=== PATIENT | female | born 1955 | race Caucasian/White ===

== ENCOUNTER 2020-12-26 12:55 | Outpatient (REF) | payer MEDICARE, SELFPAY ==
--- NOTE | ~2020-12-26 | XR_ITS ---
EXAMINATION: XR CERVICAL SPINE CLINICAL INFORMATION: Neck pain. COMPARISON: None. TECHNIQUE: 6 views of the cervical spine, inclusive of flexion and extension views, were obtained. FINDINGS: There is normal cervical lordosis. The vertebral heights and alignment is normal. Loss of C6-C7 disc height is seen. The rest of the disc heights are normal. There is mild ventral spondylosis C4-C5 and C5-C6 disc levels. The neural foramina are widely patent on oblique views. The craniovertebral junction and the C1/C2 alignment is normal. There is head tilt to the right, likely secondary to spasm. The prevertebral soft tissues are normal. XR/XR cervical spine min 6V IMPRESSION: Mild degenerative disc changes C5 C6-C7 disc levels without visible acute fracture dislocation. There is mild spondylosis as described above.
== END 2020-12-26 12:56 | disposition home or self-care (01) ==
LOC: HO.XRAY 12:55
PROVIDERS: PCP Internal Medicine; Visit Provider Physical Medicine & Rehabilitation
DX: M54.2 Cervicalgia (principal)
CPT/HCPCS: 72052

== ENCOUNTER 2020-12-28 12:21 | Outpatient (REF) | payer MEDICARE, SELFPAY ==
--- NOTE | ~2020-12-28 | XR_ITS ---
EXAMINATION: XR BILATERAL KNEE AP STANDING XR LEFT KNEE LATERAL VIEW CLINICAL INFORMATION: Pain right knee. Pain in left knee. COMPARISON: None TECHNIQUE: AP bilateral knee 1 view.] Left knee lateral one view. FINDINGS: AP BILATERAL KNEE: There is a total left knee prosthesis in satisfactory alignment. There is moderate loss of medial and ryfo-[id number] loss of lateral compartment right knee joint with periarticular spurring. No bony erosive changes or loose body seen. LATERAL VIEW LEFT KNEE: Reveals minimal suprapatellar joint effusion. The patellar distal femoral prosthesis is in satisfactory alignment. No evidence of loosening. The soft tissues are normal. XR/XR knee LT 2V IMPRESSION: 1. Degenerative changes medial and lateral compartment right knee with mild hallux valgus deformity. 2. There is a total left knee prosthesis with prosthetic components in satisfactory alignment. There is mild suprapatellar joint effusion.
--- NOTE | ~2020-12-28 | XR_ITS ---
EXAMINATION: XR BILATERAL KNEE AP STANDING XR LEFT KNEE LATERAL VIEW CLINICAL INFORMATION: Pain right knee. Pain in left knee. COMPARISON: None TECHNIQUE: AP bilateral knee 1 view.] Left knee lateral one view. FINDINGS: AP BILATERAL KNEE: There is a total left knee prosthesis in satisfactory alignment. There is moderate loss of medial and otgj-[id number]-kdskhqtn loss of lateral compartment right knee joint with periarticular spurring. No bony erosive changes or loose body seen. LATERAL VIEW LEFT KNEE: Reveals minimal suprapatellar joint effusion. The patellar distal femoral prosthesis is in satisfactory alignment. No evidence of loosening. The soft tissues are normal. XR/XR knee standing BI IMPRESSION: 1. Degenerative changes medial and lateral compartment right knee with mild hallux valgus deformity. 2. There is a total left knee prosthesis with prosthetic components in satisfactory alignment. There is mild suprapatellar joint effusion.
== END 2020-12-28 12:22 | disposition home or self-care (01) ==
LOC: HO.HOSX 12:21
PROVIDERS: PCP Internal Medicine; Visit Provider Orthopaedic Surgery
DX: T84.84XA Pain due to internal orthopedic prosthetic devices, implants and grafts, initial encounter (principal); M25.561 Pain in right knee; Z96.652 Presence of left artificial knee joint
CPT/HCPCS: 73560; 73565; 99212

== ENCOUNTER → 2021-01-05 11:42 | Outpatient (BNVA) | payer MEDICARE, SELFPAY | PROVIDERS: PCP Internal Medicine; Visit Provider Physician Assistant | DX: D12.6 Benign neoplasm of colon, unspecified (principal); K59.09 Other constipation | CPT/HCPCS: 99212 ==

== ENCOUNTER 2021-02-02 14:00 | Outpatient (RCR) | payer MEDICARE, SELFPAY | END 2021-02-28 09:41 | disposition other institution (70) | LOC: HO.PT 14:00 | PROVIDERS: PCP Physical Medicine & Rehabilitation; Visit Provider Physical Medicine & Rehabilitation | DX: M54.2 Cervicalgia (principal); M40.209 Unspecified kyphosis, site unspecified | CPT/HCPCS: 97110; 97112; 97140; 97161 ==

== ENCOUNTER 2021-02-17 07:26 | Day surgery (SDC) | payer MEDICARE, SELFPAY ==
--- NOTE | 2021-02-16 12:05 | HO.ANESPROP2 ---
Documented by User: Belkis Zurita 02/16/21 12:06 HPI - Anesthesia Eval Consult details Narrative: 65yo F for Colonoscopy PMFSH Active Problems Active Problems: All Active Problems (Updated 01/06/21 @ 06:43 by Phuong Bravo PA-C) Chronic constipation (Acute) Colon adenomas (Acute) History of total left knee replacement (TKR) (Acute) Past Medical History Medical History Chronic constipation Colon adenomas Family History Family History Sister Cancer Surgical History Surgical History H/O colonoscopy H/O knee surgery Social History Social History Household Members: None Alcohol intake: current Alcohol intake frequency: does not drink Smoking Status: Never smoker Use of substances other than those prescribed or required for medical reasons: No Advance Directives: No Advance Directives Information Provided: Yes Meds Allergies Allergy/AdvReac Type Severity Reaction Status Date / Time No Known Allergies Allergy Verified 01/05/21 12:03 Home Medications Medication Instructions Recorded Confirmed Last Taken Type acetaminophen 650 mg/20.3 mL oral 650 mg PO Q6H PRN 12/28/20 01/05/21 Unknown History suspension cholecalciferol (vitamin D3) 25 25 mcg PO DAILY 12/28/20 01/05/21 Unknown History mcg (1,000 unit) capsule hydrochlorothiazide 25 mg tablet 25 mg PO DAILY 12/28/20 01/05/21 Unknown History tizanidine 2 mg capsule 2 mg PO BEDTIME 12/28/20 01/05/21 Unknown History topiramate 25 mg sprinkle capsule 25 mg PO DAILY 12/28/20 01/05/21 Unknown History Exam Exam Date and Time: February 16, 2021 1205 Assessment and Plan Assessment Anesthesia Assessment: Chart Reviewed Documented by User: Jo Love 02/17/21 08:03 [facility] Past Medical History Medical History Chronic constipation Colon adenomas Family History Family History Sister Cancer Surgical History Surgical History H/O colonoscopy H/O knee surgery Social History Social History Household Members: None Alcohol intake: current Alcohol intake frequency: does not drink Smoking Status: Never smoker Use of substances other than those prescribed or required for medical reasons: No Advance Directives: No Advance Directives Information Provided: Yes Meds Allergies Allergy/AdvReac Type Severity Reaction Status Date / Time No Known Allergies Allergy Verified 01/05/21 12:03 Home Medications Medication Instructions Recorded Confirmed Last Taken Type acetaminophen 650 mg/20.3 mL oral 650 mg PO Q6H PRN 12/28/20 01/05/21 Unknown History suspension cholecalciferol (vitamin D3) 25 25 mcg PO DAILY 12/28/20 01/05/21 Unknown History mcg (1,000 unit) capsule hydrochlorothiazide 25 mg tablet 25 mg PO DAILY 12/28/20 01/05/21 Unknown History tizanidine 2 mg capsule 2 mg PO BEDTIME 12/28/20 01/05/21 Unknown History topiramate 25 mg sprinkle capsule 25 mg PO DAILY 12/28/20 01/05/21 Unknown History Exam Airway Mallampati Class: II TM Dist: >3cm Neck ROM: Full Denture: Upper Loose/Missing/Broken Teeth: Yes, Upper and Lower Heart: RRR Lungs: CTA Assessment and Plan Assessment Anesthesia Assessment: Anesthesia Plan Discussed and Chart Reviewed Final Anesthetic Review NPO: Yes ASA Class: II Final Preanesthetic Review: Meds/Allgs Chart Reviewed, Consent Obtained/Reviewed and Anes Risks/Benef Reviewed Patient Risk: Low Procedure Risk: Low Anesthetic Plan Anesthetic Plan: MAC: Disposition: Standard PACU
[2021-02-17 07:59] VITALS: BMI 37.8
[2021-02-17 08:19] VITALS: BP 124/71; PULSE 63; RESP 16; TEMP 36.1; O2SAT 95
[2021-02-17] MEDS: Lactated Ringers 1,000 ML 100 ML IVCONT (08:19)
--- NOTE | 2021-02-17 08:32 | W.PM.OPN ---
Operative Note Operative Note Date of Service: 02/20/21 Narrative: Pre-op diagnosis: Colon cancer screening, chronic constipation Post-op diagnosis: other (Colon polyps, diverticulosis) Procedure: COLONOSCOPY TILL CECUM WITH BIOPSIES Consent: Indications for the procedure and potential complications of bleeding, perforation, reaction to medications and missed diagnosis were discussed with the patient with the help of a medicare insurance specialist and informed consent was obtained. Instrument: Olympus PCF H 190 L variable stiffness pediatric colonoscope Monitoring: Vital signs and clinical assessment, intermittent blood pressure monitoring, continuous EKG monitoring, Pulse oximetry and Carbon Dioxide monitoring were done throughout the procedure. Colon withdrawl time was 14 minutes. Procedure: The patient was placed in the left lateral decubitis position and pre-procedure medications were administered. After a digital rectal examination of the ano-rectum, the video colonoscope was inserted into the rectum and advanced through the colon to the cecum. The colonoscope was slowly withdrawn in a retrograde panoramic fashion and the colon mucosa was carefully examined including a retroflexed view of the rectum. Findings and interventions are described below. Procedure Difficulty: Without difficulty Findings: Terminal Ileum: Not evaluated Cecum: Two 3-5 mm diminutive appearing polyps removed with the cold biopsy. Ascending Colon: Polypectomy site visualized in the proximal ascending colon and no recurrent polyp was seen - random biopsies were obtained Transverse Colon: Normal Descending Colon: Moderate diverticulosis Sigmoid Colon: Two 4-5 mm diminutive appearing polyps removed with the cold biopsy. Severe diverticulosis with luminal narrowing Rectum: Normal Ano-rectum: Normal Colon preparation: Excellent Impression and Post Procedure Diagnosis: Colonoscopy Findings: Four diminutive polyps removed No recurrent polyp noted at polypectomy site in the ascending colon - biopsies were obtained Moderate to severe diverticulosis seen in the left colon Plan: Await pathology results Patient has an appointment on 03/01/21 in the GI Clinic with KADEN Ortega. Repeat Colonoscopy interval based on path results - in 3-5 years if polyps are adenomatous and due to a history of adenomatous colon polyps. Above findings were reviewed with the patient and colon polyps and diverticulosis handouts were given in the discharge area Surgeon: Dilip Rivera MD Anesthesia: MAC (Angelika Clemens CRNA) [facility] Nurse Practitioner: Bismark Naqvi Estimated blood loss (mL): 0 Pathology: other (A- CECAL POLYPS B- ASCENDING COLON POLYPECTOMY SITE C- SIGMOID POLYPS) Condition: stable Disposition: PACU
--- NOTE | 2021-02-17 08:32 | MHC.SHP ---
Pre-Procedural Eval Section A The patient is an INPATIENT: No The History & Physical has been completed within 30 days and I have reviewed it.: No Section B Chief Complaint: Colon Cancer Details of Present Illness: A 65-year-old female personal history of colon polyps follows up to day for polyp surveillance colonoscopy consult. She has chronic constipation, that she states has been ongoing pretty much lifelong, actually is not a change for her. She has not followed a bowel regimen. She has no other associated symptoms. She has no abdominal pain rectal bleeding fever or chills. She has very good appetite. She had colonoscopy colon2018/ -revealing adenomas-repeat 1-[address] Rivera Relevant Family History (Specify if Yes): Yes Relevant Social History: None Present Medications: see Short Stay Collaborative assessment Medical History: Significant History (Hx of colon polyps, chronic constipation) History of Previous Operations: Relevant previous surgery/procedure and date(s) (H/O colonoscopy H/O knee surgery) Allergies: Allergies Allergy/AdvReac Type Severity Reaction Status Date / Time No Known Allergies Allergy Verified 01/05/21 12:03 Review of Systems Sugical H&P ROS: Negative: Constitution, Cardiovascular and Respiratory and Yes, Specify: Gastrointestinal (Constipation) Exam Surgical H&P Exam: Normal: Heart, Normal: Lungs, Normal: Extremities and Normal: Abdomen Plan Diagnosis/Plan: Unchanged I have reviewed the history and physical and performed a pertinent physical examination on my patient. No changes have occurred unless specified.
[2021-02-17 09:19] VITALS: BP 112/69; PULSE 60; RESP 16; TEMP 36.4; O2SAT 99
[2021-02-17 09:34] VITALS: BP 115/70; PULSE 60; RESP 18; O2SAT 97
== END 2021-02-17 10:04 | disposition home or self-care (01) ==
PROVIDERS: PCP Internal Medicine; Visit Provider Internal Medicine Gastroenterology
PROC: 0DJD8ZZ Inspection of Lower Intestinal Tract, Via Natural or Artificial Opening Endoscopic (ICD-10-PCS; CPT 45378; principal; 2021-02-17 08:30)
DX: Z12.11 Encounter for screening for malignant neoplasm of colon (principal); Z86.010 Personal history of colon polyps; D12.0 Benign neoplasm of cecum; K63.5 Polyp of colon; K57.30 Diverticulosis of large intestine without perforation or abscess without bleeding; K59.09 Other constipation; Z79.899 Other long term (current) drug therapy
CPT/HCPCS: 45380; 88305

== ENCOUNTER → 2021-03-01 10:34 | Outpatient (BNVA) | payer MEDICARE, SELFPAY | PROVIDERS: PCP Internal Medicine; Visit Provider Physician Assistant | DX: Z13.89 Encounter for screening for other disorder (principal) | CPT/HCPCS: Q3014 ==

== ENCOUNTER 2021-03-02 13:26 | Outpatient (REF) | payer MEDICARE, SELFPAY ==
[2021-03-02 14:26] LABS: COVID-19 Test Negative (Negative); IDNOW Serial# 55D5AD1C
== END 2021-03-02 13:27 | disposition home or self-care (01) ==
LOC: HO.LAB 13:26
PROVIDERS: Visit Provider Internal Medicine
DX: Z20.822 Contact with and (suspected) exposure to COVID-19 (principal)
CPT/HCPCS: 36415; 87635; C9803

== ENCOUNTER 2021-08-11 13:22 | Outpatient (REF) | payer MEDICARE, SELFPAY ==
--- NOTE | ~2021-08-11 | MM_ITS ---
EXAMINATION: MM SCREENING DIGITAL BREAST TOMOSYNTHESIS, BILATERAL CLINICAL INFORMATION: Screening. Asymptomatic. The lifetime risk of breast cancer based on the Tyrer-Cuzick Model is 3%. COMPARISON: Mammography: 08/12/2020, 08/07/2019, 08/05/2018 TECHNIQUE: Digital breast tomosynthesis is performed in both the craniocaudal and mediolateral oblique views along with computer-aided detection (CAD). Synthesized 2D images are generated from the tomosynthesis. Additional right MLO view is provided. FINDINGS: There are scattered areas of fibroglandular density (ACR BI-RADS breast composition Category b). There are no significant masses, abnormal calcifications, or other abnormalities. There are scattered bilateral benign ductal secretory and some round calcifications again seen predominantly upper outer quadrants. The axilla and skin contours are unremarkable. MM/MM tomosynthesis screening BI IMPRESSION: No mammographic evidence of malignancy. ASSESSMENT: BI-RADS 2: Benign RECOMMENDATION: Routine annual mammography screening. This patient's information was entered into a reminder system with a target due date for their next mammogram.
== END 2021-08-11 13:23 | disposition home or self-care (01) ==
LOC: HO.MAMMO 13:22
PROVIDERS: Visit Provider Internal Medicine
DX: Z12.31 Encounter for screening mammogram for malignant neoplasm of breast (principal)
CPT/HCPCS: 77063; 77067

== ENCOUNTER → 2021-09-29 10:19 | Outpatient (BNVA) | payer MEDICARE, SELFPAY | PROVIDERS: PCP Internal Medicine; Visit Provider Orthopaedic Surgery | DX: M17.11 Unilateral primary osteoarthritis, right knee (principal) | CPT/HCPCS: 99212 ==

== ENCOUNTER → 2021-11-15 14:43 | Outpatient (BNVA) | payer MEDICARE, SELFPAY | PROVIDERS: PCP Internal Medicine; Visit Provider Obstetrics & Gynecology | DX: N81.10 Cystocele, unspecified (principal) | CPT/HCPCS: 99202 ==

== ENCOUNTER → 2021-12-19 12:33 | Outpatient (BNVA) | payer MEDICARE, SELFPAY | PROVIDERS: PCP Internal Medicine; Visit Provider Orthopaedic Surgery | DX: Z13.89 Encounter for screening for other disorder (principal) ==

== ENCOUNTER → 2022-01-11 13:46 | Outpatient (BNVA) | payer MEDICARE, SELFPAY | PROVIDERS: Visit Provider Physician Assistant | DX: Z01.818 Encounter for other preprocedural examination (principal); M17.11 Unilateral primary osteoarthritis, right knee; I10 Essential (primary) hypertension; E78.00 Pure hypercholesterolemia, unspecified; Z96.652 Presence of left artificial knee joint; Z90.49 Acquired absence of other specified parts of digestive tract | CPT/HCPCS: 99212 ==

== ENCOUNTER 2022-01-16 13:54 | Inpatient (IN) | payer MEDICARE, SELFPAY ==
[2021-12-19 13:53] LABS: MANUAL DIFF FLAG NO
--- NOTE | 2021-12-19 13:54 | ECG_ITS ---
Test Reason : preop Blood Pressure : / mmHG Vent. Rate : 058 BPM Atrial Rate : 000 BPM P-R Int : 000 ms QRS Dur : 098 ms QT Int : 424 ms P-R-T Axes : 000 -42 023 degrees QTc Int : 416 ms Junctional rhythm Left axis deviation Abnormal ECG When compared with ECG of 20-DEC-2019 15:42, Junctional rhythm has replaced Sinus rhythm Vent. rate has decreased BY 28 BPM Referred By: Chad Davidson Electronically Signed By:
[2021-12-19 14:14] LABS: Basophils Absolute Auto 0.1 X10*3/uL (0.0-0.2); Basophils Percent Auto 0.8 % (0-2); Eosinophils Absolute Auto 0.1 X10*3/uL (0.0-0.4); Eosinophils Percent Auto 1.5 % (0-4); Hematocrit 39.7 % (37.0-47.0); Hemoglobin 12.8 g/dl (12.0-16.0); Imm Gran Abs Auto 0.02 X10*3/uL (0.00-0.03); Imm Gran Pct Auto 0.3 % (0.0-0.4); Lymphocytes Absolute Auto 1.9 X10*3/uL (1.2-4.9); Lymphocytes Percent Auto 25.8 % (20-40); Mean Corpuscular HGB Conc 32.2 g/dl (31.0-35.0); Mean Corpuscular Hemoglobin 29.7 pg (27.0-33.0); Mean Corpuscular Volume 92.1 fL (80.0-98.0); Mean Platelet Volume 8.5 fL (9.4-12.3); Monocytes Absolute Auto 0.6 X10*3/uL (0.1-1.2); Monocytes Percent Auto 8.2 % (2-11); Neutrophils Absolute Auto 4.7 x10*3/uL (2.0-8.3); Neutrophils Percent Auto 63.4 % (45-73); Platelet Count 376 X10*3/uL (160-400); Red Blood Count 4.31 X10*6/uL (4.20-5.50); Red Cell Distribution Width 13.1 % (11.0-16.0); White Blood Count 7.5 X10*3/uL (4.8-10.8)
[2021-12-19 14:40] LABS: Anion Gap 11 (12-20); Blood Urea Nitrogen 16 mg/dL (9-16); Calcium 10.2 mg/dL (8.4-10.2); Carbon Dioxide 33 mmol/L (22-29); Chloride 102 mmol/L (96-108); Estimated Glomerular Filt Rate > 60; Glucose Random 95 mg/dL (60-115); Potassium 4.2 mmol/L (3.3-5.1); Sodium 142 mmol/L (135-145)
[2022-01-05 10:18] VITALS: BP 115/68; PULSE 69; RESP 20; O2SAT 97; BMI 35.1
--- NOTE | 2022-01-05 10:32 | P.CONAN_ITS ---
Documented by User: Belkis Zurita NP 01/15/22 09:22 HPI - Anesthesia Eval Consult details Narrative: 66yo F for Right Knee Replacement Total PCP clearance pending BP check and BMP s/p left TKA 2018 with spinal and block - no issues PMFSH Active Problems Active Problems: All Active Problems (Updated 01/05/22 @ 10:15 by Samantha Denney RN) History of total left knee replacement (TKR) (Acute) Diverticulosis of colon (Acute) Arthritis of right knee (Acute) Female cystocele (Acute) Chronic constipation (Acute) Colon adenomas (Acute) Past Medical History Medical History Chronic constipation Colon adenomas COVID-19 vaccine series completed Elevated cholesterol HTN (hypertension) Hypothyroid Osteoarthritis Family History Family History Sister Cancer Family history of problems with anesthesia: No Surgical History Surgical History H/O colonoscopy History of total left knee replacement Hx laparoscopic cholecystectomy Hx of cataract surgery History of Problems with Anesthesia: No Social History Social History Household Members: None Are you a primary medicare sales executive to a significant other at home: No Do you presently have visiting nurse or other home services: Yes (CLINICAL TRIALS ASSISTANT) Alcohol intake: never Patient Tobacco Use Status: Never used Tobacco Use of substances other than those prescribed or required for medical reasons: No Have you been hit, kicked, punched, or otherwise hurt by someone within the past year? If so, by whom?: No Are you DNR?: No Advance Directives: Yes Advance Directives Information Provided: Yes Advance Directives on File: Yes Advance Directives Date on File: 01/20/18 Recently lost weight without trying: No Eating poorly because of decreased appetite: No Nutrition Risks: No Nutritional Risk Poor oral hygiene: No (upper full denture) Narrative Narrative: No recent illness No CP/SOB with activity, limited to pain Meds Allergies Allergy/AdvReac Type Severity Reaction Status Date / Time No Known Allergies Allergy Verified 01/11/22 13:56 Home Medications Medication Instructions Recorded Confirmed Last Taken Type hydrochlorothiazide 25 mg tablet 25 mg PO DAILY 12/28/20 01/04/22 01/16/22 History cholecalciferol (vitamin D3) 25 25 mcg PO DAILY 01/04/22 01/04/22 Unknown History mcg (1,000 unit) capsule (Vitamin D3) levothyroxine 112 mcg tablet 112 mcg PO DAILY 01/04/22 01/04/22 01/16/22 History (Synthroid) ibuprofen 800 mg tablet 800 mg PO Q8H PRN 01/05/22 01/04/22 Unknown History hydrochlorothiazide 12.5 mg tablet 12.5 mg PO DAILY 01/12/22 01/16/22 01/16/22 History Exam Exam Date and Time: January 05, 2022 103 Height,Weight and Vital Signs: Height 5 ft 2 in Weight 87.09 kg Last Vital Signs Pulse 69 01/05/22 10:18 Resp 20 01/05/22 10:18 BP 115/68 01/05/22 10:18 Pulse Ox 97 01/05/22 10:18 Pertinent Lab Results Pertinent Lab Results: Laboratory Tests 12/19/21 12/19/21 13:51 13:51 WBC 7.5 RBC 4.31 Hgb 12.8 Hct 39.7 MCV 92.1 MCH 29.7 MCHC 32.2 RDW 13.1 Plt Count 376 MPV 8.5 L Immature Gran % (Auto) 0.3 Neut % (Auto) 63.4 Lymph % (Auto) 25.8 [place] % (Auto) 8.2 Eos % (Auto) 1.5 Baso % (Auto) 0.8 Lymph # (Auto) 1.9 [place] # (Auto) 0.6 Eos # (Auto) 0.1 Baso # (Auto) 0.1 Abs Immat Gran (auto) 0.02 Absolute Neuts (auto) 4.7 Absolute Nucleated RBC 0.000 Nucleated RBC % (auto) 0.0 Sodium 142 Potassium 4.2 Chloride 102 Carbon Dioxide 33 H Anion Gap 11 L BUN 16 Creatinine 0.75 Estim Creat Clear Calc TNP Estimated GFR > 60 Random Glucose 95 Calcium 10.2 Narrative Narrative: EKG 12/2021 Sinus bradycardia with sinus arrhythmia Left axis deviation Abnormal ECG When compared with ECG of 19-DEC-2021 13:59, No significant changes seen Airway Mallampati Class: II TM Dist: >3cm Neck ROM: Full Denture: Upper Heart: RRR Lungs: CTAB Assessment and Plan Assessment Anesthesia Assessment: Anesthesia Plan Discussed and PAT Visit Final Anesthetic Review Family History of Problems with Anesthesia: No History of Problems with Anesthesia: No Documented by User: Kevin Bowman MD 01/16/22 14:11 PMFSH Past Medical History Medical History Chronic constipation Colon adenomas COVID-19 vaccine series completed Elevated cholesterol HTN (hypertension) Hypothyroid Osteoarthritis Family History Family History Sister Cancer Surgical History Surgical History H/O colonoscopy History of total left knee replacement Hx laparoscopic cholecystectomy Hx of cataract surgery Social History Social History Household Members: None Are you a primary medicare sales executive to a significant other at home: No Do you presently have visiting nurse or other home services: Yes (CLINICAL TRIALS ASSISTANT) Alcohol intake: never Patient Tobacco Use Status: Never used Tobacco Use of substances other than those prescribed or required for medical reasons: No Have you been hit, kicked, punched, or otherwise hurt by someone within the past year? If so, by whom?: No Are you DNR?: No Advance Directives: Yes Advance Directives Information Provided: Yes Advance Directives on File: Yes Advance Directives Date on File: 01/20/18 Recently lost weight without trying: No Eating poorly because of decreased appetite: No Nutrition Risks: No Nutritional Risk Poor oral hygiene: No (upper full denture) Meds Allergies Allergy/AdvReac Type Severity Reaction Status Date / Time No Known Allergies Allergy Verified 01/11/22 13:56 Home Medications Medication Instructions Recorded Confirmed Last Taken Type hydrochlorothiazide 25 mg tablet 25 mg PO DAILY 12/28/20 01/04/22 01/16/22 History cholecalciferol (vitamin D3) 25 25 mcg PO DAILY 01/04/22 01/04/22 Unknown History mcg (1,000 unit) capsule (Vitamin D3) levothyroxine 112 mcg tablet 112 mcg PO DAILY 01/04/22 01/04/22 01/16/22 History (Synthroid) ibuprofen 800 mg tablet 800 mg PO Q8H PRN 01/05/22 01/04/22 Unknown History hydrochlorothiazide 12.5 mg tablet 12.5 mg PO DAILY 01/12/22 01/16/22 01/16/22 History Assessment and Plan Final Anesthetic Review NPO: Yes ASA Class: III Final Preanesthetic Review: No Changes in Pt Med Stat, Meds/Allgs Chart Reviewed, Consent Obtained/Reviewed and Anes Risks/Benef Reviewed Patient Risk: Intermediate Procedure Risk: Intermediate Anesthetic Plan Anesthetic Plan: MAC:, Spinal and Regional Block Disposition: Standard PACU
[2022-01-05 13:25] LABS: MRSA Nasal PCR POSITIVE (Negative); SA Nasal PCR POSITIVE (Negative)
[2022-01-16] VITALS (14 sets, daily range): BP systolic 102–135; BP diastolic 47–98; PULSE 53–80; RESP 16–18; TEMP 36–37.3; O2SAT 93–100
--- NOTE | ~2022-01-16 | XR_ITS ---
EXAMINATION: XR KNEE, RIGHT CLINICAL INFORMATION: Right knee replacement COMPARISON: Previous x-ray December 2020 TECHNIQUE: 2 views of the right knee. FINDINGS: There is a new 3 component right knee replacement in satisfactory position. No fracture or dislocation is seen. There are postoperative changes to the soft tissues. XR/XR knee RT 2V IMPRESSION: Satisfactory appearance of right knee replacement.
--- NOTE | 2022-01-16 07:49 | MHC.SHP ---
Pre-Procedural Eval Section A Date of Service: 01/16/22 The patient is an INPATIENT: No Changes since office visit: Yes Patient answered all questions; No Cold of Flu in the past 2 weeks, No New Medical Problems and No Changes in Medication The History & Physical has been completed within 30 days and I have reviewed it.: Yes Section B Chief Complaint: Osteoarthritis Right Knee Allergies: Allergies Allergy/AdvReac Type Severity Reaction Status Date / Time No Known Allergies Allergy Verified 01/11/22 13:56 Plan I have reviewed the history and physical and performed a pertinent physical examination on my patient. No changes have occurred unless specified.
[2022-01-16 10:22] LABS: IDNOW Serial# 16C4AD1C
[2022-01-16 10:23] LABS: COVID-19 Test Negative (Negative)
[2022-01-16] MEDS: Lactated Ringers 1,000 ML 100 ML IVCONT (10:40)
[2022-01-16] MEDS: vancomycin HCL 1,500 MG in 0.9 % Sodium Chloride 500 ML 333.33 MG IV ×2 (10:41→21:15)
--- NOTE | 2022-01-16 13:21 | P.BOP_ITS ---
Brief Operative Note Date of Service: 01/16/22 Pre-op diagnosis: Right knee OA Post-op diagnosis: same Procedure: Right TKA Implants: [place] Triathalon posterio stabilized press fit 01/18/10/a Surgeon: Chad Davidson MD Anesthesia: regional and spinal Was an Communication Skills Instructor used for this Procedure?: Yes Communication Skills Instructor: Elida Gomez Estimated blood loss (mL): 150 IV fluids (mL): 1,000 Pathology: other Condition: stable Disposition: PACU
--- NOTE | 2022-01-16 13:24 | W.PM.OPN ---
Operative Note Operative Note Date of Service: 01/16/22 Narrative: Pre-op diagnosis: Right knee OA Post-op diagnosis: same Procedure: Right TKA Implants: [place] Triathalon posterior stabilized press fit 01/18/10PS/29a Surgeon: Chad Davidson MD Anesthesia: regional and spinal Was an Industrial Illuminating Engineer used for this Procedure?: Yes Industrial Illuminating Engineer: Elida Goemz Estimated blood loss (mL): 150 IV fluids (mL): 1,000 Pathology: other Condition: stable Disposition: PACU Procedure in detail: The patient was brought to the operating room and prepped and draped in standard sterile fashion. A time-out was called to identify proper site proper procedure proper surgeon and IV antibiotics were administered. 1 g of IV tranexamic acid was administered. I began by making a midline incision to the retinaculum and performed a medial parapatellar arthrotomy. The patella was translated laterally and the knee was flexed up. The lateral tibial plateua and the MFC were eburnated. I performed a small medial peel and resected the infrapatellar fat pad. [place]'s line was then used to drill my intramedullary femoral guide and my distal femur cut of 10 mm was made in 5 degrees of valgus while protecting the soft tissues. I then measured a # 3 femur and placed my cutting guide and made my anterior posterior and chamfer cuts protecting the soft tissues at all times. I then made my box but removing the PCL. Once I was satisfied with my cuts I turned my attention to the tibia. I removed the meniscus medially and laterally and , using an external cutting guide, in line with the tibial crest and the third ray, I made my distal tibial cut in 0 deg slope of while protecting the PCL the posterior soft tissues at all times. An extension block was used to confirm appropriate amount of bony resection. I then sized a #3 tibia and once I was satisfied that there was complete tibial coverage I placed my trial and with the trial femur in place took the knee through range of motion. I was satisfied with the extension and flexion as well as the stability at 0, 30 and 90 degrees. The knee was well balanced in flexion and extension. I then turned my attention to the patella where I removed 1 cm from the undersurface of the patella and then trialed a 29a patellar button. Again the knee was taken through range of motion I was satisfied with the tracking. I then returned to the femur and drilled my femoral lug holes and prepared the tibia. A femoral bone plug was placed and the knee was irrigated copiously. I then press fit the patella, tibia and femur in standard fashion. I trialed different inserts until I selected a # 10 insert. The final insert was placed and a 3 minutes iodine soak with local TXA was performed. The knee was then closed with a running Quill suture, a 3 0 Vicryl and juliette on the skin. Patient was then placed in sterile dressing and brought to recovery room in stable condition there were no known complications.
[2022-01-16] MEDS: Acetaminophen 325 MG TABLET 650 MG PO (14:32)
[2022-01-16] MEDS: Dextrose 5 % and 0.45 % NaCl 1,000 ML 80 ML IVCONT (15:55)
--- NOTE | 2022-01-16 16:23 | HO.PM.IMCN ---
History of Present Illness Data of Consult Service Date: 01/16/22 Requesting physician: Chad Davidson Primary Care Provider: Ana Cristina Jasso MD HPI 66-year-old woman with a history of hypertension, hypothyroidism admitted by Orthopedic surgery and is status post right total knee arthroplasty. Hemodynamically stable, denies nausea or vomiting. Pain is controlled at this time. Resting in bed. Review of Systems Review of Systems: Denies any recent fever chills or decrease in appetite respiratory denies any shortness of breath coverage production cardiovascular Denies chest pain gastrointestinal denies any dysphagia abdominal pain nausea vomiting or diarrhea genitourinary denies any dysuria frequency or hematuria musculoskeletal denies any joint pain or swelling neuropsych denies any weakness or seizures all other systems reviewed are negative [facility] Medical History Chronic constipation Colon adenomas COVID-19 vaccine series completed Elevated cholesterol HTN (hypertension) Hypothyroid Osteoarthritis Family History Sister Cancer Surgical History H/O colonoscopy History of total left knee replacement Hx laparoscopic cholecystectomy Hx of cataract surgery Social History Household Members: None Are you a primary rn transitional care to a significant other at home: No Do you presently have visiting nurse or other home services: Yes ([employer]) Alcohol intake: never Patient Tobacco Use Status: Never used Tobacco Use of substances other than those prescribed or required for medical reasons: No Have you been hit, kicked, punched, or otherwise hurt by someone within the past year? If so, by whom?: No Are you DNR?: No Advance Directives: Yes Advance Directives Information Provided: Yes Advance Directives on File: Yes Advance Directives Date on File: 01/20/18 Recently lost weight without trying: No Eating poorly because of decreased appetite: No Nutrition Risks: No Nutritional Risk Poor oral hygiene: No (upper full denture) Meds Allergies Allergy/AdvReac Type Severity Reaction Status Date / Time No Known Allergies Allergy Verified 01/11/22 13:56 Active Medications: Current Medications Acetaminophen (Acetaminophen 325 Mg Tablet) 650 mg PO Q6H PRN PRN Reason: Pain, Mild (Pain Scale 1-3) Last Admin: 01/16/22 14:32 Dose: 650 mg Documented by: Celecoxib (Celecoxib 200 Mg Capsule) 200 mg PO BID [facility] Docusate Sodium (Docusate Sodium 100 Mg Capsule) 100 mg PO BID [facility] Hydromorphone HCl (Hydromorphone Hcl 1 Mg/Ml Syringe) 0.25 mg IVPUSH Q4H PRN; Protocol PRN Reason: Pain, Severe (Pain Scale 7-10) Dextrose/Sodium Chloride (D51/2ns) 1,000 mls @ 80 mls/hr IVCONT .[id number] [facility] Last Admin: 01/16/22 15:55 Dose: 80 mls/hr Documented by: Vancomycin HCl 1,500 mg/ (Sodium Chloride) 500 mls @ 333.333 mls/hr IV POSTOP ONE Stop: 01/16/22 17:42 Levothyroxine Sodium (Levothyroxine Sodium 112 Mcg Tablet) 112 mcg PO DAILY@0600 [facility] Ondansetron HCl (Ondansetron Hcl 4 Mg/2 Ml Vial) 4 mg IVPUSH Q8H PRN PRN Reason: Nausea and Vomiting Oxycodone HCl (Oxycodone Hcl Immed Release 5 Mg Tablet) 10 mg PO Q4H PRN PRN Reason: Pain, Moderate (Pain Scale 4-6 Oxycodone HCl (Oxycodone Hcl Er 10 Mg Tab.Er.12h) 10 mg PO BID [facility] Sodium Chloride (0.9 % Sodium Chloride Flush 3 Ml Syringe) 3 ml IVFLUSH QSHIFT [facility] Home Medications Medication Instructions Recorded Confirmed Last Taken Type cholecalciferol (vitamin D3) 25 25 mcg PO DAILY 01/04/22 01/04/22 Unknown History mcg (1,000 unit) capsule (Vitamin D3) levothyroxine 112 mcg tablet 112 mcg PO DAILY 01/04/22 01/04/22 01/16/22 History (Synthroid) ibuprofen 800 mg tablet 800 mg PO Q8H PRN 01/05/22 01/04/22 Unknown History hydrochlorothiazide 12.5 mg tablet 18.75 mg PO DAILY 01/12/22 01/16/22 01/16/22 History Physical Exam Vital Signs and Narrative: Vital Signs: Last Vital Signs Temp 97.2 F 01/16/22 16:00 Pulse 55 01/16/22 16:00 Resp 16 01/16/22 16:00 BP 119/72 01/16/22 16:00 Pulse Ox 98 01/16/22 16:00 BMI result Body Mass Index 35.1 Appearing in no acute distress head is normocephalic atraumatic eyes pupils are PERRLA sclera is anicteric mouth throat mucous membranes are intact and moist neck is supple no lymphadenopathy, no JVD noted lung sounds are clear to auscultation heart regular rate rhythm, clear S1, S2 positive bowel sounds, abdomen is soft, nontender neuro patient is alert x3, no focal deficits Dressing to right knee with surgical dressing, surgical wound not visualized Results Labs CBC and Chem 7: 12/19/21 13:51 12/19/21 13:51 Labs: Laboratory Results - last 24 hr 01/16/22 09:35 COVID-19 (BOUBACAR) Negative COVID-19 Clin Com See Note Imaging Radiologist's Impressions: Impressions Knee X-Ray 01/16/22 14:00 IMPRESSION: Satisfactory appearance of right knee replacement. Assessment and Plan (1) H/O: HTN (hypertension): Status: Acute Plan 66-year-old woman admitted by Orthopedic surgery and status post right total knee arthroplasty Right total knee arthroplasty Management as per surgical team Pain management Hypertension. Stable blood pressure Continue hydrochlorothiazide Hypothyroidism Continue levothyroxine DVT prophylaxis as per surgical team Attending Dr. Simon Full code
[2022-01-16] MEDS: oxyCODONE HCl Immed Release 5 MG TABLET 10 MG PO (18:51)
[2022-01-16] MEDS: HYDROmorphone HCl 1 MG/ML SYRINGE 0.25 MG IVPUSH (19:08)
[2022-01-16] MEDS: Celecoxib 200 MG CAPSULE PO (21:15)
[2022-01-16] MEDS: Docusate Sodium 100 MG CAPSULE PO (21:15)
[2022-01-16] MEDS: oxyCODONE HCl ER 10 MG TAB.ER.12H PO (21:15)
[2022-01-17 04:00] VITALS: BP 101/61; PULSE 66; RESP 18; TEMP 36.1; O2SAT 94
[2022-01-17] MEDS: Levothyroxine Sodium 112 MCG TABLET PO (06:13)
[2022-01-17] MEDS: Dextrose 5 % and 0.45 % NaCl 1,000 ML 80 ML IVCONT ×2 (06:13→20:25)
[2022-01-17 06:18] LABS: MANUAL DIFF FLAG NO
[2022-01-17 06:22] LABS: Basophils Percent Auto 0.1 % (0-2); Hematocrit 36.4 % (37.0-47.0); Hemoglobin 12.3 g/dl (12.0-16.0); Imm Gran Abs Auto 0.08 X10*3/uL (0.00-0.03); Imm Gran Pct Auto 0.6 % (0.0-0.4); Lymphocytes Percent Auto 6.8 % (20-40); Mean Corpuscular HGB Conc 33.8 g/dl (31.0-35.0); Mean Corpuscular Hemoglobin 30.6 pg (27.0-33.0); Mean Corpuscular Volume 90.5 fL (80.0-98.0); Mean Platelet Volume 8.5 fL (9.4-12.3); Monocytes Absolute Auto 1.1 X10*3/uL (0.1-1.2); Monocytes Percent Auto 7.6 % (2-11); Neutrophils Absolute Auto 11.9 x10*3/uL (2.0-8.3); Neutrophils Percent Auto 84.9 % (45-73); Platelet Count 308 X10*3/uL (160-400); Red Blood Count 4.02 X10*6/uL (4.20-5.50); Red Cell Distribution Width 12.9 % (11.0-16.0); White Blood Count 14.1 X10*3/uL (4.8-10.8)
[2022-01-17 06:37] LABS: Anion Gap 11 (12-20); Blood Urea Nitrogen 14 mg/dL (9-16); Calcium 8.9 mg/dL (8.4-10.2); Carbon Dioxide 28 mmol/L (22-29); Chloride 104 mmol/L (96-108); Creatinine Clr Calc Pharmacy 90.4; Estimated Glomerular Filt Rate > 60; Glucose Fasting 127 mg/dL (60-99); Potassium 3.8 mmol/L (3.3-5.1); Sodium 139 mmol/L (135-145)
[2022-01-17 06:58] VITALS: BP 124/73; PULSE 60; RESP 19; TEMP 36.6; O2SAT 92
--- NOTE | 2022-01-17 07:44 | P.PNOP_ITS ---
Subjective Subjective Date of Service: 01/17/22 Interval history: POD1 s/p RTKA. Patient is resting in bed comfortably. No overnight events. Pain is well managed. No additional complaints. Physical Exam Vital Signs: Vital Signs: Last Vital Signs Temp 97.8 F 01/17/22 06:58 Pulse 60 01/17/22 06:58 Resp 19 01/17/22 06:58 BP 124/73 01/17/22 06:58 Pulse Ox 92 01/17/22 06:58 BMI result Body Mass Index 35.1 Const: General: cooperative, healthy appearing and no acute distress Resp: Effort & Inspection: normal respiratory effort and able to speak in complete sentences Cardio: Rate: regular rate Peripheral pulses: Peripheral pulses 2+ throughout GI: Palpation (GI): Soft to palpation Skin: Lesions: no lesions Rashes: no rashes Extrem: Other: Right knee no erythema or drainage. Aquacel is clean, dry, and intact. NVI. Procedures Date of Service Date of Service: 01/17/22 Progress Note: A&P Assessment and plan (1) Status post total right knee replacement: Status: Acute Plan Continue pain mgmnt Begin ASA for dvt ppx begin PT for RTKA Dispo planning-Pending PT eval, pain mgmnt Fall Risk Details Current Medications: Current Medications Acetaminophen (Acetaminophen 325 Mg Tablet) 650 mg PO Q6H PRN PRN Reason: Pain, Mild (Pain Scale 1-3) Last Admin: 01/16/22 14:32 Dose: 650 mg Documented by: Celecoxib (Celecoxib 200 Mg Capsule) 200 mg PO BID [facility] Last Admin: 01/16/22 21:15 Dose: 200 mg Documented by: Docusate Sodium (Docusate Sodium 100 Mg Capsule) 100 mg PO BID [facility] Last Admin: 01/16/22 21:15 Dose: 100 mg Documented by: Hydromorphone HCl (Hydromorphone Hcl 1 Mg/Ml Syringe) 0.25 mg IVPUSH Q4H PRN; Protocol PRN Reason: Pain, Severe (Pain Scale 7-10) Last Admin: 01/16/22 19:08 Dose: 0.25 mg Documented by: Dextrose/Sodium Chloride (D51/2ns) 1,000 mls @ 80 mls/hr IVCONT .[id number] [facility] Last Admin: 01/17/22 06:13 Dose: 80 mls/hr Documented by: Levothyroxine Sodium (Levothyroxine Sodium 112 Mcg Tablet) 112 mcg PO DAILY@0600 [facility] Last Admin: 01/17/22 06:13 Dose: 112 mcg Documented by: Ondansetron HCl (Ondansetron Hcl 4 Mg/2 Ml Vial) 4 mg IVPUSH Q8H PRN PRN Reason: Nausea and Vomiting Oxycodone HCl (Oxycodone Hcl Immed Release 5 Mg Tablet) 10 mg PO Q4H PRN PRN Reason: Pain, Moderate (Pain Scale 4-6 Last Admin: 01/16/22 18:51 Dose: 10 mg Documented by: Oxycodone HCl (Oxycodone Hcl Er 10 Mg Tab.Er.12h) 10 mg PO BID [facility] Last Admin: 01/16/22 21:15 Dose: 10 mg Documented by: Sodium Chloride (0.9 % Sodium Chloride Flush 3 Ml Syringe) 3 ml IVFLUSH QSHIFT [facility] Last Admin: 01/16/22 22:47 Dose: Not Given Documented by: Time Spent With Patient Time: Total time spent is greater than 50% in coordination of care (as documented) at patient's floor/unit and/or counseling patient: Time with patient: less than 15 minutes Quality Stroke Does the patient have a stroke diagnosis?: No VTE Prior VTE?: No VTE Risk Level:: Surgical - very high VTE Device Contraindication: N/A - Device Ordered VTE Drug Contraindication: N/A - Med Ordered
--- NOTE | 2022-01-17 08:18 | HO.POSTANES ---
Post Anesthesia Evaluation Post Anesthesia Evaluation Vital Signs: Vital Signs Temp Pulse Resp BP Pulse Ox 01/17/22 06:58 97.8 F 60 19 124/73 92 01/17/22 04:00 97 F 66 18 101/61 94 01/16/22 23:34 97.2 F 66 18 117/74 94 Anesthesia: Spinal and Nerve Block Mental Status: Awake Pain Control: Satisfactory Nausea/Vomiting: None Hydration: Adequate Anesthesia-Related Issues: No Anes. Related Issues
[2022-01-17] MEDS: oxyCODONE HCl ER 10 MG TAB.ER.12H PO ×2 (08:55→20:25)
[2022-01-17] MEDS: oxyCODONE HCl Immed Release 5 MG TABLET 10 MG PO ×2 (08:55→16:29)
[2022-01-17] MEDS: Docusate Sodium 100 MG CAPSULE PO ×2 (08:55→20:25)
[2022-01-17] MEDS: Celecoxib 200 MG CAPSULE PO ×2 (08:56→20:25)
[2022-01-17] MEDS: 0.9 % Sodium Chloride Flush 3 ML SYRINGE IVFLUSH (08:56)
--- NOTE | 2022-01-17 09:27 | P.PNIM_ITS ---
Subjective Subjective Date of Service: 01/17/22 Review of Systems Follow up consult FABI Doing ok pain with ambulation walking with PT Physical Exam Vital Signs: Vital Signs: Last Vital Signs Temp 97.8 F 01/17/22 06:58 Pulse 60 01/17/22 06:58 Resp 19 01/17/22 06:58 BP 124/73 01/17/22 06:58 Pulse Ox 92 01/17/22 06:58 BMI result Body Mass Index 35.1 Appearing in no acute distress lung sounds are clear to auscultation heart regular rate rhythm, clear S1, S2 positive bowel sounds, abdomen is soft, nontender neuro patient is alert x3, no focal deficits Right knee surgical dressing intact surgical incision not visualized Objective Data Active Medications Acetaminophen (Acetaminophen 325 Mg Tablet) 650 mg PO Q6H PRN PRN Reason: Pain, Mild (Pain Scale 1-3) Last Admin: 01/16/22 14:32 Dose: 650 mg Documented by: TAMRA Aspirin (Aspirin 325 Mg Tablet) 325 mg PO BID [facility] Celecoxib (Celecoxib 200 Mg Capsule) 200 mg PO BID [facility] Last Admin: 01/17/22 08:56 Dose: 200 mg Documented by: MARIA Docusate Sodium (Docusate Sodium 100 Mg Capsule) 100 mg PO BID [facility] Last Admin: 01/17/22 08:55 Dose: 100 mg Documented by: MARIA Hydromorphone HCl (Hydromorphone Hcl 1 Mg/Ml Syringe) 0.25 mg IVPUSH Q4H PRN; Protocol PRN Reason: Pain, Severe (Pain Scale 7-10) Last Admin: 01/16/22 19:08 Dose: 0.25 mg Documented by: ELIOT Dextrose/Sodium Chloride (D51/2ns) 1,000 mls @ 80 mls/hr IVCONT .[id number] [facility] Last Admin: 01/17/22 06:13 Dose: 80 mls/hr Documented by: PABLO Levothyroxine Sodium (Levothyroxine Sodium 112 Mcg Tablet) 112 mcg PO DAILY@0600 [facility] Last Admin: 01/17/22 06:13 Dose: 112 mcg Documented by: PABLO Ondansetron HCl (Ondansetron Hcl 4 Mg/2 Ml Vial) 4 mg IVPUSH Q8H PRN PRN Reason: Nausea and Vomiting Oxycodone HCl (Oxycodone Hcl Immed Release 5 Mg Tablet) 10 mg PO Q4H PRN PRN Reason: Pain, Moderate (Pain Scale 4-6 Last Admin: 01/17/22 08:55 Dose: 10 mg Documented by: MARIA Oxycodone HCl (Oxycodone Hcl Er 10 Mg Tab.Er.12h) 10 mg PO BID [facility] Last Admin: 01/17/22 08:55 Dose: 10 mg Documented by: MARIA Sodium Chloride (0.9 % Sodium Chloride Flush 3 Ml Syringe) 3 ml IVFLUSH QSHIFT [facility] Last Admin: 01/17/22 08:56 Dose: 3 ml Documented by: AMRIA Labs CBC & Chem 7: 01/17/22 06:12 01/17/22 06:12 Labs: Laboratory Results - last 24 hr 01/16/22 01/17/22 01/17/22 09:35 06:12 06:12 MCV 90.5 MCH 30.6 MCHC 33.8 RDW 12.9 Plt Count 308 MPV 8.5 L Immature Gran % (Auto) 0.6 H Neut % (Auto) 84.9 H Lymph % (Auto) 6.8 L Jennings % (Auto) 7.6 Eos % (Auto) 0.0 Baso % (Auto) 0.1 Lymph # (Auto) 1.0 L Jennings # (Auto) 1.1 Eos # (Auto) 0.0 Baso # (Auto) 0.0 Abs Immat Gran (auto) 0.08 H Absolute Neuts (auto) 11.9 H Absolute Nucleated RBC 0.000 Nucleated RBC % (auto) 0.0 Anion Gap 11 L Estim Creat Clear Calc 90.4 Estimated GFR > 60 Fasting Glucose 127 H Calcium 8.9 D COVID-19 (BOUBACAR) Negative COVID-19 Clin Com See Note Assessment and Plan (1) H/O: HTN (hypertension): Status: Acute Plan 66-year-old woman admitted by Orthopedic surgery and status post right total knee arthroplasty Right total knee arthroplasty Management as per surgical team Pain management Hypertension.? Stable blood pressure Continue hydrochlorothiazide Hypothyroidism Continue levothyroxine DVT prophylaxis as per surgical team Attending Dr. Simon Full code Medical consultation completed. Will sign off Quality Stroke Does the patient have a stroke diagnosis?: No VTE Prior VTE?: No VTE Risk Level:: Surgical - very high VTE Device Contraindication: N/A - Device Ordered VTE Drug Contraindication: N/A - Med Ordered
[2022-01-17 11:02] VITALS: BP 112/69; PULSE 66; RESP 19; TEMP 36; O2SAT 94
--- NOTE | 2022-01-17 11:33 | P.CDIC_ITS ---
CDI Concurrent Query Documentation Clarification: PHYSICIAN'S DOCUMENTATION REQUEST Date of Query: 01/17/22 1135 Patient Name: Roseline Nguyen Admit Date: 01/16/22 Dear Doctor, A review of the medical record indicates additional documentation may be needed. Please review below and update the documentation accordingly. Risk Factors/Clinical Indicators/Treatments BMI 35.1 5' 2 If possible, please provide an associated diagnosis related to the abnormal BMI, such as: For a BMI >= 40: * Overweight * Obesity * Due to excess calories * Drug induced * Due to other cause * Severe or Morbid Obesity * With alveolar hypoventilation * Without alveolar hypoventilation Or: * BMI is not significant * Other (please specify) * Unable to determine Use of terms such as suspected, likely, concern for, or probable (associated with a specific diagnosis that is being evaluated, monitored, or treated as if it exists) are acceptable and can be coded in the inpatient setting, when documented at the time of discharge. Thank you, Surekha Mcdaniel [facility], CDIS Extension: [phone] Please use your independent medical judgment in providing your response. THIS QUERY IS PART OF THE PERMANENT MEDICAL RECORD
--- NOTE | 2022-01-17 11:33 | MHC.CDI.CONC ---
CDI Concurrent Query Documentation Clarification: PHYSICIAN'S DOCUMENTATION REQUEST Date of Query: 01/17/22 1139 Patient Name: Roseline Nguyen Admit Date: 01/16/22 Dear Doctor, A review of the medical record indicates additional documentation may be needed. Please review below and update the documentation accordingly. Risk Factors/Clinical Indicators/Treatments BMI 35.1 5' 2 If possible, please provide an associated diagnosis related to the abnormal BMI, such as: For a BMI >= 40: Overweight Obesity Due to excess calories Drug induced Due to other cause Severe or Morbid Obesity With alveolar hypoventilation Without alveolar hypoventilation Or: BMI is not significant Other (please specify) Unable to determine Use of terms such as suspected, likely, concern for, or probable (associated with a specific diagnosis that is being evaluated, monitored, or treated as if it exists) are acceptable and can be coded in the inpatient setting, when documented at the time of discharge. Thank you, Surekha Mcdaniel [facility], CDIS Extension: [phone] Please use your independent medical judgment in providing your response. THIS QUERY IS PART OF THE PERMANENT MEDICAL RECORD
[2022-01-17] MEDS: Aspirin 325 MG TABLET PO ×2 (13:04→20:25)
--- NOTE | 2022-01-17 13:46 | MHC.CM.PN ---
PATIENT LIVES WITH HER HCP,CLYDE BUSBY. SHE HAS A CANE AND WALKER IN THE HOME. SON ASSISTS WITH ADLS PER CONVERSATION WITH [facility] CARE RN, TAURUS ([phone]) HOME P.T. REFERRAL CAN BE REFERRED OUT TO AN AGENCY. CM TO INFORM TAURUS OF WHICH AGENCY ACCEPTED. SON RAMU ([phone]) IS IN ROOM A TIME OF ASSESSMENT. PATIENT AGREES THAT RAMU CAN ANSWER QUESTIONS ALONG WITH PATIENT. PATIENT IS REQUESTING A TOILET RISER. SURGICAL PA MADE AWARE OF NEED FOR RX. PATIENT HAS BEEN COVID-19 VACCINATED WITH PFIZER 2X. SHE IS UNABLE TO RECALL THE DATES BUT DOES SAY SHE PLANS TO GET HER BOOSTER AFTER THIS ADMISSION. PATIENT IS HOPING TO REMAIN HERE AT [facility] UNTIL Saturday01/19/22. SURGICAL PA MADE AWARE. IMM 01/17 IN CHART
[2022-01-17 15:15] VITALS: BP 121/65; PULSE 60; RESP 18; TEMP 36.3; O2SAT 98
--- NOTE | 2022-01-17 15:42 | MHC.CM.PN ---
PATIENT AND SON (IN ROOM) AWARE [facility] BUT THAT [facility] HAS AGREED TO OFFER HOME P.T. OFFER ACCEPTED [facility] MADE AWARE IN ALLSCRIPTS
[2022-01-17 19:13] VITALS: BP 127/55; PULSE 65; RESP 18; TEMP 37.1; O2SAT 100
[2022-01-17 23:57] VITALS: BP 109/71; PULSE 66; RESP 18; TEMP 36.6; O2SAT 96
[2022-01-18 04:00] VITALS: BP 114/56; PULSE 73; RESP 18; TEMP 36.1; O2SAT 96
[2022-01-18] MEDS: Levothyroxine Sodium 112 MCG TABLET PO (05:50)
[2022-01-18 06:29] LABS: MANUAL DIFF FLAG NO
[2022-01-18 06:33] LABS: Basophils Absolute Auto 0.1 X10*3/uL (0.0-0.2); Basophils Percent Auto 0.7 % (0-2); Eosinophils Absolute Auto 0.2 X10*3/uL (0.0-0.4); Eosinophils Percent Auto 1.6 % (0-4); Hematocrit 34.1 % (37.0-47.0); Imm Gran Abs Auto 0.05 X10*3/uL (0.00-0.03); Imm Gran Pct Auto 0.5 % (0.0-0.4); Lymphocytes Absolute Auto 2.4 X10*3/uL (1.2-4.9); Lymphocytes Percent Auto 23.3 % (20-40); Mean Corpuscular HGB Conc 32.3 g/dl (31.0-35.0); Mean Corpuscular Hemoglobin 29.8 pg (27.0-33.0); Mean Corpuscular Volume 92.4 fL (80.0-98.0); Mean Platelet Volume 8.6 fL (9.4-12.3); Monocytes Absolute Auto 1.3 X10*3/uL (0.1-1.2); Monocytes Percent Auto 12.5 % (2-11); Neutrophils Absolute Auto 6.3 x10*3/uL (2.0-8.3); Neutrophils Percent Auto 61.4 % (45-73); Platelet Count 274 X10*3/uL (160-400); Red Blood Count 3.69 X10*6/uL (4.20-5.50); Red Cell Distribution Width 13.4 % (11.0-16.0); White Blood Count 10.2 X10*3/uL (4.8-10.8)
[2022-01-18] MEDS: Acetaminophen 325 MG TABLET 650 MG PO (06:34)
[2022-01-18 06:44] LABS: Anion Gap 11 (12-20); Blood Urea Nitrogen 15 mg/dL (9-16); Calcium 8.5 mg/dL (8.4-10.2); Carbon Dioxide 28 mmol/L (22-29); Chloride 104 mmol/L (96-108); Creatinine Clr Calc Pharmacy 86.2; Estimated Glomerular Filt Rate > 60; Glucose Fasting 110 mg/dL (60-99); Potassium 3.7 mmol/L (3.3-5.1); Sodium 139 mmol/L (135-145)
[2022-01-18 07:55] VITALS: BP 109/57; PULSE 69; RESP 18; TEMP 36.4; O2SAT 95
[2022-01-18] MEDS: oxyCODONE HCl ER 10 MG TAB.ER.12H PO ×2 (08:34→19:16)
[2022-01-18] MEDS: Celecoxib 200 MG CAPSULE PO ×2 (08:34→19:16)
[2022-01-18] MEDS: Aspirin 325 MG TABLET PO ×2 (08:34→19:16)
[2022-01-18] MEDS: Docusate Sodium 100 MG CAPSULE PO ×2 (08:35→19:16)
--- NOTE | 2022-01-18 08:59 | P.PNOP_ITS ---
Subjective Subjective Date of Service: 01/18/22 Interval history: POD2 s/p RTKA. Patient is resting comfortably in bed. Pain is well managed. No overnight events. No additional complaints. Physical Exam Vital Signs: Vital Signs: Last Vital Signs Temp 97.6 F 01/18/22 07:55 Pulse 69 01/18/22 07:55 Resp 18 01/18/22 07:55 BP 109/57 L 01/18/22 07:55 Pulse Ox 95 01/18/22 07:55 BMI result Body Mass Index 35.1 Const: General: cooperative, healthy appearing and no acute distress Resp: Effort & Inspection: normal respiratory effort and able to speak in complete sentences Cardio: Rate: regular rate Peripheral pulses: Peripheral pulses 2+ throughout GI: Palpation (GI): Soft to palpation Skin: Lesions: no lesions Rashes: no rashes Extrem: Other: Right knee incision site is well approximated. Jolynn intact. No erythema or drainage. New Aquacel dressing applied. NVI. Procedures Date of Service Date of Service: 01/18/22 Progress Note: A&P Assessment and plan (1) Status post total right knee replacement: Status: Acute Assessment and Plan: Continue pain mgmnt Conrinue ASA for dvt ppx Continue PT for RTKA Dispo planning-P.T., pain mgmnt, anticipate D/C tomorrow Fall Risk Details Current Medications: Current Medications Acetaminophen (Acetaminophen 325 Mg Tablet) 650 mg PO Q6H PRN PRN Reason: Pain, Mild (Pain Scale 1-3) Last Admin: 01/18/22 06:34 Dose: 650 mg Documented by: Aspirin (Aspirin 325 Mg Tablet) 325 mg PO BID [facility] Last Admin: 01/18/22 08:34 Dose: 325 mg Documented by: Celecoxib (Celecoxib 200 Mg Capsule) 200 mg PO BID [facility] Last Admin: 01/18/22 08:34 Dose: 200 mg Documented by: Docusate Sodium (Docusate Sodium 100 Mg Capsule) 100 mg PO BID [facility] Last Admin: 01/18/22 08:35 Dose: 100 mg Documented by: Hydromorphone HCl (Hydromorphone Hcl 1 Mg/Ml Syringe) 0.25 mg IVPUSH Q4H PRN; Protocol PRN Reason: Pain, Severe (Pain Scale 7-10) Last Admin: 01/16/22 19:08 Dose: 0.25 mg Documented by: Dextrose/Sodium Chloride (D51/2ns) 1,000 mls @ 80 mls/hr IVCONT .[id number] [facility] Last Admin: 01/17/22 20:25 Dose: 80 mls/hr Documented by: Levothyroxine Sodium (Levothyroxine Sodium 112 Mcg Tablet) 112 mcg PO DAILY@0600 [facility] Last Admin: 01/18/22 05:50 Dose: 112 mcg Documented by: Ondansetron HCl (Ondansetron Hcl 4 Mg/2 Ml Vial) 4 mg IVPUSH Q8H PRN PRN Reason: Nausea and Vomiting Oxycodone HCl (Oxycodone Hcl Immed Release 5 Mg Tablet) 10 mg PO Q4H PRN PRN Reason: Pain, Moderate (Pain Scale 4-6 Last Admin: 01/17/22 16:29 Dose: 10 mg Documented by: Oxycodone HCl (Oxycodone Hcl Er 10 Mg Tab.Er.12h) 10 mg PO BID [facility] Last Admin: 01/18/22 08:34 Dose: 10 mg Documented by: Sodium Chloride (0.9 % Sodium Chloride Flush 3 Ml Syringe) 3 ml IVFLUSH QSHIFT [facility] Last Admin: 01/18/22 08:35 Dose: Not Given Documented by: Time Spent With Patient Time: Total time spent is greater than 50% in coordination of care (as documented) at patient's floor/unit and/or counseling patient: Time with patient: less than 15 minutes Quality Stroke Does the patient have a stroke diagnosis?: No VTE Prior VTE?: No VTE Risk Level:: Surgical - very high VTE Device Contraindication: N/A - Device Ordered VTE Drug Contraindication: N/A - Med Ordered
[2022-01-18 11:10] VITALS: BP 109/57; PULSE 69; O2SAT 95
[2022-01-18 11:32] VITALS: BP 106/59; PULSE 71; RESP 18; TEMP 36.4; O2SAT 95
[2022-01-18] MEDS: oxyCODONE HCl Immed Release 5 MG TABLET 10 MG PO ×2 (11:40→17:48)
[2022-01-18 15:28] VITALS: BP 107/64; PULSE 70; RESP 18; TEMP 36.6; O2SAT 99
[2022-01-18] MEDS: 0.9 % Sodium Chloride Flush 3 ML SYRINGE IVFLUSH ×2 (17:48→19:17)
[2022-01-18 19:42] VITALS: BP 136/59; PULSE 84; RESP 18; TEMP 36.5; O2SAT 99
[2022-01-19] VITALS: BP 102/56; PULSE 82; RESP 14; TEMP 36.3; O2SAT 92
[2022-01-19 04:00] VITALS: BP 109/59; PULSE 75; RESP 14; TEMP 36.3; O2SAT 93
[2022-01-19] MEDS: Levothyroxine Sodium 112 MCG TABLET PO (05:20)
[2022-01-19] MEDS: oxyCODONE HCl Immed Release 5 MG TABLET 10 MG PO ×2 (05:24→09:28)
[2022-01-19 05:45] LABS: MANUAL DIFF FLAG NO
[2022-01-19 05:53] LABS: Basophils Absolute Auto 0.1 X10*3/uL (0.0-0.2); Basophils Percent Auto 0.8 % (0-2); Eosinophils Absolute Auto 0.4 X10*3/uL (0.0-0.4); Eosinophils Percent Auto 4.5 % (0-4); Hematocrit 31.2 % (37.0-47.0); Hemoglobin 10.2 g/dl (12.0-16.0); Imm Gran Abs Auto 0.05 X10*3/uL (0.00-0.03); Imm Gran Pct Auto 0.6 % (0.0-0.4); Lymphocytes Absolute Auto 2.3 X10*3/uL (1.2-4.9); Lymphocytes Percent Auto 26.8 % (20-40); Mean Corpuscular HGB Conc 32.7 g/dl (31.0-35.0); Mean Corpuscular Hemoglobin 30.1 pg (27.0-33.0); Mean Platelet Volume 8.7 fL (9.4-12.3); Monocytes Absolute Auto 0.9 X10*3/uL (0.1-1.2); Neutrophils Absolute Auto 4.9 x10*3/uL (2.0-8.3); Neutrophils Percent Auto 57.3 % (45-73); Platelet Count 288 X10*3/uL (160-400); Red Blood Count 3.39 X10*6/uL (4.20-5.50); Red Cell Distribution Width 13.5 % (11.0-16.0); White Blood Count 8.5 X10*3/uL (4.8-10.8)
[2022-01-19 06:56] LABS: Anion Gap 10 (12-20); Blood Urea Nitrogen 19 mg/dL (9-16); Calcium 8.6 mg/dL (8.4-10.2); Carbon Dioxide 32 mmol/L (22-29); Chloride 103 mmol/L (96-108); Creatinine Clr Calc Pharmacy 81.1; Estimated Glomerular Filt Rate > 60; Glucose Fasting 105 mg/dL (60-99); Potassium 3.7 mmol/L (3.3-5.1); Sodium 141 mmol/L (135-145)
[2022-01-19 06:57] VITALS: BP 112/65; PULSE 75; RESP 18; TEMP 36.6; O2SAT 95
--- NOTE | 2022-01-19 08:09 | PM.DS ---
DS: Providers Provider Date of Service: 01/19/22 Date of admission: 01/16/22 13:54 Primary care physician: Ana Cristina Jasso MD Consults: 01/16/22 16:13 Consult to Hospitalist Routine Consulting Provider: Hospitalist Reason For Exam: htn DS: Diagnosis Discharge Diagnosis (1) Status post total right knee replacement: Status: Acute (2) Obesity (BMI 30.0-34.9): Status: Chronic DS: Summary Hospital Course Hospital Course: The patient underwent a successful right total knee rthroplasty, was transferred to PACU and then to the floor to recover. During their stay, their vitals were stable, afebrile at 97.8. Labs were unremarkable, H/H 10.2/31.2. POD 1 she was started on ASA for DVT ppx, they also received PT ervices twice a day. Prior to discharge, their dressing was change, incision clean dry and intact, new Aquacel dressing applied and the plan was to be discharged home with vna Time Spent with Patient Time attestation: Total time spent providing and/or coordinating discharge services: Discharge coordination time: Less than 30 minutes Quality: Stroke Does the patient have a stroke diagnosis?: No Physical Exam Vital Signs: Vital Signs: Last Vital Signs Temp 97.8 F 01/19/22 06:57 Pulse 75 01/19/22 06:57 Resp 18 01/19/22 06:57 BP 112/65 01/19/22 06:57 Pulse Ox 95 01/19/22 06:57 BMI result Body Mass Index 35.1 Const: General: cooperative, healthy appearing and no acute distress Resp: Effort & Inspection: normal respiratory effort and able to speak in complete sentences Cardio: Rate: regular rate Peripheral pulses: Peripheral pulses 2+ throughout GI: Palpation (GI): Soft to palpation Skin: General skin exam: no rashes or lesions noted Extrem: Other: incision clean dry and intact. [place] intact. No erythema or joint effusion. Calf supple nontender. Neurovascularly intact. DS: Data Data Completed and Pending Completed studies during hospitalization [Text1]: Pending at discharge 01/16/22 13:11 Surgical [PTH] Routine Labs on day of discharge: Laboratory Results - last 24 hr 01/19/22 01/19/22 05:10 05:10 WBC 8.5 RBC 3.39 L Hgb 10.2 L Hct 31.2 L MCV 92.0 MCH 30.1 MCHC 32.7 RDW 13.5 Plt Count 288 MPV 8.7 L Immature Gran % (Auto) 0.6 H Neut % (Auto) 57.3 Lymph % (Auto) 26.8 [place] % (Auto) 10.0 Eos % (Auto) 4.5 H Baso % (Auto) 0.8 Lymph # (Auto) 2.3 [place] # (Auto) 0.9 Eos # (Auto) 0.4 Baso # (Auto) 0.1 Abs Immat Gran (auto) 0.05 H Absolute Neuts (auto) 4.9 Absolute Nucleated RBC 0.000 Nucleated RBC % (auto) 0.0 Sodium 141 Potassium 3.7 Chloride 103 Carbon Dioxide 32 H Anion Gap 10 L BUN 19 H Creatinine 0.68 Estim Creat Clear Calc 81.1 Estimated GFR > 60 Fasting Glucose 105 H Calcium 8.6 Discharge Plan Discharge Patient Disposition: Home Health Service Discharge Diagnosis: Status post right TKA Referrals: Ana Cristina Zhang MD [Primary Care Provider] - 1 Week Elida Gomez PA-C [Physician Chair Car Driver] - 1 Week (02/01/2022 at 01:30) Discharge Medications: New acetaminophen 325 mg Tablet 650 mg PO Q6H PRN (Reason: Pain, Mild (Pain Scale 1-3)) 30 Days Qty: 240 0RF celecoxib 200 mg Capsule 200 mg PO BID 30 Days Qty: 60 0RF aspirin 325 mg Tablet 325 mg PO BID 42 Days Qty: 84 0RF docusate sodium 100 mg Capsule 100 mg PO BID 30 Days Qty: 60 0RF oxycodone 5 mg Tablet 10 mg PO Q4H PRN (Reason: Pain, Moderate (Pain Scale 4-6) 7 Days Qty: 42 0RF Continued levothyroxine [Synthroid] 112 mcg Tablet 112 mcg PO DAILY 0RF cholecalciferol (vitamin D3) [Vitamin D3] 25 mcg (1,000 unit) Capsule 25 mcg PO DAILY 0RF hydrochlorothiazide 12.5 mg tablet 18.75 mg PO DAILY 0RF Rx Instructions: 1.5 TABS Discontinued ibuprofen 800 mg tablet 800 mg PO Q8H PRN (Reason: Pain) 0RF Discharge Orders: Discharge Order (Routine); Ordered 01/19/22 Ordered By: Alla K Melinda Diet: advance to usual diet Activity on Discharge: Use cane or walker Stand Alone Forms: Patient Portal Discharge page Care Plan Goals: Restore function to right knee Health Concerns: None Plan of Treatment: Physical Therapy for ROM 0-120, quad strength, gait training. Use walker for ambulation Limit stair climbing, No shower, No tub bath, No driving Continue anticoagulant Keep Aquacel dressing clean, dry and intact. Follow up with orthopedics in 2 weeks Assessment: Stable for discharge
--- NOTE | 2022-01-19 08:11 | P.F2F_ITS ---
Service Date Service Date: 01/19/22 Encounter Date of encounter: 01/19/22 Reasons for Services Signs and symptoms assessed: right knee pain , swelling, diff with ambulation Reason for physical therapy: home safety and mobility, therapeutic exercises, restore joint function, gait/transfer training, ADL training and energy conservation Reason for occupational therapy: home safety and mobility, therapeutic exercises, restore joint function, gait/transfer training, ADL training and energy conservation Overseeing Care: Chad Davidson Homebound: Leaving the home is medically contraindicated at this time without the asist of a device and/or another person due th the listed conditions above and below. Reason homebound: unsteady gait / fall risk, pain with ambulation, poor balance / fall risk and unable to drive Homebound supporting statement: Pt. is considered home bound due to recent surgery. Unable to drive, poor balance, poor gait mechanics. Certification: Based on the above findings, I certify that this patient is confined to the home and needs intermittent senior living care, physical therapy and/or speech therapy, or continues to need occupational therapy. The patient is under my care, and I have initiated the establishment of the plan of care. The patient will be followed by a physician who will periodically review the plan of care.
[2022-01-19] MEDS: oxyCODONE HCl ER 10 MG TAB.ER.12H PO (08:18)
[2022-01-19] MEDS: Aspirin 325 MG TABLET PO (08:18)
[2022-01-19] MEDS: Celecoxib 200 MG CAPSULE PO (08:18)
[2022-01-19] MEDS: 0.9 % Sodium Chloride Flush 3 ML SYRINGE IVFLUSH (08:19)
[2022-01-19] MEDS: Docusate Sodium 100 MG CAPSULE PO (08:19)
--- NOTE | 2022-01-19 09:49 | MHC.CM.PN ---
nurse disease case manager note electronic medical record reviewed along with case disucssed with staff nurse , met with patient and son (whom speaks eng) with [facility] [place] interperter . both aware and accepting of discharge home today discharge plan home today with comfor caregivers vna for home physical therapy pcp ekta masters patient instructed to call for post hospitla follow up orthopedic surhical pa appt per discharge instructions transportation patient wsnts her son to [facility] her home and son is in agreement medicare imm signed 01/17/22
[2022-01-19 10:01] VITALS: BP 112/65; PULSE 75; O2SAT 95
== END 2022-01-19 10:36 | disposition home health service (06) | DRG 470 ==
LOC: HO.SSSA 13:56 → HO.S3 15:40
PROVIDERS: Nurse Practitioner; Physician Assistant; Admitting Provider Orthopaedic Surgery; PCP Internal Medicine; Visit Provider Orthopaedic Surgery
PROC: 0SRC0JA Replacement of Right Knee Joint with Synthetic Substitute, Uncemented, Open Approach (ICD-10-PCS; CPT 27447; principal; 2022-01-16 11:30)
DX: M17.11 Unilateral primary osteoarthritis, right knee (principal); I10 Essential (primary) hypertension; E66.9 Obesity, unspecified; Z68.35 Body mass index [BMI] 35.0-35.9, adult; E03.9 Hypothyroidism, unspecified; Z20.822 Contact with and (suspected) exposure to COVID-19; Z79.890 Hormone replacement therapy; Z79.899 Other long term (current) drug therapy
CPT/HCPCS: 36415; 73560; 80048; 85025; 86850; 86900; 86901; 87635; 87640; 87641; 88305; 88311; 93005; 97110; 97116; 97162; 97530; C1776; J1100; J1170; J2250; J3370

== ENCOUNTER 2022-02-01 12:27 | Outpatient (RCR) | payer OTHER, SELFPAY ==
--- NOTE | 2022-02-01 15:30 | MHC.PT.EP ---
[facility] [place] Office [place] Office [place] Office [address] Diamond Garcia [address] [phone] F: [phone] F: [phone] F: [phone] F: [phone] Physical Therapy Plan of Care Date of Evaluation: Date of Surgery: 01/17/22 Diagnosis: S/P Rt TKA Assessment: 72 YO FEMALE REF TO PT S/P Rt TKR ON 12/27/21- SHE RESIDES W HER SPOUSE IN A MOBILE HOME AND IS CURRENTLY AMB W A W/WALKER- Pt AND HER SPOUSE NOTE SHE HAS BEEN WITHOUT PAIN MEDS x 2 DAYS AND SHE HAS DECR TOLR TO ACTIVITY AND EXER THIS DATE (PAIN MEDS ADDRESSED BY ORTHO). OBJECTIVE FINDINGS: LIMITED AROM Rt KNEE, TIGHT PSOAS JESUSITA AND DECR ANKLE DF JESUSITA; DECR STRENGTH IN PROX / LUMBOPELVIC AND Rt LE, POST-OP PAIN IN RIGHT KNEE ,AND HEALING ANT Rt KNEE INCISION. FUNCTIONALLY, Pt IS AMB W A W/WALKER- SHE HAS COMPENSATORY GAIT, MODIFIED STAIR MGMT, DECR STANDING, SLEEPING, AND DECR KENDRICK TO ADLs REQ Rt KNEE FLEX. Pt IS A VERY GOOD PT CANDIDATE TO GUIDE HER IN HER POST-OP TKR COURSE, ADDRESSING THE ABOVE FINDINGS, PAIN MGMT, AND MAXIMIZING FUNCTIONAL INDEPENDENCE. Frequency and Duration: The patient will be seen 2 x WK x 5 WKS Short Term Goals: Pt DEMON PROPER QUAD SET IN 1 WK Pt'S rT KNEE PAIN DECREASED TO 2-3/10 IN 2 WKS Pt DEMON WFL AROM HIP EXT AND ANKLE DF/PF AND AROM Rt KNEE 0* TO 120* IN 3 WKS Pt DEMO IMPROVED GAIT MECH W LEAST RESTRICTIVE AD ON LEVEL GROUND AND STAIRS IN 2 WKS Pt INDEP W SCAR MOBILITY Rt ANT KNEE, APPROPRIATE, IN 3 WKS Long-Term Goals: Pt INDEP W HEP PROGRESSION AND SELF-SX MGMT STRATEGIES IN 5 WKS Pt RESUME REG ADLs EVIDENT W IMPROVED LEFI SCORE BY 8-10 POINTS (AT EVAL ) IN 5 WKS Pt INCR Rt LE STRENGTH BY 1 GRADE IN 5 WKS Treatment Plan: Modalities to reduce pain, spasms and effusion. Manual therapy to restore motion and function. Therapeutic exercise to improve strength and flexibility. Neuromuscular re-education for posture and balance. Therapeutic activities to return to functional activities of daily living. Electronically signed by: Jennifer Guillen PT Please sign and return to therapist. Thank you for your referral.
--- NOTE | 2022-02-22 08:48 | MHC.PT.EP ---
[facility] [place] Office [place] Office [place] Office [address] Diamond Garcia [address] [phone] F: [phone] F: [phone] F: [phone] F: [phone] Physical Therapy Plan of Care Date of Evaluation: Date of Surgery: 01/17/22 Diagnosis: S/P Rt TKA Assessment: 72 YO FEMALE REF TO PT S/P Rt TKR ON 12/27/21- SHE RESIDES W HER SPOUSE IN A MOBILE HOME AND IS CURRENTLY AMB W A W/WALKER- Pt AND HER SPOUSE NOTE SHE HAS BEEN WITHOUT PAIN MEDS x 2 DAYS AND SHE HAS DECR TOLR TO ACTIVITY AND EXER THIS DATE (PAIN MEDS ADDRESSED BY ORTHO). OBJECTIVE FINDINGS: LIMITED AROM Rt KNEE, TIGHT PSOAS JESUSITA AND DECR ANKLE DF JESUSITA; DECR STRENGTH IN PROX / LUMBOPELVIC AND Rt LE, POST-OP PAIN IN RIGHT KNEE ,AND HEALING ANT Rt KNEE INCISION. FUNCTIONALLY, Pt IS AMB W A W/WALKER- SHE HAS COMPENSATORY GAIT, MODIFIED STAIR MGMT, DECR STANDING, SLEEPING, AND DECR KENDRICK TO ADLs REQ Rt KNEE FLEX. Pt IS A VERY GOOD PT CANDIDATE TO GUIDE HER IN HER POST-OP TKR COURSE, ADDRESSING THE ABOVE FINDINGS, PAIN MGMT, AND MAXIMIZING FUNCTIONAL INDEPENDENCE. Frequency and Duration: The patient will be seen 2 x WK x 5 WKS Short Term Goals: Pt DEMON PROPER QUAD SET IN 1 WK Pt'S rT KNEE PAIN DECREASED TO 2-3/10 IN 2 WKS Pt DEMON WFL AROM HIP EXT AND ANKLE DF/PF AND AROM Rt KNEE 0* TO 120* IN 3 WKS Pt DEMO IMPROVED GAIT MECH W LEAST RESTRICTIVE AD ON LEVEL GROUND AND STAIRS IN 2 WKS Pt INDEP W SCAR MOBILITY Rt ANT KNEE, APPROPRIATE, IN 3 WKS Alf Goals: Pt INDEP W HEP PROGRESSION AND SELF-SX MGMT STRATEGIES IN 5 WKS Pt RESUME REG ADLs EVIDENT W IMPROVED LEFI SCORE BY 8-10 POINTS (AT EVAL ) IN 5 WKS Pt INCR Rt LE STRENGTH BY 1 GRADE IN 5 WKS Treatment Plan: Modalities to reduce pain, spasms and effusion. Manual therapy to restore motion and function. Therapeutic exercise to improve strength and flexibility. Neuromuscular re-education for posture and balance. Therapeutic activities to return to functional activities of daily living. Electronically signed by: Jennifer Guillen PT Please sign and return to therapist. Thank you for your referral.
--- NOTE | 2022-03-10 07:15 | MHC.PT.DC ---
[facility] [place] Office [place] Office [place] Office [address] Diamond Garcia [address] [phone] F: [phone] F: [phone] F: [phone] F: [phone] Physical Therapy Discharge Report Diagnosis: S/P Rt TKA Date of Surgery: 01/17/22 Date of Evaluation: 02/01/22 Date of Discharge: 03/09/22 Treatments to Date: 1 Cancellations to Date: No Shows to Date: 3 Discharge Status: Patient Elected to Stop Visit Non-compliance Discharge Summary: Pt HAS NOT ATTENDED SCHEDULED PT APPTS, DESPITE EDUC -SHE HAS NOT MET PT GOALS. HER INITIAL ASSESSMENT 72 YO FEMALE REF TO PT S/P Rt TKR ON 12/27/21- SHE RESIDES W HER SPOUSE IN A MOBILE HOME AND IS CURRENTLY AMB W A W/WALKER- Pt AND HER SPOUSE NOTE SHE HAS BEEN WITHOUT PAIN MEDS x 2 DAYS AND SHE HAS DECR TOLR TO ACTIVITY AND EXER THIS DATE (PAIN MEDS ADDRESSED BY ORTHO). OBJECTIVE FINDINGS: LIMITED AROM Rt KNEE, TIGHT PSOAS JESUSITA AND DECR ANKLE DF JESUSITA; DECR STRENGTH IN PROX / LUMBOPELVIC AND Rt LE, POST-OP PAIN IN RIGHT KNEE ,AND HEALING ANT Rt KNEE INCISION. FUNCTIONALLY, Pt IS AMB W A W/WALKER- SHE HAS COMPENSATORY GAIT, MODIFIED STAIR MGMT, DECR STANDING, SLEEPING, AND DECR KENDRICK TO ADLs REQ Rt KNEE FLEX. Pt IS A VERY GOOD PT CANDIDATE TO GUIDE HER IN HER POST-OP TKR COURSE, ADDRESSING THE ABOVE FINDINGS, PAIN MGMT, AND MAXIMIZING FUNCTIONAL INDEPENDENCE. Electronically signed by: Jennifer Guillen,PT Please sign and return to therapist. Thank you for your referral.
== END 2022-03-09 07:16 | disposition home or self-care (01) ==
LOC: HO.PT 12:27
PROVIDERS: Visit Provider Physician Assistant
DX: M17.11 Unilateral primary osteoarthritis, right knee (principal)
CPT/HCPCS: 97110; 97161

== ENCOUNTER → 2022-02-01 13:19 | Outpatient (BNVA) | payer MEDICARE, SELFPAY | PROVIDERS: PCP Internal Medicine; Visit Provider Physician Assistant | DX: Z47.1 Aftercare following joint replacement surgery (principal); Z48.02 Encounter for removal of sutures; Z96.651 Presence of right artificial knee joint | CPT/HCPCS: 99212 ==

== ENCOUNTER 2022-02-01 17:21 | Emergency (ER) | payer MEDICARE, SELFPAY ==
[2022-02-01 17:27] VITALS: BP 139/88; PULSE 90; RESP 16; O2SAT 98; BMI 37.9
--- NOTE | 2022-02-01 17:51 | ED.ALLEREA ---
HPI - Allergic Reaction General Chief complaint: Allergic Reaction Stated complaint: Allergic Reaction Time Seen by Provider: 02/01/22 17:22 Source: patient, family, EMS and diplomatic interpreter/translator Mode of arrival: EMS Limitations: language barrier History of Present Illness HPI narrative: 66-year-old female who is 2 weeks postop for right total knee here with reports of rash to the body and to the face for the last 2-3 days. Patient tells me she was discharged on Celebrex, full aspirin, Colace, Tylenol, and oxycodone 5 mg. She followed up today with the surgeon for postop visit and had her juliette removed. She reported the rash to staff there. The recommended discontinuing with pain medications the patient is unsure which 1. A new prescription was sent to [facility]. The patient tells me when they got there the pharmacy was closed. They noticed increased rash which prompted a 911 call. Patient denies any vomiting, diarrhea, abdominal cramping, difficulty breathing or swallowing. She had a previous allergic reaction to the patient believes his oxycodone 4 years ago after another knee procedure. She does feel like when she takes oxycodone the rash worsens. Related Data Home Medications Medication Instructions Recorded Confirmed cholecalciferol (vitamin D3) 25 25 mcg PO DAILY 01/04/22 01/04/22 mcg (1,000 unit) capsule (Vitamin D3) levothyroxine 112 mcg tablet 112 mcg PO DAILY 01/04/22 01/04/22 (Synthroid) hydrochlorothiazide 12.5 mg tablet 18.75 mg PO DAILY 01/12/22 01/16/22 Previous Rx's Medication Instructions Recorded acetaminophen 325 mg tablet 650 mg PO Q6H PRN 30 Days #240 tab 01/19/22 aspirin 325 mg tablet 325 mg PO BID 42 Days #84 tab 01/19/22 celecoxib 200 mg capsule 200 mg PO BID 30 Days #60 cap 01/19/22 docusate sodium 100 mg capsule 100 mg PO BID 30 Days #60 cap 01/19/22 oxycodone 5 mg tablet 10 mg PO Q4H PRN 7 Days #42 tab 01/19/22 diphenhydramine HCl 25 mg capsule 25 mg PO QID PRN #30 cap 02/01/22 (Benadryl) hydrocodone 5 mg-acetaminophen 325 1 tab PO Q6H PRN 7 Days #28 tab 02/01/22 mg tablet hydrocortisone 2.5 % topical cream 1 appl TOPICAL QID PRN #30 g 02/01/22 hydromorphone 2 mg tablet 1 mg PO Q6H PRN #5 tab 02/01/22 (Dilaudid) hydroxyzine HCl 25 mg tablet 25 mg PO BEDTIME 14 Days #14 tab 02/01/22 prednisone 20 mg tablet 40 mg PO DAILY #8 tab 02/01/22 Allergies Allergy/AdvReac Type Severity Reaction Status Date / Time No Known Allergies Allergy Verified 01/16/22 17:03 Review of Systems Review of Systems: Yes all other systems are reviewed and are negative Constitutional: Constitutional: Reports no additional constitutional complaints, Denies body ache(s), Denies chills, Denies fever(s), Denies headache(s) and Denies weakness Eyes: Eyes: Reports no additional eye complaints and Denies change in vision ENT: Reports system reviewed and no additional complaints, except as documented, Denies dizziness, Denies headache(s), Denies nasal congestion, Denies nasal discharge and Denies neck pain Cardiovascular: Cardiovascular: Reports no additional cardiovascular complaints, Denies chest pain, Denies leg edema and Denies dyspnea Respiratory: Respiratory: Reports no additional respiratory complaints, Denies cough and Denies dyspnea Gastrointestinal: Gastrointestinal: Reports no additional gastrointestinal complaints, Denies abdominal pain, Denies diarrhea, Denies nausea and Denies vomiting Genitourinary: Genitourinary: Reports no additional female genitourinary complaints and Denies urinary incontinence Musculoskeletal: Musculoskeletal: Reports no additional musculoskeletal complaints, Denies back pain, Denies arthralgias, Denies joint swelling, Denies neck pain, Denies numbness and Denies tingling Integumentary/Breasts: Skin/Breast: Reports system reviewed and no additional complaints, except as docu and Reports rash Neurologic: Reports system reviewed and no additional complaints, except as documented, Denies dizziness, Denies headache(s), Denies numbness, Denies tingling and Denies weakness PMFSH Past Medical History Attestation statement: The following information was validated with the patient. Source: old records reviewed and nursing notes reviewed Medical History Chronic constipation Colon adenomas COVID-19 vaccine series completed Elevated cholesterol H/O: HTN (hypertension) HTN (hypertension) Hypothyroid Osteoarthritis Surgical History H/O colonoscopy History of total left knee replacement Hx laparoscopic cholecystectomy Hx of cataract surgery Family History Family History Sister Cancer Social History Social History Household Members: Family Housing: Apartment Are you a primary health care legal assistant to a significant other at home: No Do you presently have visiting nurse or other home services: Yes (son assembly leader) Alcohol intake: never Patient Tobacco Use Status: Never used Tobacco Advance Directives: Yes Advance Directives on File: Yes Advance Directives Date on File: 01/22/22 service: No Current occupational status: disabled Physical Exam ED Vital Signs: Vital Signs - 24 hr 02/01/22 17:27 Pulse Rate 90 Respiratory Rate 16 Blood Pressure 139/88 BMI result Body Mass Index 37.9 Const General: cooperative, healthy appearing, comfortable and no acute distress Orientation/consciousness: patient oriented x3 Limitations: language barrier HENMT Other: No stridor Head: Yes normal to inspection Ears: hearing grossly normal bilaterally General nose exam: Normal external nose present Nose image: 1. Single urticarial lesion Mouth: Normal oral and palatal mucosa present and tongue normal Teeth and gingiva: dentition normal Throat: Yes posterior oropharynx normal, Yes tonsils normal and Yes uvula midline Eyes General: appearance normal, both eyes and all related structures Pupils: Equal, round and reactive pupils present Neck Neck: Yes normal visual inspection, Yes full ROM, Yes no lymphadenopathy and Yes no meningeal signs Chest Chest palpation & inspection: normal inspection of the chest Resp Effort & Inspection: normal respiratory effort Auscultation: clear to auscultation bilaterally Cardio Rate: regular rate Rhythm: regular rhythm Peripheral pulses: Peripheral pulses 2+ throughout GI Inspection: Yes normal to inspection Palpation (GI): Soft to palpation and nontender Back/Spine/Pelvis Thoracic/Lumbar Spine: thoracic and lumbar spine normal to inspection Skin Other: Urticarial rash noted to the upper and lower extremities Neuro General: patient oriented x3, moves all extremities, no meningeal signs and Unable to assess gait Cranial nerves: Yes Equal, round and reactive pupils present Cognition (Neuro): normal cognition Gait exam (Neuro): Unable to assess gait Extrem General: Yes normal to inspection, Yes no pedal edema and Yes no calf tenderness Course Course Course Narrative: 66-year-old female here with urticarial rash over the extremities with a single lesion on the face. ?oxycodone however multiple other potential causes (NSAID, ASA). And no evidence of angioedema or difficulty breathing or swallowing. Will give IV steroids, Pepcid, Benadryl. Patient is complaining of pain in the right knee. She is hesitant to take oxycodone as she believes this may be causing her allergic reaction. Will give oral Dilaudid and reassess. 1900-patient has improvement overall symptoms. Her rash has improved as well as the lesion on her face. Will discontinue oxycodone. give small supply of dilaudid as patient tolerated well air in the emergency department. Recommend patient follow-up with her orthopedic and primary care doctor. Reviewed worrisome signs and symptoms of when to return to the emergency department. Comfortable discharge home. MDM - Allergic Reaction Differential Diagnosis Differential diagnosis: Likely allergic reaction Medical Records Attestation: I reviewed the patient's medical records. Lab Data Attestation: I reviewed the patient's lab results. Discharge Plan Discharge Clinical Impression: Allergic reaction Patient Disposition: Home, Self-Care Instructions: General Allergic Reaction (ED) Additional Instructions: Start the prednisone tomorrow Take Benadryl as needed No more oxycodone Use the Dilaudid as needed Follow-up with Orthopedics Prescriptions: New diphenhydramine HCl [Benadryl] 25 mg capsule 25 mg PO QID PRN (Reason: allergy symptoms) Qty: 30 0RF hydrocortisone 2.5 % cream 1 appl topical QID PRN (Reason: rash) Qty: 30 0RF prednisone 20 mg tablet 40 mg PO DAILY Qty: 8 0RF hydromorphone [Dilaudid] 2 mg tablet 1 mg PO Q6H PRN (Reason: pain) Qty: 5 0RF No Action levothyroxine [Synthroid] 112 mcg Tablet 112 mcg PO DAILY 0RF cholecalciferol (vitamin D3) [Vitamin D3] 25 mcg (1,000 unit) Capsule 25 mcg PO DAILY 0RF hydrochlorothiazide 12.5 mg tablet 18.75 mg PO DAILY 0RF Rx Instructions: 1.5 TABS acetaminophen 325 mg Tablet 650 mg PO Q6H PRN (Reason: Pain, Mild (Pain Scale 1-3)) 30 Days Qty: 240 0RF celecoxib 200 mg Capsule 200 mg PO BID 30 Days Qty: 60 0RF aspirin 325 mg Tablet 325 mg PO BID 42 Days Qty: 84 0RF docusate sodium 100 mg Capsule 100 mg PO BID 30 Days Qty: 60 0RF oxycodone 5 mg Tablet 10 mg PO Q4H PRN (Reason: Pain, Moderate (Pain Scale 4-6) 7 Days Qty: 42 0RF hydrocodone-acetaminophen 5-325 mg tablet 1 tab PO Q6H PRN (Reason: pain) 7 Days Qty: 28 0RF hydroxyzine HCl 25 mg tablet 25 mg PO BEDTIME 14 Days Qty: 14 0RF Referrals: Ana Cristina Zhang MD [Primary Care Provider] - 1 week Chad Davidson MD [Physician] - 1 week Interventions: ED Discharge Assessment Last Done: 02/01/22 19:50 Discharge Date/Time: 02/01/22 19:55 Print Language: Thai
[2022-02-01] MEDS: methylPREDNISolone Sod Succ 125 MG/2 ML VIAL IVPUSH (18:15)
[2022-02-01] MEDS: Famotidine/PF 20 MG/2 ML VIAL IVPUSH (18:15)
[2022-02-01] MEDS: HYDROmorphone HCl 2 MG TABLET 1 MG PO (18:16)
[2022-02-01] MEDS: diphenhydrAMINE HCL 50 MG/ML VIAL 25 MG IVPUSH (18:18)
== END 2022-02-01 19:55 | disposition home or self-care (01) ==
PROVIDERS: Emergency Provider Emergency Medicine; PCP Internal Medicine
DX: R21 Rash and other nonspecific skin eruption (principal); T40.2X5A Adverse effect of other opioids, initial encounter; Y92.039 Unspecified place in apartment as the place of occurrence of the external cause; M25.561 Pain in right knee; Z96.651 Presence of right artificial knee joint
CPT/HCPCS: 96374; 96375; 99283; 99284; J1200; J2930

== ENCOUNTER 2022-02-03 09:57 | Emergency (ER) | payer MEDICARE, SELFPAY ==
[2022-02-03 10:08] VITALS: BP 130/93; BP 138/80; PULSE 56; PULSE 88; RESP 16; TEMP 37.1; O2SAT 97; O2SAT 99; BMI 34.4
[2022-02-03] MEDS: Famotidine 20 MG TABLET PO (10:50)
[2022-02-03] MEDS: predniSONE 20 MG TABLET 60 MG PO (10:50)
--- NOTE | 2022-02-03 11:00 | ED_ITS ---
HPI - General Adult General Chief complaint: General Medical Stated complaint: SWOLLEN LIP AND FACE Time Seen by Provider: 02/03/22 10:34 History of Present Illness HPI narrative: PATIENT IS A 58-YEAR-OLD FEMALE PRESENTS TODAY WITH HAVING lower lip swelling. Patient was seen here 2 days prior for same. Unknown as to the reason for the lip swelling. Patient is not on any Delfino inhibitors. Unfortunately patient had a misunderstanding just had her prednisone filled but have not been taking his steroids. Patient complaining of swelling continuing. There is no difficulty breathing. There is no difficulty swallowing. There is no change in voice. Patient is from home. Related Data Home Medications Medication Instructions Recorded Confirmed cholecalciferol (vitamin D3) 25 25 mcg PO DAILY 01/04/22 01/04/22 mcg (1,000 unit) capsule (Vitamin D3) levothyroxine 112 mcg tablet 112 mcg PO DAILY 01/04/22 01/04/22 (Synthroid) hydrochlorothiazide 12.5 mg tablet 18.75 mg PO DAILY 01/12/22 01/16/22 Previous Rx's Medication Instructions Recorded acetaminophen 325 mg tablet 650 mg PO Q6H PRN 30 Days #240 tab 01/19/22 aspirin 325 mg tablet 325 mg PO BID 42 Days #84 tab 01/19/22 celecoxib 200 mg capsule 200 mg PO BID 30 Days #60 cap 01/19/22 docusate sodium 100 mg capsule 100 mg PO BID 30 Days #60 cap 01/19/22 oxycodone 5 mg tablet 10 mg PO Q4H PRN 7 Days #42 tab 01/19/22 diphenhydramine HCl 25 mg capsule 25 mg PO QID PRN #30 cap 02/01/22 (Benadryl) hydrocodone 5 mg-acetaminophen 325 1 tab PO Q6H PRN 7 Days #28 tab 02/01/22 mg tablet hydrocortisone 2.5 % topical cream 1 appl TOPICAL QID PRN #30 g 02/01/22 hydromorphone 2 mg tablet 1 mg PO Q6H PRN #5 tab 02/01/22 (Dilaudid) hydroxyzine HCl 25 mg tablet 25 mg PO BEDTIME 14 Days #14 tab 02/01/22 prednisone 20 mg tablet 40 mg PO DAILY #8 tab 02/01/22 Allergies Allergy/AdvReac Type Severity Reaction Status Date / Time No Known Allergies Allergy Verified 01/16/22 17:03 Review of Systems Review of Systems: Positive lower lip swelling Yes all other systems are reviewed and are negative [facility] Past Medical History Attestation statement: The following information was validated with the patient. Source: unable to obtain Medical History Chronic constipation Colon adenomas COVID-19 vaccine series completed Elevated cholesterol H/O: HTN (hypertension) HTN (hypertension) Hypothyroid Osteoarthritis Surgical History H/O colonoscopy History of total left knee replacement Hx laparoscopic cholecystectomy Hx of cataract surgery Family History Family History Sister Cancer Social History Social History Household Members: Family Housing: Apartment Are you a primary complex care nurse practitioner to a significant other at home: No Do you presently have visiting nurse or other home services: Yes (son president financial institution) Alcohol intake: never Patient Tobacco Use Status: Never used Tobacco Advance Directives: Yes Advance Directives on File: Yes Advance Directives Date on File: 01/22/22 service: No Current occupational status: disabled Physical Exam ED Vital Signs: Vital Signs - 24 hr 02/03/22 10:08 02/03/22 11:21 02/03/22 12:16 Temperature 98.8 F 98.6 F 98.6 F Pulse Rate 56 54 51 Respiratory Rate 16 15 16 Blood Pressure 138/80 137/70 135/67 Pulse Oximetry 97 97 95 BMI result Body Mass Index 34.4 Appearance: Alert. Oriented X3. No acute distress. Eyes: Pupils equal, round and reactive to light. ENT: Pharynx normal. Positive lower lip swelling posterior pharynx is normal voice normal Neck: Normal inspection. Neck supple. No lymph nodes noted. No crepitus. Trachea midline CVS: Normal heart rate and rhythm. Pulses normal. Normal S1 and S2 Respiratory: No respiratory distress. Breath sounds normal. No Wheezing. No rales Abdomen: Soft and nontender. No rigidity. No distention. good BS x4 Skin: Skin warm and dry. Normal skin color. Normal skin turgor. Extremities: No lower extremity edema. Neurovascular intact to all extremities. No Lacerations. No Rash Neuro: Oriented X 3. No motor deficit. No sensory deficit. Moving all extermities. No slurred speech Medical Decision Making MDM Narrative Medical decision making narrative: Look through patient's medication she did get the prednisone filled. Unfortunately she did not take any the pills over the last 2 days. Given a dose of prednisone here in emergency department monitor for few hours. Patient in no distress. There is no change in voice. There is no change in swallowing. There is no shortness of breath. Unfortunately patient's lower lip is still swollen. Will have patient be discharged and follow up on an outpatient basis. Discharge Plan Discharge Clinical Impression: Angio-edema Patient Disposition: Home, Self-Care Instructions: Angioedema (ED) Prescriptions: No Action diphenhydramine HCl [Benadryl] 25 mg capsule 25 mg PO QID PRN (Reason: allergy symptoms) Qty: 30 0RF hydrocortisone 2.5 % cream 1 appl topical QID PRN (Reason: rash) Qty: 30 0RF prednisone 20 mg tablet 40 mg PO DAILY Qty: 8 0RF hydromorphone [Dilaudid] 2 mg tablet 1 mg PO Q6H PRN (Reason: pain) Qty: 5 0RF levothyroxine [Synthroid] 112 mcg Tablet 112 mcg PO DAILY 0RF cholecalciferol (vitamin D3) [Vitamin D3] 25 mcg (1,000 unit) Capsule 25 mcg PO DAILY 0RF hydrochlorothiazide 12.5 mg tablet 18.75 mg PO DAILY 0RF Rx Instructions: 1.5 TABS acetaminophen 325 mg Tablet 650 mg PO Q6H PRN (Reason: Pain, Mild (Pain Scale 1-3)) 30 Days Qty: 240 0RF celecoxib 200 mg Capsule 200 mg PO BID 30 Days Qty: 60 0RF aspirin 325 mg Tablet 325 mg PO BID 42 Days Qty: 84 0RF docusate sodium 100 mg Capsule 100 mg PO BID 30 Days Qty: 60 0RF oxycodone 5 mg Tablet 10 mg PO Q4H PRN (Reason: Pain, Moderate (Pain Scale 4-6) 7 Days Qty: 42 0RF hydrocodone-acetaminophen 5-325 mg tablet 1 tab PO Q6H PRN (Reason: pain) 7 Days Qty: 28 0RF hydroxyzine HCl 25 mg tablet 25 mg PO BEDTIME 14 Days Qty: 14 0RF Referrals: Ana Cristina Zhang MD [Primary Care Provider] - 2 days Print Language: Lithuanian
--- NOTE | 2022-02-03 11:01 | PC.NURSE ---
Patient's son at bedside, he brought pt's home medications for reconciliation-pt filled Rx for Prednisone prescribed on 02/01/2022, but she pt did not take prednisone at home.
[2022-02-03 11:21] VITALS: BP 137/70; PULSE 54; RESP 15; TEMP 37; O2SAT 97
--- NOTE | 2022-02-03 11:30 | PC.NURSE ---
Left AC IV site-mild erythema noted under tegaderm dressing d/t sensitivity to tegaderm-no warmth, itchiness-IV site is patent. Will continue to monitor.
[2022-02-03 12:16] VITALS: BP 135/67; PULSE 51; RESP 16; TEMP 37; O2SAT 95
[2022-02-03 15:09] VITALS: BP 121/71; PULSE 56; RESP 16; TEMP 37; O2SAT 94
--- NOTE | 2022-02-03 15:44 | ED.GENADULT ---
HPI - General Adult General Chief complaint: General Medical Stated complaint: SWOLLEN LIP AND FACE Time Seen by Provider: 02/03/22 10:34 Related Data Home Medications Medication Instructions Recorded Confirmed cholecalciferol (vitamin D3) 25 25 mcg PO DAILY 01/04/22 01/04/22 mcg (1,000 unit) capsule (Vitamin D3) levothyroxine 112 mcg tablet 112 mcg PO DAILY 01/04/22 01/04/22 (Synthroid) hydrochlorothiazide 12.5 mg tablet 18.75 mg PO DAILY 01/12/22 01/16/22 Previous Rx's Medication Instructions Recorded acetaminophen 325 mg tablet 650 mg PO Q6H PRN 30 Days #240 tab 01/19/22 aspirin 325 mg tablet 325 mg PO BID 42 Days #84 tab 01/19/22 celecoxib 200 mg capsule 200 mg PO BID 30 Days #60 cap 01/19/22 docusate sodium 100 mg capsule 100 mg PO BID 30 Days #60 cap 01/19/22 oxycodone 5 mg tablet 10 mg PO Q4H PRN 7 Days #42 tab 01/19/22 diphenhydramine HCl 25 mg capsule 25 mg PO QID PRN #30 cap 02/01/22 (Benadryl) hydrocodone 5 mg-acetaminophen 325 1 tab PO Q6H PRN 7 Days #28 tab 02/01/22 mg tablet hydrocortisone 2.5 % topical cream 1 appl TOPICAL QID PRN #30 g 02/01/22 hydromorphone 2 mg tablet 1 mg PO Q6H PRN #5 tab 02/01/22 (Dilaudid) hydroxyzine HCl 25 mg tablet 25 mg PO BEDTIME 14 Days #14 tab 02/01/22 prednisone 20 mg tablet 40 mg PO DAILY #8 tab 02/01/22 Allergies Allergy/AdvReac Type Severity Reaction Status Date / Time No Known Allergies Allergy Verified 01/16/22 17:03 [facility] Past Medical History Medical History Chronic constipation Colon adenomas COVID-19 vaccine series completed Elevated cholesterol H/O: HTN (hypertension) HTN (hypertension) Hypothyroid Osteoarthritis Surgical History H/O colonoscopy History of total left knee replacement Hx laparoscopic cholecystectomy Hx of cataract surgery Family History Family History Sister Cancer Social History Social History Household Members: Family Housing: Apartment Are you a primary insurance healthcare consultant to a significant other at home: No Do you presently have visiting nurse or other home services: 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) Alcohol intake: never Patient Tobacco Use Status: Never used Tobacco Advance Directives: Yes Advance Directives on File: Yes Advance Directives Date on File: 01/22/22 service: No Current occupational status: disabled Physical Exam ED Vital Signs: Vital Signs - 24 hr 02/03/22 10:08 02/03/22 11:21 02/03/22 12:16 Temperature 98.8 F 98.6 F 98.6 F Pulse Rate 56 54 51 Respiratory Rate 16 15 16 Blood Pressure 138/80 137/70 135/67 Pulse Oximetry 97 97 95 02/03/22 15:09 Temperature 98.6 F Pulse Rate 56 Respiratory Rate 16 Blood Pressure 121/71 Pulse Oximetry 94 BMI result Body Mass Index 34.4 Discharge Plan Discharge Clinical Impression: Angio-edema Patient Disposition: Home, Self-Care Instructions: Angioedema (ED) Prescriptions: No Action diphenhydramine HCl [Benadryl] 25 mg capsule 25 mg PO QID PRN (Reason: allergy symptoms) Qty: 30 0RF hydrocortisone 2.5 % cream 1 appl topical QID PRN (Reason: rash) Qty: 30 0RF prednisone 20 mg tablet 40 mg PO DAILY Qty: 8 0RF hydromorphone [Dilaudid] 2 mg tablet 1 mg PO Q6H PRN (Reason: pain) Qty: 5 0RF levothyroxine [Synthroid] 112 mcg Tablet 112 mcg PO DAILY 0RF cholecalciferol (vitamin D3) [Vitamin D3] 25 mcg (1,000 unit) Capsule 25 mcg PO DAILY 0RF hydrochlorothiazide 12.5 mg tablet 18.75 mg PO DAILY 0RF Rx Instructions: 1.5 TABS acetaminophen 325 mg Tablet 650 mg PO Q6H PRN (Reason: Pain, Mild (Pain Scale 1-3)) 30 Days Qty: 240 0RF celecoxib 200 mg Capsule 200 mg PO BID 30 Days Qty: 60 0RF aspirin 325 mg Tablet 325 mg PO BID 42 Days Qty: 84 0RF docusate sodium 100 mg Capsule 100 mg PO BID 30 Days Qty: 60 0RF oxycodone 5 mg Tablet 10 mg PO Q4H PRN (Reason: Pain, Moderate (Pain Scale 4-6) 7 Days Qty: 42 0RF hydrocodone-acetaminophen 5-325 mg tablet 1 tab PO Q6H PRN (Reason: pain) 7 Days Qty: 28 0RF hydroxyzine HCl 25 mg tablet 25 mg PO BEDTIME 14 Days Qty: 14 0RF Referrals: Ana Cristina Zhang MD [Primary Care Provider] - 2 days Interventions: ED Discharge Assessment Last Done: 02/03/22 15:51 Discharge Date/Time: 02/03/22 15:51 Print Language: S[place]
== END 2022-02-03 15:51 | disposition home or self-care (01) ==
PROVIDERS: Emergency Provider Emergency Medicine Emergency Medical Services; PCP Internal Medicine
DX: T78.3XXA Angioneurotic edema, initial encounter (principal)
CPT/HCPCS: 99283; 99284

== ENCOUNTER 2022-02-04 10:00 | Emergency (ER) | payer OTHER, SELFPAY ==
[2022-02-04 10:08] VITALS: BP 122/76; PULSE 82; O2SAT 99
--- NOTE | 2022-02-04 10:13 | ED_ITS ---
HPI - Allergic Reaction General Chief complaint: Allergic Reaction Stated complaint: allergic reaction Time Seen by Provider: 02/04/22 10:07 History of Present Illness HPI narrative: Patient is a 66-year-old female presented today with having itchy rash over to the arm. Was in the emergency department yesterday for swollen lower lip. That has actually improved. Patient denies any chest pain any shortness of breath any dizziness any nausea any vomiting. Today has taken her prednisone. Was given additional 125 of Solu-Medrol BiPAP medics. Also given 50 of Benadryl. Patient denies any fever chills any coughing congestion upper respiratory symptoms. Denies change in speech. No difficulty swallowing. No rash in the mucosal membranes. Patient is from home. No changes in her environment. Related Data Home Medications Medication Instructions Recorded Confirmed cholecalciferol (vitamin D3) 25 25 mcg PO DAILY 01/04/22 01/04/22 mcg (1,000 unit) capsule (Vitamin D3) levothyroxine 112 mcg tablet 112 mcg PO DAILY 01/04/22 01/04/22 (Synthroid) hydrochlorothiazide 12.5 mg tablet 18.75 mg PO DAILY 01/12/22 01/16/22 Previous Rx's Medication Instructions Recorded acetaminophen 325 mg tablet 650 mg PO Q6H PRN 30 Days #240 tab 01/19/22 aspirin 325 mg tablet 325 mg PO BID 42 Days #84 tab 01/19/22 celecoxib 200 mg capsule 200 mg PO BID 30 Days #60 cap 01/19/22 docusate sodium 100 mg capsule 100 mg PO BID 30 Days #60 cap 01/19/22 oxycodone 5 mg tablet 10 mg PO Q4H PRN 7 Days #42 tab 01/19/22 diphenhydramine HCl 25 mg capsule 25 mg PO QID PRN #30 cap 02/01/22 (Benadryl) hydrocodone 5 mg-acetaminophen 325 1 tab PO Q6H PRN 7 Days #28 tab 02/01/22 mg tablet hydrocortisone 2.5 % topical cream 1 appl TOPICAL QID PRN #30 g 02/01/22 hydromorphone 2 mg tablet 1 mg PO Q6H PRN #5 tab 02/01/22 (Dilaudid) hydroxyzine HCl 25 mg tablet 25 mg PO BEDTIME 14 Days #14 tab 02/01/22 prednisone 20 mg tablet 40 mg PO DAILY #8 tab 02/01/22 Allergies Allergy/AdvReac Type Severity Reaction Status Date / Time No Known Allergies Allergy Verified 01/16/22 17:03 Review of Systems Review of Systems: No fever no chills no chest pain or shortness of breath no nausea no vomiting positive extremely pleuritic rash over the arms and over the eye on the right side Yes all other systems are reviewed and are negative PMFSH Past Medical History Attestation statement: The following information was validated with the patient. 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 Oriented X3. No acute distress. Eyes: Pupils equal, round and reactive to light. Positive swelling around the right eye. Sclera was white. Pupils equal reactive to light. ENT: Pharynx normal. Posterior pharynx is normal Neck: Normal inspection. Neck supple. No lymph nodes noted. No crepitus CVS: Normal heart rate and rhythm. Pulses normal. Normal S1 and S2 Respiratory: No respiratory distress. Breath sounds normal. No Wheezing. No rales Abdomen: Soft and nontender. No rigidity. No distention. good BS x4 Skin: You to Carrier like rash over the antecubital fossa and inner arm bradley aterally. Positive swelling over the right eye. All the rashes are blanching. Has an irregular border. And is raise. Extremities: No lower extremity edema. Neurovascular intact to all extremities. No Lacerations. No Rash Neuro: Oriented X 3. No motor deficit. No sensory deficit. Moving all extermities. No slurred speech MDM - Allergic Reaction MDM Narrative Medical decision making narrative: Patient had uric area like rash over the arms and over the eye. There is no mucosal membrane involvement. There has been no change in patient's environment. She is on steroids. Additional steroid was given by paramedics. Will monitor carefully in the emergency department. Interestingly to note patient has swelling to the lower lip yesterday has completely resolved. Patient monitored emergency department for approximately 2 hours. No distress. The rash has subsided somewhat. Will discharge patient home. Continue medication from yesterday Medical Records Attestation: I reviewed the patient's medical records. Lab Data Attestation: I reviewed the patient's lab results. Discharge Plan Discharge Clinical Impression: Allergic reaction, Urticaria Patient Disposition: Home, Self-Care Instructions: Urticaria (ED), General Allergic Reaction (ED) Prescriptions: No Action diphenhydramine HCl [Benadryl] 25 mg capsule 25 mg PO QID PRN (Reason: allergy symptoms) Qty: 30 0RF hydrocortisone 2.5 % cream 1 appl topical QID PRN (Reason: rash) Qty: 30 0RF prednisone 20 mg tablet 40 mg PO DAILY Qty: 8 0RF hydromorphone [Dilaudid] 2 mg tablet 1 mg PO Q6H PRN (Reason: pain) Qty: 5 0RF levothyroxine [Synthroid] 112 mcg Tablet 112 mcg PO DAILY 0RF cholecalciferol (vitamin D3) [Vitamin D3] 25 mcg (1,000 unit) Capsule 25 mcg PO DAILY 0RF hydrochlorothiazide 12.5 mg tablet 18.75 mg PO DAILY 0RF Rx Instructions: 1.5 TABS acetaminophen 325 mg Tablet 650 mg PO Q6H PRN (Reason: Pain, Mild (Pain Scale 1-3)) 30 Days Qty: 240 0RF celecoxib 200 mg Capsule 200 mg PO BID 30 Days Qty: 60 0RF aspirin 325 mg Tablet 325 mg PO BID 42 Days Qty: 84 0RF docusate sodium 100 mg Capsule 100 mg PO BID 30 Days Qty: 60 0RF oxycodone 5 mg Tablet 10 mg PO Q4H PRN (Reason: Pain, Moderate (Pain Scale 4-6) 7 Days Qty: 42 0RF hydrocodone-acetaminophen 5-325 mg tablet 1 tab PO Q6H PRN (Reason: pain) 7 Days Qty: 28 0RF hydroxyzine HCl 25 mg tablet 25 mg PO BEDTIME 14 Days Qty: 14 0RF Referrals: Physician,Unknown J [Primary Care Provider] - 2 days
[2022-02-04 10:14] VITALS: BP 131/79; PULSE 64; RESP 12; TEMP 36.8; O2SAT 96; BMI 5914.2
[2022-02-04] MEDS: Famotidine/PF 20 MG/2 ML VIAL IVPUSH (10:38)
[2022-02-04 12:18] VITALS: BP 123/79; PULSE 63; RESP 15; TEMP 36.9; O2SAT 95
== END 2022-02-04 13:10 | disposition home or self-care (01) ==
LOC: HO.ED 11:09
PROVIDERS: Emergency Provider Emergency Medicine Emergency Medical Services
DX: L50.0 Allergic urticaria (principal)
CPT/HCPCS: 96374; 99282; 99284

== ENCOUNTER 2022-02-05 13:43 | Emergency (ER) | payer OTHER, SELFPAY ==
--- NOTE | 2022-02-05 | ECG_ITS ---
Test Reason : sob Blood Pressure : / mmHG Vent. Rate : 077 BPM Atrial Rate : 077 BPM P-R Int : 148 ms QRS Dur : 096 ms QT Int : 404 ms P-R-T Axes : 000 218 159 degrees QTc Int : 457 ms Suspect limb leads reversal Normal sinus rhythm Right superior axis deviation Pulmonary disease pattern Nonspecific ST and T wave abnormality Abnormal ECG When compared with ECG of 19-DEC-2021 13:59, Questionable change in QRS axis ST now depressed in Lateral leads T wave inversion now evident in Lateral leads Referred By: Generic ED Physician Electronically Signed By:Chas Chauhan
--- NOTE | ~2022-02-05 | XR_ITS ---
EXAMINATION: XR CHEST CLINICAL INFORMATION: Chest pain COMPARISON: Chest 6 or 11/30/2019 TECHNIQUE: 2 views of the chest were obtained. FINDINGS: The lungs are hypoexpanded but clear of acute process. The heart size is borderline normal pulmonary vascularity is normal. There are old healed mid chest right posterior rib fractures. XR/XR chest 2V IMPRESSION: No acute cardiopulmonary process seen.
[2022-02-05 14:03] VITALS: BP 101/62; PULSE 72; O2SAT 99
[2022-02-05 14:36] VITALS: BP 97/57; PULSE 86; RESP 24; TEMP 36; O2SAT 98; BMI 33.6
[2022-02-05] MEDS: LORazepam 1 MG TABLET PO (15:01)
[2022-02-05] MEDS: hydrOXYzine HCL 25 MG TABLET PO (15:01)
[2022-02-05 15:19] LABS: MANUAL DIFF FLAG NO
[2022-02-05 15:20] LABS: Basophils Percent Auto 0.3 % (0-2); Eosinophils Percent Auto 0.1 % (0-4); Hematocrit 38.9 % (37.0-47.0); Hemoglobin 12.5 g/dl (12.0-16.0); Imm Gran Pct Auto 0.8 % (0.0-0.4); Lymphocytes Absolute Auto 2.9 X10*3/uL (1.2-4.9); Lymphocytes Percent Auto 22.7 % (20-40); Mean Corpuscular HGB Conc 32.1 g/dl (31.0-35.0); Mean Corpuscular Hemoglobin 29.3 pg (27.0-33.0); Mean Corpuscular Volume 91.1 fL (80.0-98.0); Mean Platelet Volume 8.1 fL (9.4-12.3); Monocytes Absolute Auto 0.7 X10*3/uL (0.1-1.2); Monocytes Percent Auto 5.8 % (2-11); Neutrophils Percent Auto 70.3 % (45-73); Platelet Count 642 X10*3/uL (160-400); Red Blood Count 4.27 X10*6/uL (4.20-5.50); Red Cell Distribution Width 13.7 % (11.0-16.0); White Blood Count 12.8 X10*3/uL (4.8-10.8)
[2022-02-05 15:34] LABS: Anion Gap 16 (12-20); Blood Urea Nitrogen 26 mg/dL (9-16); Calcium 9.4 mg/dL (8.4-10.2); Carbon Dioxide 24 mmol/L (22-29); Chloride 101 mmol/L (96-108); Creatinine Clr Calc Pharmacy 63.9; Estimated Glomerular Filt Rate > 60; Glucose Random 118 mg/dL (60-115); Sodium 138 mmol/L (135-145)
[2022-02-05 15:39] LABS: Troponin-I High Sensitivity < 3.5 ng/L (<3.5-17.0)
[2022-02-05 18:40] LABS: Erythrocyte Sedimentation Rate 57 MM/HR (0-20)
--- NOTE | 2022-02-05 21:08 | ED_ITS ---
HPI - General Adult General Chief complaint: General Medical Stated complaint: Allergic Reaction Time Seen by Provider: 02/05/22 14:55 Source: patient Mode of arrival: ambulatory History of Present Illness HPI narrative: P.m. in having hives since 02/01 patient is 2 weeks postop R knee surgery and started on oxycodone which she was allergic to about 4 years ago, patient took oxycodone until 02/01 and rash continues getting worse although she is not taking oxycodone now , been here 3 times her highs not getting better started on prednisone and Benadryl still hives are coming back. Patient denies any shortness of breath chest pain palpitation no tongue or lip swelling Related Data Home Medications Medication Instructions Recorded Confirmed cholecalciferol (vitamin D3) 25 25 mcg PO DAILY 01/04/22 01/04/22 mcg (1,000 unit) capsule (Vitamin D3) levothyroxine 112 mcg tablet 112 mcg PO DAILY 01/04/22 01/04/22 (Synthroid) hydrochlorothiazide 12.5 mg tablet 18.75 mg PO DAILY 01/12/22 01/16/22 Previous Rx's Medication Instructions Recorded acetaminophen 325 mg tablet 650 mg PO Q6H PRN 30 Days #240 tab 01/19/22 aspirin 325 mg tablet 325 mg PO BID 42 Days #84 tab 01/19/22 celecoxib 200 mg capsule 200 mg PO BID 30 Days #60 cap 01/19/22 docusate sodium 100 mg capsule 100 mg PO BID 30 Days #60 cap 01/19/22 oxycodone 5 mg tablet 10 mg PO Q4H PRN 7 Days #42 tab 01/19/22 diphenhydramine HCl 25 mg capsule 25 mg PO QID PRN #30 cap 02/01/22 (Benadryl) hydrocodone 5 mg-acetaminophen 325 1 tab PO Q6H PRN 7 Days #28 tab 02/01/22 mg tablet hydrocortisone 2.5 % topical cream 1 appl TOPICAL QID PRN #30 g 02/01/22 hydromorphone 2 mg tablet 1 mg PO Q6H PRN #5 tab 02/01/22 (Dilaudid) hydroxyzine HCl 25 mg tablet 25 mg PO BEDTIME 14 Days #14 tab 02/01/22 prednisone 20 mg tablet 40 mg PO DAILY #8 tab 02/01/22 diphenhydramine HCl 25 mg capsule 25 mg PO Q6H PRN #20 cap 02/05/22 (Benadryl) famotidine 20 mg tablet (Pepcid) 20 mg PO BID #20 tab 02/05/22 hydrocodone 5 mg-acetaminophen 325 1 tab PO Q6H PRN #20 tab 02/05/22 mg tablet prednisone 20 mg tablet 40 mg PO DAILY #10 tab 02/05/22 Allergies Allergy/AdvReac Type Severity Reaction Status Date / Time No Known Allergies Allergy Verified 01/16/22 17:03 Review of Systems Review of Systems: Yes all other systems are reviewed and are negative FOR[facility]LY [facility], [facility] Past Medical History Medical History Chronic constipation Colon adenomas COVID-19 vaccine series completed Elevated cholesterol H/O: HTN (hypertension) HTN (hypertension) Hypothyroid Osteoarthritis Surgical History H/O colonoscopy History of total left knee replacement Hx laparoscopic cholecystectomy Hx of cataract surgery Family History Family History Sister Cancer Social History Social History Household Members: Family Housing: Apartment Are you a primary personal caregiver to a significant other at home: No Do you presently have visiting nurse 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 Oriented X3. No acute distress. ENT: Pharynx normal. Oral Mucosa moist no stridor done and lips normal Neck: Normal inspection. Neck supple. CVS: Normal heart rate and rhythm. Pulses normal. Respiratory: No respiratory distress. Equal air entry bilateral, no wheezing/rales/rhonchi Abdomen: Soft and nontender. Skin: Skin warm and dry. Normal skin color. Normal skin turgor. Extremities: No lower extremity edema. No calf tenderness hives all over her upper extremities Neuro: Oriented X 3. Medical Decision Making MDM Narrative Medical decision making narrative: Patient was taking Celebrex and oxycodone like she allergic to sulfur patient improved during stay in the hospital advised to stop of Celebrex along with oxycodone Lab Data Lab results reviewed: Yes I reviewed the patient's lab results. Result diagrams: 02/05/22 15:14 02/05/22 15:14 Labs: Lab Results 02/05/22 02/05/22 02/05/22 Range/Units 15:14 15:14 15:14 WBC 12.8 H (4.8-10.8) X10*3/uL RBC 4.27 D (4.20-5.50) X10*6/uL Hgb 12.5 D (12.0-16.0) g/dl Hct 38.9 D (37.0-47.0) % MCV 91.1 (80.0-98.0) fL MCH 29.3 (27.0-33.0) pg MCHC 32.1 (31.0-35.0) g/dl RDW 13.7 (11.0-16.0) % Plt Count 642 H D (160-400) X10*3/uL MPV 8.1 L (9.4-12.3) fL Immature Gran % (Auto) 0.8 H (0.0-0.4) % Neut % (Auto) 70.3 (45-73) % Lymph % (Auto) 22.7 (20-40) % [place] % (Auto) 5.8 (2-11) % Eos % (Auto) 0.1 (0-4) % Baso % (Auto) 0.3 (0-2) % Lymph # (Auto) 2.9 (1.2-4.9) X10*3/uL [place] # (Auto) 0.7 (0.1-1.2) X10*3/uL Eos # (Auto) 0.0 (0.0-0.4) X10*3/uL Baso # (Auto) 0.0 (0.0-0.2) X10*3/uL Abs Immat Gran (auto) 0.10 H (0.00-0.03) X10*3/uL Absolute Neuts (auto) 9.0 H (2.0-8.3) x10*3/uL Absolute Nucleated RBC 0.000 (0.0-0.012) X10*3/uL Nucleated RBC % (auto) 0.0 (0.0-0.2) /100WBC ESR 57 H (0-20) MM/HR Sodium 138 (135-145) mmol/L Potassium 3.0 L (3.3-5.1) mmol/L Chloride 101 (96-108) mmol/L Carbon Dioxide 24 (22-29) mmol/L Anion Gap 16 (12-20) BUN 26 H (9-16) mg/dL Creatinine 0.81 (0.5-1.4) mg/dL Estim Creat Clear Calc 63.9 Estimated GFR > 60 Random Glucose 118 H (60-115) mg/dL Calcium 9.4 D (8.4-10.2) mg/dL Troponin I High Sens (<3.5-17.0) ng/L // Range/Units 15:14 WBC (4.8-10.8) X10*3/uL RBC (4.20-5.50) X10*6/uL Hgb (12.0-16.0) g/dl Hct (37.0-47.0) % MCV (80.0-98.0) fL MCH (27.0-33.0) pg MCHC (31.0-35.0) g/dl RDW (11.0-16.0) % Plt Count (160-400) X10*3/uL MPV (9.4-12.3) fL Immature Gran % (Auto) (0.0-0.4) % Neut % (Auto) (45-73) % Lymph % (Auto) (20-40) % [place] % (Auto) (2-11) % Eos % (Auto) (0-4) % Baso % (Auto) (0-2) % Lymph # (Auto) (1.2-4.9) X10*3/uL [place] # (Auto) (0.1-1.2) X10*3/uL Eos # (Auto) (0.0-0.4) X10*3/uL Baso # (Auto) (0.0-0.2) X10*3/uL Abs Immat Gran (auto) (0.00-0.03) X10*3/uL Absolute Neuts (auto) (2.0-8.3) x10*3/uL Absolute Nucleated RBC (0.0-0.012) X10*3/uL Nucleated RBC % (auto) (0.0-0.2) /100WBC ESR (0-20) MM/HR Sodium (135-145) mmol/L Potassium (3.3-5.1) mmol/L Chloride (96-108) mmol/L Carbon Dioxide (22-29) mmol/L Anion Gap (12-20) BUN (9-16) mg/dL Creatinine (0.5-1.4) mg/dL Estim Creat Clear Calc Estimated GFR Random Glucose (60-115) mg/dL Calcium (8.4-10.2) mg/dL Troponin I High Sens < 3.5 (<3.5-17.0) ng/L Discharge Plan Discharge Clinical Impression: Allergic reaction caused by a drug Patient Disposition: Home, Self-Care Additional Instructions: you Likely allergic to Celebrex/sulfa Also possible allergic to oxycodone Do not take oxycodone and celecoxib (Celebrex) Take Benadryl 1-2 capsules every 6 hours as needed for allergic reaction Prednisone and Pepcid as prescribed Follow with PCP if not better Prescriptions: New prednisone 20 mg tablet 40 mg PO DAILY Qty: 10 0RF famotidine [Pepcid] 20 mg tablet 20 mg PO BID Qty: 20 0RF diphenhydramine HCl [Benadryl] 25 mg capsule 25 mg PO Q6H PRN (Reason: allergic reaction) Qty: 20 0RF hydrocodone-acetaminophen 5-325 mg tablet 1 tab PO Q6H PRN (Reason: pain) Qty: 20 0RF No Action diphenhydramine HCl [Benadryl] 25 mg capsule 25 mg PO QID PRN (Reason: allergy symptoms) Qty: 30 0RF hydrocortisone 2.5 % cream 1 appl topical QID PRN (Reason: rash) Qty: 30 0RF prednisone 20 mg tablet 40 mg PO DAILY Qty: 8 0RF hydromorphone [Dilaudid] 2 mg tablet 1 mg PO Q6H PRN (Reason: pain) Qty: 5 0RF levothyroxine [Synthroid] 112 mcg Tablet 112 mcg PO DAILY 0RF cholecalciferol (vitamin D3) [Vitamin D3] 25 mcg (1,000 unit) Capsule 25 mcg PO DAILY 0RF hydrochlorothiazide 12.5 mg tablet 18.75 mg PO DAILY 0RF Rx Instructions: 1.5 TABS acetaminophen 325 mg Tablet 650 mg PO Q6H PRN (Reason: Pain, Mild (Pain Scale 1-3)) 30 Days Qty: 240 0RF celecoxib 200 mg Capsule 200 mg PO BID 30 Days Qty: 60 0RF aspirin 325 mg Tablet 325 mg PO BID 42 Days Qty: 84 0RF docusate sodium 100 mg Capsule 100 mg PO BID 30 Days Qty: 60 0RF oxycodone 5 mg Tablet 10 mg PO Q4H PRN (Reason: Pain, Moderate (Pain Scale 4-6) 7 Days Qty: 42 0RF hydrocodone-acetaminophen 5-325 mg tablet 1 tab PO Q6H PRN (Reason: pain) 7 Days Qty: 28 0RF hydroxyzine HCl 25 mg tablet 25 mg PO BEDTIME 14 Days Qty: 14 0RF Interventions: ED Discharge Assessment Last Done: 02/05/22 23:29 Discharge Date/Time: 02/05/22 23:30
[2022-02-05 21:27] VITALS: BP 92/57; PULSE 93; RESP 16; O2SAT 96
[2022-02-05] MEDS: EPINEPHrine 1 MG/ML VIAL 0.3 MG IM (21:42)
[2022-02-05] MEDS: diphenhydrAMINE HCL 50 MG/ML VIAL 25 MG IVPUSH (21:47)
[2022-02-05] MEDS: dexAMETHasone sod phosphate 10 MG/ML VIAL IVPUSH (21:51)
[2022-02-05] MEDS: Famotidine/PF 20 MG/2 ML VIAL IVPUSH (21:56)
[2022-02-05] MEDS: 0.9 % Sodium Chloride 1,000 ML 999 ML IV (21:56)
[2022-02-05 23:15] VITALS: BP 105/61; PULSE 88; RESP 16; TEMP 36.9; O2SAT 95
== END 2022-02-05 23:30 | disposition home or self-care (01) ==
PROVIDERS: Emergency Provider Internal Medicine
DX: R06.02 Shortness of breath (principal); T40.2X5A Adverse effect of other opioids, initial encounter; T39.395A Adverse effect of other nonsteroidal anti-inflammatory drugs [NSAID], initial encounter; Y92.9 Unspecified place or not applicable; I10 Essential (primary) hypertension
CPT/HCPCS: 36415; 71046; 80048; 84484; 85025; 85652; 93005; 96361; 96372; 96374; 96375; 99284; J0171; J1100; J1200

== ENCOUNTER → 2022-03-01 13:20 | Outpatient (BNVA) | payer MEDICARE, SELFPAY | PROVIDERS: Visit Provider Physician Assistant | DX: Z47.1 Aftercare following joint replacement surgery (principal); Z96.651 Presence of right artificial knee joint | CPT/HCPCS: 99212 ==

== ENCOUNTER 2022-03-23 10:04 | Emergency (ER) | payer OTHER, SELFPAY ==
[2022-03-23 10:06] VITALS: BP 152/95; PULSE 76; RESP 16; TEMP 36.1; O2SAT 98; BMI 35.3
--- NOTE | 2022-03-23 13:19 | ED.GENADULT ---
HPI - General Adult General Chief complaint: General Medical Stated complaint: Swollen tongue Time Seen by Provider: 03/23/22 13:11 History of Present Illness HPI narrative: Patient is a 67-year-old female presents today with having tongue swelling again. Patient was seen in January had an episode of tongue swelling given steroids Benadryl Pepcid with improvement in symptoms. Had a 2nd episode in February. Was given steroid and Benadryl by her primary. Today had a 3rd episode where her tongue on the right side seems to be swollen. Patient denies any difficulty breathing. Any change in her voice. Any difficulty eating. Patient is from home. Has no changes in her environment. Is not on any Delfino inhibitors. No coughing or congestion upper respiratory symptoms. No diaphoresis. Patient is on hydrochlorothiazide for hypertension. No diaphoresis. No chest pain. No systemic complaints Related Data Home Medications Medication Instructions Recorded Confirmed cholecalciferol (vitamin D3) 25 25 mcg PO DAILY 01/04/22 03/01/22 mcg (1,000 unit) capsule (Vitamin D3) levothyroxine 112 mcg tablet 112 mcg PO DAILY 01/04/22 03/01/22 (Synthroid) hydrochlorothiazide 12.5 mg tablet 18.75 mg PO DAILY 01/12/22 03/01/22 Previous Rx's Medication Instructions Recorded acetaminophen 325 mg tablet 650 mg PO Q6H PRN 30 Days #240 tab 01/19/22 aspirin 325 mg tablet 325 mg PO BID 42 Days #84 tab 01/19/22 docusate sodium 100 mg capsule 100 mg PO BID 30 Days #60 cap 01/19/22 oxycodone 5 mg tablet 10 mg PO Q4H PRN 7 Days #42 tab 01/19/22 diphenhydramine HCl 25 mg capsule 25 mg PO QID PRN #30 cap 02/01/22 (Benadryl) hydrocodone 5 mg-acetaminophen 325 1 tab PO Q6H PRN 7 Days #28 tab 02/01/22 mg tablet hydrocortisone 2.5 % topical cream 1 appl TOPICAL QID PRN #30 g 02/01/22 hydromorphone 2 mg tablet 1 mg PO Q6H PRN #5 tab 02/01/22 (Dilaudid) hydroxyzine HCl 25 mg tablet 25 mg PO BEDTIME 14 Days #14 tab 02/01/22 prednisone 20 mg tablet 40 mg PO DAILY #8 tab 02/01/22 diphenhydramine HCl 25 mg capsule 25 mg PO Q6H PRN #20 cap 02/05/22 (Benadryl) famotidine 20 mg tablet (Pepcid) 20 mg PO BID #20 tab 02/05/22 hydrocodone 5 mg-acetaminophen 325 1 tab PO Q6H PRN #20 tab 02/05/22 mg tablet prednisone 20 mg tablet 40 mg PO DAILY #10 tab 02/05/22 celecoxib 200 mg capsule 200 mg PO BID #60 cap 03/19/22 diphenhydramine HCl 25 mg capsule 25 mg PO Q8H 5 Days #15 cap 03/23/22 (Benadryl) epinephrine 0.3 mg/0.3 mL 0.3 mg (0.3 mL) IM ONCE PRN #1 ea 03/23/22 injection, auto-injector (EpiPen) famotidine 20 mg tablet (Pepcid) 20 mg PO BID 5 Days #10 tab 03/23/22 prednisone 20 mg tablet 40 mg PO DAILY #10 tab 03/23/22 Allergies Allergy/AdvReac Type Severity Reaction Status Date / Time No Known Allergies Allergy Verified 03/01/22 13:29 Review of Systems Review of Systems: No fever no chills no cough no congestion or upper respiratory symptoms no change in breathing no difficulty swallowing no fever Yes all other systems are reviewed and are negative PMFSH Past Medical History Attestation statement: The following information was validated with the patient. Medical History Chronic constipation Colon adenomas COVID-19 vaccine series completed Elevated cholesterol H/O: HTN (hypertension) HTN (hypertension) Hypothyroid Osteoarthritis Surgical History H/O colonoscopy History of total left knee replacement Hx laparoscopic cholecystectomy Hx of cataract surgery Family History Family History Sister Cancer Social History Social History Household Members: Family Housing: Apartment Are you a primary care manager to a significant other at home: No Do you presently have visiting nurse or other home services: Yes (son director of hemophilia) Alcohol intake: never Patient Tobacco Use Status: Never used Tobacco Advance Directives: Yes Advance Directives on File: Yes Advance Directives Date on File: 01/22/22 service: No Current occupational status: disabled Physical Exam ED Vital Signs: Vital Signs - 24 hr 03/23/22 10:06 Temperature 96.9 F Pulse Rate 76 Respiratory Rate 16 Blood Pressure 152/95 H Pulse Oximetry 98 BMI result Body Mass Index 35.3 Appearance: Alert. Oriented X3. No acute distress. Eyes: Pupils equal, round and reactive to light. ENT: Pharynx normal. Positive tongue swelling on the right side posterior pharynx is normal. Neck: Normal inspection. Neck supple. No lymph nodes noted. No crepitus. Trachea is midline CVS: Normal heart rate and rhythm. Pulses normal. Normal S1 and S2 Respiratory: No respiratory distress. Breath sounds normal. No Wheezing. No rales Abdomen: Soft and nontender. No rigidity. No distention. good BS x4 Skin: Skin warm and dry. Normal skin color. Normal skin turgor. Extremities: No lower extremity edema. Neurovascular intact to all extremities. No Lacerations. No Rash Neuro: Oriented X 3. No motor deficit. No sensory deficit. Moving all extermities. No slurred speech Medical Decision Making MDM Narrative Medical decision making narrative: Patient complaining of tongue swelling again this is the 3rd episode. Question etiology. For the patient's swelling is somewhat limited. There is no airway compromise. There is no difficulty with speech. There is no difficulty with swallowing. Patient was monitored in the emergency department after some steroids. The symptom has not worsened. Will continue patient on the current treatment. Have patient follow-up on an outpatient basis. Likely will need an men's leather dress belt maker for further delineate the reason for having some repeated bouts of angioedema. Patient explain worsening condition return. Lab Data Result diagrams: 03/23/22 13:31 03/23/22 14:36 Labs: Lab Results 03/23/22 03/23/22 Range/Units 13:31 14:36 WBC 10.9 H (4.8-10.8) X10*3/uL RBC 4.41 (4.20-5.50) X10*6/uL Hgb 12.6 (12.0-16.0) g/dl Hct 39.9 (37.0-47.0) % MCV 90.5 (80.0-98.0) fL MCH 28.6 (27.0-33.0) pg MCHC 31.6 (31.0-35.0) g/dl RDW 14.1 (11.0-16.0) % Plt Count 331 D (160-400) X10*3/uL MPV 8.8 L (9.4-12.3) fL Immature Gran % (Auto) 0.6 H (0.0-0.4) % Neut % (Auto) 71.3 (45-73) % Lymph % (Auto) 20.3 (20-40) % [place] % (Auto) 6.6 (2-11) % Eos % (Auto) 0.7 (0-4) % Baso % (Auto) 0.5 (0-2) % Lymph # (Auto) 2.2 (1.2-4.9) X10*3/uL [place] # (Auto) 0.7 (0.1-1.2) X10*3/uL Eos # (Auto) 0.1 (0.0-0.4) X10*3/uL Baso # (Auto) 0.1 (0.0-0.2) X10*3/uL Abs Immat Gran (auto) 0.06 H (0.00-0.03) X10*3/uL Absolute Neuts (auto) 7.8 (2.0-8.3) x10*3/uL Absolute Nucleated RBC 0.000 (0.0-0.012) X10*3/uL Nucleated RBC % (auto) 0.0 (0.0-0.2) /100WBC Sodium 142 (135-145) mmol/L Potassium 3.4 (3.3-5.1) mmol/L Chloride 102 (96-108) mmol/L Carbon Dioxide 32 H (22-29) mmol/L Anion Gap 11 L (12-20) BUN 12 D (9-16) mg/dL Creatinine 0.73 (0.5-1.4) mg/dL Estim Creat Clear Calc 71.8 Estimated GFR > 60 Random Glucose 102 (60-115) mg/dL Calcium 9.4 (8.4-10.2) mg/dL Critical Care Time Critical Care Time Critical Care Time: Yes Total Critical Care Time: 40 Attestation: I have personally provided 40 minutes of critical care time exclusive of time spent on separately billable procedures. Time includes review of lab data, radiology results, discussion with consultants, and monitoring for potential decompensation. Interventions were performed as documented above Discharge Plan Discharge Clinical Impression: Angio-edema Patient Disposition: Home, Self-Care Prescriptions: New diphenhydramine HCl [Benadryl] 25 mg capsule 25 mg PO Q8H 5 Days Qty: 15 0RF prednisone 20 mg tablet 40 mg PO DAILY Qty: 10 0RF famotidine [Pepcid] 20 mg tablet 20 mg PO BID 5 Days Qty: 10 0RF epinephrine [EpiPen] 0.3 mg/0.3 mL auto-injector 0.3 mg IM ONCE PRN (Reason: extreme reaction) Qty: 1 0RF Rx Instructions: for 2 doses No Action celecoxib 200 mg capsule 200 mg PO BID Qty: 60 0RF diphenhydramine HCl [Benadryl] 25 mg capsule 25 mg PO QID PRN (Reason: allergy symptoms) Qty: 30 0RF hydrocortisone 2.5 % cream 1 appl topical QID PRN (Reason: rash) Qty: 30 0RF prednisone 20 mg tablet 40 mg PO DAILY Qty: 8 0RF hydromorphone [Dilaudid] 2 mg tablet 1 mg PO Q6H PRN (Reason: pain) Qty: 5 0RF levothyroxine [Synthroid] 112 mcg Tablet 112 mcg PO DAILY 0RF cholecalciferol (vitamin D3) [Vitamin D3] 25 mcg (1,000 unit) Capsule 25 mcg PO DAILY 0RF hydrochlorothiazide 12.5 mg tablet 18.75 mg PO DAILY 0RF Rx Instructions: 1.5 TABS acetaminophen 325 mg Tablet 650 mg PO Q6H PRN (Reason: Pain, Mild (Pain Scale 1-3)) 30 Days Qty: 240 0RF aspirin 325 mg Tablet 325 mg PO BID 42 Days Qty: 84 0RF docusate sodium 100 mg Capsule 100 mg PO BID 30 Days Qty: 60 0RF oxycodone 5 mg Tablet 10 mg PO Q4H PRN (Reason: Pain, Moderate (Pain Scale 4-6) 7 Days Qty: 42 0RF prednisone 20 mg tablet 40 mg PO DAILY Qty: 10 0RF famotidine [Pepcid] 20 mg tablet 20 mg PO BID Qty: 20 0RF diphenhydramine HCl [Benadryl] 25 mg capsule 25 mg PO Q6H PRN (Reason: allergic reaction) Qty: 20 0RF hydrocodone-acetaminophen 5-325 mg tablet 1 tab PO Q6H PRN (Reason: pain) Qty: 20 0RF hydrocodone-acetaminophen 5-325 mg tablet 1 tab PO Q6H PRN (Reason: pain) 7 Days Qty: 28 0RF hydroxyzine HCl 25 mg tablet 25 mg PO BEDTIME 14 Days Qty: 14 0RF Referrals: Physician,Unknown J [Primary Care Provider] - (Please follow-up with your primary physician. Please ask for referral to an men's leather dress belt maker.) Print Language: Greek
[2022-03-23] MEDS: diphenhydrAMINE HCL 50 MG/ML VIAL 25 MG IVPUSH (13:32)
[2022-03-23] MEDS: Famotidine/PF 20 MG/2 ML VIAL IVPUSH (13:32)
[2022-03-23] MEDS: methylPREDNISolone Sod Succ 125 MG/2 ML VIAL IVPUSH (13:32)
[2022-03-23 13:49] LABS: MANUAL DIFF FLAG NO
[2022-03-23 13:54] LABS: Basophils Absolute Auto 0.1 X10*3/uL (0.0-0.2); Basophils Percent Auto 0.5 % (0-2); Eosinophils Absolute Auto 0.1 X10*3/uL (0.0-0.4); Eosinophils Percent Auto 0.7 % (0-4); Hematocrit 39.9 % (37.0-47.0); Hemoglobin 12.6 g/dl (12.0-16.0); Imm Gran Abs Auto 0.06 X10*3/uL (0.00-0.03); Imm Gran Pct Auto 0.6 % (0.0-0.4); Lymphocytes Absolute Auto 2.2 X10*3/uL (1.2-4.9); Lymphocytes Percent Auto 20.3 % (20-40); Mean Corpuscular HGB Conc 31.6 g/dl (31.0-35.0); Mean Corpuscular Hemoglobin 28.6 pg (27.0-33.0); Mean Corpuscular Volume 90.5 fL (80.0-98.0); Mean Platelet Volume 8.8 fL (9.4-12.3); Monocytes Absolute Auto 0.7 X10*3/uL (0.1-1.2); Monocytes Percent Auto 6.6 % (2-11); Neutrophils Absolute Auto 7.8 x10*3/uL (2.0-8.3); Neutrophils Percent Auto 71.3 % (45-73); Platelet Count 331 X10*3/uL (160-400); Red Blood Count 4.41 X10*6/uL (4.20-5.50); Red Cell Distribution Width 14.1 % (11.0-16.0); White Blood Count 10.9 X10*3/uL (4.8-10.8)
[2022-03-23 14:59] LABS: Anion Gap 11 (12-20); Blood Urea Nitrogen 12 mg/dL (9-16); Calcium 9.4 mg/dL (8.4-10.2); Carbon Dioxide 32 mmol/L (22-29); Chloride 102 mmol/L (96-108); Creatinine Clr Calc Pharmacy 71.8; Estimated Glomerular Filt Rate > 60; Glucose Random 102 mg/dL (60-115); Potassium 3.4 mmol/L (3.3-5.1); Sodium 142 mmol/L (135-145)
== END 2022-03-23 16:09 | disposition home or self-care (01) ==
PROVIDERS: Emergency Provider Emergency Medicine Emergency Medical Services
DX: T78.3XXA Angioneurotic edema, initial encounter (principal); I10 Essential (primary) hypertension; Z79.899 Other long term (current) drug therapy
CPT/HCPCS: 36415; 80048; 85025; 96374; 96375; 99283; 99291; J1200; J2930

== ENCOUNTER 2022-04-12 12:14 | Outpatient (REF) | payer OTHER, SELFPAY ==
--- NOTE | ~2022-04-12 | XR_ITS ---
EXAMINATION: CHEST X-RAY CLINICAL INFORMATION: Pain COMPARISON: Previous x-ray December and January TECHNIQUE: Standing AP view of both knees and lateral and sunrise view of the right knee FINDINGS: Right: There is a 3 component right knee replacement in satisfactory position. No fracture, dislocation or x-ray evidence of loosening is seen. There is soft tissue swelling over the anterior knee. There is no significant joint effusion. Standing AP view of the left knee demonstrates a left knee replacement in satisfactory position. XR/XR knee RT 2V IMPRESSION: Satisfactory appearance of right knee replacement. Soft tissue swelling over the right knee.
--- NOTE | ~2022-04-12 | XR_ITS ---
EXAMINATION: CHEST X-RAY CLINICAL INFORMATION: Pain COMPARISON: Previous x-ray December and January TECHNIQUE: Standing AP view of both knees and lateral and sunrise view of the right knee FINDINGS: Right: There is a 3 component right knee replacement in satisfactory position. No fracture, dislocation or x-ray evidence of loosening is seen. There is soft tissue swelling over the anterior knee. There is no significant joint effusion. Standing AP view of the left knee demonstrates a left knee replacement in satisfactory position. XR/XR knee standing BI IMPRESSION: Satisfactory appearance of right knee replacement. Soft tissue swelling over the right knee.
== END 2022-04-12 12:15 | disposition home or self-care (01) ==
LOC: HO.HOSX 12:14
PROVIDERS: Visit Provider Orthopaedic Surgery
DX: Z47.1 Aftercare following joint replacement surgery (principal); Z96.651 Presence of right artificial knee joint
CPT/HCPCS: 73560; 73565; 99212

== ENCOUNTER 2022-08-22 13:58 | Outpatient (REF) | payer OTHER, SELFPAY ==
--- NOTE | ~2022-08-22 | XR_ITS ---
EXAMINATION: XR CERVICAL SPINE CLINICAL INFORMATION: Neck pain COMPARISON: None TECHNIQUE: 6 views of the cervical spine, inclusive of flexion and extension views, were obtained. FINDINGS: There is maintained cervical lordosis. The vertebral heights, alignment and disc heights are normal. There is mild ventral spondylosis at C5-C6 disc level. On oblique views, the neural foramina are widely patent. No acute fracture, lytic or sclerotic process seen. The prevertebral soft tissues are normal. XR/XR cervical spine 5V IMPRESSION: Mild ventral spondylosis C5-C6 disc level. No visible acute fracture, dislocation or subluxation seen.
== END 2022-08-22 13:59 | disposition home or self-care (01) ==
LOC: HO.XRAY 13:58
PROVIDERS: Absent Provider Internal Medicine; PCP Internal Medicine; Visit Provider Internal Medicine Geriatric Medicine
DX: M54.2 Cervicalgia (principal)
CPT/HCPCS: 72050

== ENCOUNTER 2022-09-14 14:07 | Outpatient (REF) | payer OTHER, SELFPAY ==
--- NOTE | ~2022-09-14 | MM_ITS ---
EXAMINATION: MM SCREENING DIGITAL BREAST TOMOSYNTHESIS, BILATERAL CLINICAL INFORMATION: Screening. Asymptomatic. Family history breast cancer, 2 sisters. The lifetime risk of breast cancer based on the Tyrer-Cuzick Model is 9%. COMPARISON: Mammography: 08/11/2021, 08/12/2020, 08/07/2019 TECHNIQUE: Digital breast tomosynthesis is performed in both the craniocaudal and mediolateral oblique views along with computer-aided detection (CAD). Synthesized 2D images are generated from the tomosynthesis. Additional right MLO and left CC views are provided. FINDINGS: There are scattered areas of fibroglandular density (ACR BI-RADS breast composition Category b). There are no significant masses, abnormal calcifications, or other abnormalities. No developing density or interval architectural abnormality. There are regional predominantly ductal secretory calcifications again noted central outer breasts. The axilla and skin contours are unremarkable. There are no significant changes. MM/MM tomosynthesis screening BI IMPRESSION: No significant changes from prior studies. ASSESSMENT: BI-RADS 2: Benign RECOMMENDATION: Routine annual mammography screening. This patient's information was entered into a reminder system with a target due date for their next mammogram.
== END 2022-09-14 14:08 | disposition home or self-care (01) ==
LOC: HO.MAMMO 14:07
PROVIDERS: Visit Provider Internal Medicine
DX: Z12.31 Encounter for screening mammogram for malignant neoplasm of breast (principal)
CPT/HCPCS: 77063; 77067

== ENCOUNTER 2023-01-14 12:35 | Outpatient (REF) | payer OTHER, SELFPAY ==
--- NOTE | ~2023-01-14 | XR_ITS ---
EXAMINATION: XR KNEE, RIGHT XR KNEE, STANDING CLINICAL INFORMATION: Pain COMPARISON: Right knee radiograph from 04/12/2022 TECHNIQUE: 2 views of the right knee single view of the proximal bilateral standing knees FINDINGS: US of bilateral knee arthroplasty, grossly intact. No acute visible fracture or dislocation. Fabella is noted in the posterior right knee compartment. Joint spaces and alignment are otherwise maintained. No large knee joint effusion. Soft tissues are unremarkable. XR/XR knee standing BI IMPRESSION: 1. No acute visible fracture or dislocation. 2. Status post bilateral knee arthroplasty, grossly intact.
--- NOTE | ~2023-01-14 | XR_ITS ---
EXAMINATION: XR KNEE, RIGHT XR KNEE, STANDING CLINICAL INFORMATION: Pain COMPARISON: Right knee radiograph from 04/12/2022 TECHNIQUE: 2 views of the right knee single view of the proximal bilateral standing knees FINDINGS: US of bilateral knee arthroplasty, grossly intact. No acute visible fracture or dislocation. Fabella is noted in the posterior right knee compartment. Joint spaces and alignment are otherwise maintained. No large knee joint effusion. Soft tissues are unremarkable. XR/XR knee RT 2V IMPRESSION: 1. No acute visible fracture or dislocation. 2. Status post bilateral knee arthroplasty, grossly intact.
== END 2023-01-14 12:36 | disposition home or self-care (01) ==
LOC: HO.HOSX 12:35
PROVIDERS: Visit Provider Orthopaedic Surgery
DX: Z96.651 Presence of right artificial knee joint (principal)
CPT/HCPCS: 73560; 73565; 99212

== ENCOUNTER 2023-05-03 14:46 | Outpatient (REF) | payer OTHER, SELFPAY ==
--- NOTE | ~2023-05-03 | MM_ITS ---
EXAMINATION: BONE DENSITOMETRY CLINICAL INDICATION: Encounter for screening for osteoporosis. COMPARISON: Baseline BD dated 05/01/2019. TECHNIQUE: Using a [employer] Alert DXA System (software version: 13.1) manufactured by [employer], dual-energy x-ray absorptiometry was performed of the lumbar spine and left hip. The images are of good technical quality. Summary results are attached. FINDINGS: AP SPINE L1-L4: Current: BMD 1.119 g/cm2, Z-score 0.2, T-score -0.5, normal, 3.9% decrease from baseline (<5% change is not significant). Baseline: BMD 1.165 g/cm2. LEFT FEMUR, NECK: Current: BMD 0.744 g/cm2, Z-score -1.0, T-score -2.1, osteopenia. Baseline: BMD 0.954 g/cm2. LEFT FEMUR, TOTAL: Current: BMD 0.843 g/cm2, Z-score -0.5, T-score -1.3, osteopenia, 15.5% decrease from baseline (<5% change is not significant). Baseline: BMD 0.998 g/cm2. IDENTIFIED RISK FACTORS: Menopause. HISTORY OF FRACTURE: None listed. MEDICATIONS: Vitamin D. MM/XR DEXA axial skeleton IMPRESSION: 1. DIAGNOSIS: Osteopenia based on the lowest T-score value of -2.1 in the femoral neck applying World Health Organization criteria. 2. 10-YEAR FRACTURE RISK PREDICTION, FRAX: Major osteoporotic fracture (clinical spine, forearm, hip or shoulder) 6.3%. Hip fracture 1.2%. 3. Treatment Recommendations: NOF guidelines recommend consideration for treatment in postmenopausal women and men age 50 and older presenting with the following: -A hip or vertebral (clinical or morphometric) fracture. -T-score less than or equal to -2.5 at the femoral neck or spine after appropriate evaluation to exclude secondary causes. -Low bone mass at the hip or spine and a 10-year fracture probability by FRAX of greater than or equal to 3% for hip fracture or greater than or equal to 20% for major osteoporotic fracture based on the [place] adapted WHO algorithm. 4. Other Recommendations: All treatment decisions require clinical judgment and consideration of individual patient factors, including patient preferences, comorbidities, previous drug use, risk factors not captured in the FRAX model (e.g. frailty, falls, vitamin D deficiency, increased bone turnover, interval significant decline in bone density) and possible under or overestimation of fracture risk by FRAX. Additional medical evaluation for secondary cause of low bone mineral density may be appropriate. FUTURE SCAN RECOMMENDATION: People with diagnosed cases of osteoporosis or at high risk for fracture should have regular bone mineral density tests. For patients eligible for Medicare, routine testing is allowed once every 2 years. The testing frequency can be increased to one year for patients who have rapidly progressing disease, those who are receiving or discontinuing medical therapy to restore bone mass, or have additional risk factors.
== END 2023-05-03 14:47 | disposition home or self-care (01) ==
LOC: HO.MAMMO 14:46
PROVIDERS: PCP Internal Medicine; Visit Provider Internal Medicine
DX: Z13.820 Encounter for screening for osteoporosis (principal); Z78.0 Asymptomatic menopausal state
CPT/HCPCS: 77080

== ENCOUNTER 2023-06-28 20:23 | Outpatient (REF) | payer OTHER, SELFPAY | END 2023-06-28 20:24 | disposition home or self-care (01) | LOC: HO.HHCLNP 20:23 | PROVIDERS: Visit Provider Registered Nurse | DX: H66.90 Otitis media, unspecified, unspecified ear (principal) | CPT/HCPCS: 87070; 87147 ==

== ENCOUNTER 2023-09-20 11:12 | Outpatient (REF) | payer OTHER, SELFPAY ==
--- NOTE | ~2023-09-20 | MM_ITS ---
EXAMINATION: MM SCREENING DIGITAL BREAST TOMOSYNTHESIS, BILATERAL CLINICAL INFORMATION: Screening. Asymptomatic. COMPARISON: Mammography: This study is compared with prior exams dating back to 2017. TECHNIQUE: Digital breast tomosynthesis is performed in both the craniocaudal and mediolateral oblique views along with computer-aided detection (CAD). Synthesized 2D images are generated from the tomosynthesis. FINDINGS: The breasts are almost entirely fatty (ACR BI-RADS breast composition Category a). There are no significant masses, abnormal calcifications, or other abnormalities. Unchanged, bilateral benign calcifications are present in each breast. MM/MM tomosynthesis screening BI IMPRESSION: No mammographic evidence of malignancy. ASSESSMENT: BI-RADS BI-RADS 2 - Benign Findings RECOMMENDATION: Routine annual mammography screening. 1 year F/U This examination should not preclude the clinical evaluation of a suspicious palpable abnormality. This patient's information was entered into a reminder system with a target due date for their next mammogram.
== END 2023-09-20 11:13 | disposition home or self-care (01) ==
LOC: HO.MAMMO 11:12
PROVIDERS: Visit Provider Internal Medicine
DX: Z12.31 Encounter for screening mammogram for malignant neoplasm of breast (principal)
CPT/HCPCS: 77063; 77067

== ENCOUNTER → 2023-09-20 11:30 | Outpatient (BNV) | payer OTHER, SELFPAY | PROVIDERS: Visit Provider Radiology Diagnostic Radiology | DX: Z12.31 Encounter for screening mammogram for malignant neoplasm of breast (principal) | CPT/HCPCS: 77063; 77067 ==

== ENCOUNTER 2024-01-10 17:46 | Emergency (ER) | payer OTHER, SELFPAY ==
--- NOTE | ~2024-01-10 | XR_ITS ---
EXAMINATION: XR CHEST CLINICAL INFORMATION: Shortness of breath and wheezing COMPARISON: Previous chest x-ray January 2022 TECHNIQUE: 2 views of the chest were obtained. FINDINGS: The cardiac silhouette is enlarged but stable. The lung volumes are low. The lungs are clear. No pleural effusion or pneumothorax. Degenerative changes of the spine. Old right rib fractures. XR/XR chest 2V IMPRESSION: Low lung volumes. No evidence for acute disease in the chest.
[2024-01-10 18:23] VITALS: BP 136/78; PULSE 76; RESP 18; TEMP 36.3; O2SAT 95; BMI 39.4
--- NOTE | 2024-01-10 18:25 | ED_ITS ---
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 Patient was seen by her PCP 3 days prior and started on a Ventolin inhaler with spacer and Tessalon Perles. Patient states she has not better. She states that she now has left-sided chest pain which she describes as a tightness which is worse with coughing but not worse with breathing or movement. She denied fever, chills, rhinorrhea. She denied nausea, vomiting or diarrhea. She denied abdominal pain, frequency, urgency or dysuria. She states she is feeling weak and fatigued. Patient has no history of asthma or COPD. Related Data Home Medications Medication Instructions Recorded Confirmed cholecalciferol (vitamin D3) 25 25 mcg PO DAILY 01/04/22 03/01/22 mcg (1,000 unit) capsule (Vitamin D3) levothyroxine 112 mcg tablet 112 mcg PO DAILY 01/04/22 03/01/22 (Synthroid) hydrochlorothiazide 12.5 mg tablet 18.75 mg PO DAILY 01/12/22 03/01/22 Previous Rx's Medication Instructions Recorded acetaminophen 325 mg tablet 650 mg (2 x 325 mg) PO Q6H PRN 01/19/22 Pain, Mild (Pain Scale 1-3) 30 days #240 tabs aspirin 325 mg tablet 325 mg PO BID 42 days #84 tabs 01/19/22 docusate sodium 100 mg capsule 100 mg PO BID 30 days #60 caps 01/19/22 diphenhydramine HCl 25 mg capsule 25 mg PO QID PRN allergy symptoms 02/01/22 (Benadryl) #30 caps hydrocortisone 2.5 % topical cream 1 appl topical QID PRN rash #30 02/01/22 grams hydroxyzine HCl 25 mg tablet 25 mg PO BEDTIME 14 days #14 tabs 02/01/22 prednisone 20 mg tablet 40 mg (2 x 20 mg) PO DAILY #8 tabs 02/01/22 diphenhydramine HCl 25 mg capsule 25 mg PO Q6H PRN allergic reaction 02/05/22 (Benadryl) #20 caps famotidine 20 mg tablet (Pepcid) 20 mg PO BID #20 tabs 02/05/22 diphenhydramine HCl 25 mg capsule 25 mg PO Q8H 5 days #15 caps 03/23/22 (Benadryl) epinephrine 0.3 mg/0.3 mL 0.3 mg (0.3 mL) IM ONCE PRN 03/23/22 injection, auto-injector (EpiPen) extreme reaction #1 ea famotidine 20 mg tablet (Pepcid) 20 mg PO BID 5 days #10 tabs 03/23/22 prednisone 20 mg tablet 40 mg (2 x 20 mg) PO DAILY #10 tabs 03/23/22 celecoxib 200 mg capsule 200 mg PO DAILY #30 caps 02/27/23 doxycycline hyclate 100 mg tablet 100 mg PO Q12H 7 days #14 tabs 01/10/24 prednisone 20 mg tablet 40 mg (2 x 20 mg) PO DAILY 5 days 01/10/24 #10 tabs Allergies Allergy/AdvReac Type Severity Reaction Status Date / Time No Known Allergies Allergy Verified 01/14/23 14:34 Review of Systems Review of Systems: Yes all other systems are reviewed and are negative [facility] Past Medical History [facility] Narrative: Social history: She denies tobacco, alcohol and drug use. 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) Alcohol intake: never Patient Tobacco Use Status: Never used Tobacco Advance Directives: Yes Advance Directives on File: Yes Advance Directives Date on File: 01/22/22 service: No Current occupational status: disabled Physical Exam Vital Signs: Vital Signs: Last Vital Signs Temp 97.9 F 01/10/24 22:24 Pulse 60 01/10/24 22:24 Resp 17 01/10/24 22:24 BP 135/83 01/10/24 22:24 Pulse Ox 96 01/10/24 22:24 O2 Del Method Room Air 01/10/24 22:24 BMI result Body Mass Index 39.4 Vital signs were normal Exam: General: Awake, alert in no distress Head: Normocephalic, atraumatic EENT: PERRL, Lids normal, sclera normal, conjunctiva normal, nose normal , ears normal, throat without erythema or exudates Neck: Supple, no adenopathy Lung: Diffuse wheezing at end expiration, diffuse rhonchi, no rales Chest: symmetric movement, nontender Heart: regular rate and rhythm, normal S1, S2 no murmurs or rubs Abdomen: soft, non-tender, nondistended, normal bowel sounds Back: no vertebral tenderness, no CVAT Extremities: no deformities, moves all extremities symmetrically Neuro: Awake, alert, oriented, normal speech, moves all extremities symmetrically Psych: Pleasant, cooperative Course Course Course Narrative: RME:?68 yo Slovak speaking female here w/ SOB, nasal congestion, cough productive of brown sputum and chest tightness on coughing. denies fever/chills. Seen at [facility] for same 4 days ago. given -[id number] -(-correction- Ventolin inhaler-DS) and and tessalon perles which have not improved symptoms. no hx of tobacco use. no known asthma. denies ill contacts. +expiratory wheezes to left lung serology, CXR ordered Full HPI, ROS and PE to be performed by the primary ED provider. Medical Decision Making Medical Decision Making MDM Narrative: 68-year-old female with a history of hypertension, hyperlipidemia, hypothyroidism who presents emergency department for evaluation of nonproductive cough x1 week, shortness of breath, dyspnea on exertion with 2 days of left- sided pleuritic chest pain. Patient denied fever, chills, rhinorrhea, nausea, vomiting, abdominal pain. She does have myalgias and arthralgias as well as fatigue. Vital signs were normal. Physical examination did reveal diffuse wheezing with end expiration and diffuse rhonchi with no rales, breath sounds symmetric. Differential diagnosis: Includes was not limited to pneumonia, viral bronchitis, bacterial bronchitis, bronchospasm, bronchial inflammation Following evaluation was ordered: COVID-19, influenza, RSV and chest x-ray. 22:50 My interpretation of the patient's laboratory evaluation is as follows: COVID- 19, influenza RSV were negative Chest x-ray revealed no acute infiltrate on my review and on the radiology reading Patient's presentation is consistent with acute bronchitis Patient was advised to continue taking her Ventolin inhaler with spacer as well as her Tessalon Perles She was prescribed prednisone 40 mg once a day for 5 days and doxycycline 100 mg every 12 hours for 7 days. She was given printed and verbal instructions discharged home Admission/Observation Consideration of admission/observation: Escalation of care including admission/observation considered Lab Data MDM Lab Attestation statement: I reviewed the patient's lab results. Labs: Lab Results 01/10/24 Range/Units 18:41 Influenza Type A (PCR) NEGATIVE (Negative) Influenza Type B (PCR) NEGATIVE (Negative) RSV RNA Qual (PCR) NEGATIVE (Negative) SARS-CoV-2 RNA (RT-PCR) NEGATIVE (Negative) Independent Interpretation I performed an independent interpretation of an: Plain X-Ray Interpretation: My interpretation of the patient's chest x-ray is as follows: No acute infiltrate Radiology Impression Discussion of test interpretation with radiology: I have reviewed the radiologist's reading. Radiologist Impression: XR chest 2V IMPRESSION: Low lung volumes. No evidence for acute disease in the chest. Dictated By: Jo Ye MD Independent Historian Clinical information obtained from an independent historian. History obtained from or confirmed by: Other (Daughter, Ashley) Prescription Management I considered prescription management with: Antibiotic (Doxycycline) and Other (Steroid [id number]) Chronic Conditions Patient?s care impacted by: Hypertension and Other (Hyperlipidemia) Discharge Plan Discharge Clinical Impression: Acute bronchitis Patient Disposition: Home, Self-Care Instructions: Acute Bronchitis (ED) Additional Instructions: Your chest x-ray was unremarkable, there has no evidence for pneumonia which is reassuring. Your COVID-19, influenza and RSV were negative. Your symptoms and exam are consistent with acute bronchitis which is inflammation, spent and infection of your breathing tubes Continue to use the Ventolin inhaler with the spacer every 4 hours while awake to help reduce the spasm in your breathing tubes. Take prednisone 20 mg pills,2 pills once a day for 5 days. This is an anti- inflammatory medication which will reduce the inflammation your breathing tubes. While you ?are taking prednisone, do not take any NSAIDs (Motrin, Advil, ibuprofen, Aleve, naproxen). Take doxycycline 100 mg pills, 1 pill every 12 hours as needed Continue taking the Tessalon Perles (benzonate) as prescribed by your provider Follow-up with your doctor in 2 days. Please return to the emergency department if your symptoms get worse or if you develop any symptoms that are concerning to you. Prescriptions: New prednisone 20 mg tablet 40 mg PO DAILY 5 Days Qty: 10 0RF doxycycline hyclate 100 mg tablet 100 mg PO Q12H 7 Days Qty: 14 0RF No Action celecoxib 200 mg capsule 200 mg PO DAILY Qty: 30 0RF diphenhydramine HCl [Benadryl] 25 mg capsule 25 mg PO QID PRN (Reason: allergy symptoms) Qty: 30 0RF hydrocortisone 2.5 % cream 1 appl topical QID PRN (Reason: rash) Qty: 30 0RF prednisone 20 mg tablet 40 mg PO DAILY Qty: 8 0RF levothyroxine [Synthroid] 112 mcg Tablet 112 mcg PO DAILY cholecalciferol (vitamin D3) [Vitamin D3] 25 mcg (1,000 unit) Capsule 25 mcg PO DAILY hydrochlorothiazide 12.5 mg tablet 18.75 mg PO DAILY Rx Instructions: 1.5 TABS acetaminophen 325 mg Tablet 650 mg PO Q6H PRN (Reason: Pain, Mild (Pain Scale 1-3)) 30 Days Qty: 240 0RF aspirin 325 mg Tablet 325 mg PO BID 42 Days Qty: 84 0RF docusate sodium 100 mg Capsule 100 mg PO BID 30 Days Qty: 60 0RF famotidine [Pepcid] 20 mg tablet 20 mg PO BID Qty: 20 0RF diphenhydramine HCl [Benadryl] 25 mg capsule 25 mg PO Q6H PRN (Reason: allergic reaction) Qty: 20 0RF diphenhydramine HCl [Benadryl] 25 mg capsule 25 mg PO Q8H 5 Days Qty: 15 0RF prednisone 20 mg tablet 40 mg PO DAILY Qty: 10 0RF famotidine [Pepcid] 20 mg tablet 20 mg PO BID 5 Days Qty: 10 0RF epinephrine [EpiPen] 0.3 mg/0.3 mL auto-injector 0.3 mg IM ONCE PRN (Reason: extreme reaction) Qty: 1 0RF Rx Instructions: for 2 doses hydroxyzine HCl 25 mg tablet 25 mg PO BEDTIME 14 Days Qty: 14 0RF
[2024-01-10 19:26] LABS: Influenza A PCR NEGATIVE (Negative); Influenza B PCR NEGATIVE (Negative); Resp Syncy Virus RNA Qual PCR NEGATIVE (Negative); SARS COV2 PCR INHOUSE NEGATIVE (Negative)
[2024-01-10 22:24] VITALS: BP 135/83; PULSE 60; RESP 17; TEMP 36.6; O2SAT 96
[2024-01-10] MEDS: predniSONE 20 MG TABLET 40 MG PO (22:59)
[2024-01-10] MEDS: Doxycycline Monohydrate 100 MG CAPSULE PO (22:59)
[2024-01-10 23:55] VITALS: BP 135/76; PULSE 64; RESP 16; TEMP 36.5; O2SAT 96
== END 2024-01-11 00:39 | disposition home or self-care (01) ==
PROVIDERS: Physician Assistant Medical; Emergency Provider Emergency Medicine Emergency Medical Services; PCP Internal Medicine
DX: J20.9 Acute bronchitis, unspecified (principal); R05.9 Cough, unspecified; I10 Essential (primary) hypertension; E03.9 Hypothyroidism, unspecified; R06.02 Shortness of breath; Z11.52 Encounter for screening for COVID-19; Z20.828 Contact with and (suspected) exposure to other viral communicable diseases
CPT/HCPCS: 0241U; 71046; 99283; 99284

== ENCOUNTER 2024-03-26 12:14 | Outpatient (REF) | payer OTHER, SELFPAY ==
[2024-03-26 13:40] LABS: MANUAL DIFF FLAG NO
[2024-03-26 13:47] LABS: Basophils Absolute Auto 0.1 X10*3/uL (0.0-0.2); Eosinophils Absolute Auto 0.2 X10*3/uL (0.0-0.4); Eosinophils Percent Auto 2.4 % (0-4); Hemoglobin 13.4 g/dl (12.0-16.0); Imm Gran Abs Auto 0.02 X10*3/uL (0.00-0.03); Imm Gran Pct Auto 0.3 % (0.0-0.4); Lymphocytes Absolute Auto 2.1 X10*3/uL (1.2-4.9); Lymphocytes Percent Auto 29.8 % (20-40); Mean Corpuscular HGB Conc 32.7 g/dl (31.0-35.0); Mean Corpuscular Hemoglobin 30.4 pg (27.0-33.0); Mean Platelet Volume 8.6 fL (9.4-12.3); Monocytes Absolute Auto 0.5 X10*3/uL (0.1-1.2); Monocytes Percent Auto 7.8 % (2-11); Neutrophils Absolute Auto 4.1 x10*3/uL (2.0-8.3); Neutrophils Percent Auto 58.7 % (45-73); Platelet Count 311 X10*3/uL (160-400); Red Blood Count 4.41 X10*6/uL (4.20-5.50); Red Cell Distribution Width 13.4 % (11.0-16.0); White Blood Count 6.9 X10*3/uL (4.8-10.8)
[2024-03-26 13:54] LABS: Estimated Average Glucose 126 mg/dL
[2024-03-26 14:31] LABS: Alanine Aminotransferase 21 U/L (0-31); Albumin Level 4.2 g/dL (3.5-5.0); Alkaline Phosphatase 86 U/L (39-117); Anion Gap 16 (12-20); Aspartate Amino Transferase 22 U/L (5-31); Bilirubin Direct 0.3 mg/dL (0.0-0.5); Bilirubin Total 0.7 mg/dL (0.0-1.0); Blood Urea Nitrogen 13 mg/dL (9-16); Calcium 10.1 mg/dL (8.4-10.2); Carbon Dioxide 31 mmol/L (22-29); Chloride 100 mmol/L (96-108); Cholesterol 163 mg/dL (<200); Estimated Glomerular Filt Rate > 60; Glucose Random 86 mg/dL (60-115); HDL Cholesterol 78 mg/dL (>40); LDL Cholesterol Calculated 74 mg/dL (<100); Potassium 3.5 mmol/L (3.3-5.1); Sodium 143 mmol/L (135-145); Total Protein 8.1 g/dL (6.5-8.0); Triglycerides 56 mg/dL (<150)
[2024-03-26 14:47] LABS: TSH reflex Free T4 0.79 uIU/mL (0.32-4.0)
== END 2024-03-26 12:15 | disposition home or self-care (01) ==
LOC: HO.HHCL 12:14
PROVIDERS: Visit Provider Internal Medicine
DX: I10 Essential (primary) hypertension (principal); E03.9 Hypothyroidism, unspecified
CPT/HCPCS: 36415; 80048; 80061; 80076; 83036; 84443; 85025

== ENCOUNTER 2024-07-03 12:26 | Outpatient (AMB) | payer OTHER, SELFPAY ==
--- NOTE | 2024-07-03 12:30 | A.OFFVIS_ITS ---
Vital Signs 07/03/24 12:31 Height 5 ft Weight 202 lb BMI 39.4 Intake Visit Reasons: NewProb- LT knee pain Intake Note: Roseline is a 69 year old female who presents today for a new problem visit with complaints of left knee pain. She had a left TKA many years ago and has had no problems until she slipped and twisted awkwardly about 2 weeks ago. Since then she has had dull aching and throbbing in the left knee and soreness behind the knee. 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 She is walkign comfortably Assessment & Plan Assessment & Plan (1) History of total left knee replacement (TKR): Code(s): Z96.652 - Presence of left artificial knee joint Category: Medical Plan: 2 weeks s/p injury to left knee. Her exam is benign and she is walking well. I recommend ice and activity modification. If there is no improvement she can return to see me in 4-6 weeks. Coding Level of Care Code Est Pt Level 3 (42056) Diagnoses History of total left knee replacement (TKR) Z96.652
[2024-07-03 12:31] VITALS: BMI 39.4
== END 2024-07-03 12:55 | disposition home or self-care (01) ==
PROVIDERS: Absent Provider Orthopaedic Surgery; PCP Internal Medicine; Visit Provider Orthopaedic Surgery
DX: M25.562 Pain in left knee (principal); Z96.652 Presence of left artificial knee joint
CPT/HCPCS: 99213

== ENCOUNTER → 2024-07-03 12:26 | Outpatient (BNVA) | payer OTHER, SELFPAY | PROVIDERS: Absent Provider Orthopaedic Surgery; PCP Internal Medicine; Visit Provider Orthopaedic Surgery | DX: S89.82XA Other specified injuries of left lower leg, initial encounter (principal); Z96.652 Presence of left artificial knee joint | CPT/HCPCS: 99212 ==

== ENCOUNTER 2024-09-29 13:54 | Outpatient (REF) | payer OTHER, SELFPAY ==
--- NOTE | ~2024-09-29 | MM_ITS ---
EXAMINATION: MM SCREENING DIGITAL BREAST TOMOSYNTHESIS, BILATERAL CLINICAL INFORMATION: Screening. Asymptomatic. COMPARISON: Mammography: Comparison is made with available priors TECHNIQUE: Digital breast mammography with tomosynthesis is performed in both the craniocaudal and mediolateral oblique views along with computer-aided detection (CAD). FINDINGS: There are scattered areas of fibroglandular density (ACR BI-RADS breast composition Category b). Right: There are no significant masses, abnormal calcifications, or other abnormalities. Left: Focal asymmetry lower inner breast anterior depth. No suspicious calcifications or other abnormal findings. MM/MM tomosynthesis screening BI IMPRESSION: Additional imaging is recommended ASSESSMENT: BI-RADS BI-RADS 0 - Incomplete: Needs additional Imaging. RECOMMENDATION: 1. Additional views of the left breast 2. Targeted ultrasound if warranted after review of the additional views. 3. Radiology department staff will contact the patient for additional imaging. Additional Imaging required This examination should not preclude the clinical evaluation of a suspicious palpable abnormality. This patient's information was entered into a reminder system with a target due date for their next mammogram. Electronically signed by: Ailyn Perez DO 10/07/2024 03:58 PM [facility]
== END 2024-09-29 13:55 | disposition home or self-care (01) ==
LOC: HO.MAMMO 13:54
PROVIDERS: PCP Internal Medicine; Visit Provider Internal Medicine
DX: Z12.31 Encounter for screening mammogram for malignant neoplasm of breast (principal)
CPT/HCPCS: 77063; 77067

== ENCOUNTER → 2024-09-29 14:15 | Outpatient (BNV) | payer OTHER, SELFPAY | PROVIDERS: PCP Internal Medicine; Visit Provider Internal Medicine | DX: Z12.31 Encounter for screening mammogram for malignant neoplasm of breast (principal) | CPT/HCPCS: 77063; 77067 ==

== ENCOUNTER 2024-10-12 07:52 | Outpatient (REF) | payer OTHER, SELFPAY ==
--- NOTE | ~2024-10-12 | US_ITS ---
EXAMINATION: MM DIAGNOSTIC DIGITAL BREAST TOMOSYNTHESIS, LEFT US BREAST LIMITED, LEFT MAMMOGRAPHY: CLINICAL INFORMATION: Diagnostic Exam: Evaluate focal asymmetry anterior one third of the left breast, lower inner aspect. COMPARISON: Mammography: 09/29/2024, and available priors. TECHNIQUE: Digital breast tomosynthesis is performed in both the craniocaudal and mediolateral oblique views along with computer-aided detection (CAD). Synthesized 2D images are generated from the tomosynthesis. FINDINGS: There are scattered areas of fibroglandular density (ACR BI-RADS breast composition Category b). The focal asymmetry in the lower, inner left breast, anterior one third, appears to represent a normal glandular island, with no definitive persistent mass, architectural distortion, or suspicious calcifications. We will evaluate this region with ultrasound. In review of prior mammograms, this area appears similar dating back to 2019. Secretory calcifications again noted, benign. ULTRASOUND: CLINICAL INFORMATION: Evaluate focal asymmetry anterior one third of the left breast, lower inner aspect. COMPARISON: None relevant. TECHNIQUE: Targeted sonographic evaluation was performed using a high frequency linear transducer. Selected archived documentation. FINDINGS: LEFT BREAST: There is a mixture of fatty and fibroglandular tissue. No suspicious mass is seen. There is no pathologic acoustic shadowing. There is no cystic abnormality. There is no correlate on ultrasound to the index mammographic abnormality, which appears to represent an island of normal tissue. US/US breast LT limited mamm only IMPRESSION: 1. There are no persistent findings suspicious for malignancy in the left breast. 2. Benign findings noted. 3. Recommend the patient return to routine annual screening mammography in one year. OVERALL ASSESSMENT: Mammography: BI-RADS 2 - Benign Findings Ultrasound: BI-RADS 2 - Benign Findings RECOMMENDATION: 1 year F/U This patient's information was entered into a reminder system with a target due date for their next mammogram. Electronically signed by: John Ward MD 10/12/2024 08:41 AM [facility]
== END 2024-10-12 07:53 | disposition home or self-care (01) ==
LOC: HO.MAMMO 07:52
PROVIDERS: PCP Internal Medicine; Visit Provider Internal Medicine
DX: N64.89 Other specified disorders of breast (principal)
CPT/HCPCS: 76642; 77061; 77065

== ENCOUNTER → 2024-10-12 08:00 | Outpatient (BNV) | payer OTHER, SELFPAY | PROVIDERS: PCP Internal Medicine; Visit Provider Radiology Diagnostic Radiology | DX: R92.8 Other abnormal and inconclusive findings on diagnostic imaging of breast (principal) | CPT/HCPCS: 76642; 77065; G0279 ==

== ENCOUNTER 2024-11-11 18:23 | Emergency (ER) | payer OTHER, SELFPAY ==
--- NOTE | ~2024-11-11 | CT_ITS ---
EXAMINATION: CT OF THE HEAD WITHOUT CONTRAST CT OF THE CERVICAL SPINE WITHOUT CONTRAST CLINICAL INFORMATION: Fall.. COMPARISON: Cervical spine films dated 08/22/2022. TECHNIQUE: Contiguous axial imaging was performed from the skullbase to vertex without intravenous administration of contrast. Coronal reformations of the head were obtained. Contiguous axial imaging was then performed from the skull base down to the thoracic inlet. Coronal and sagittal reformations of the cervical spine were obtained. This CT examination was performed using dose optimization techniques as appropriate, variously including the following: *Automated exposure control *Adjustment of mA and/or kV according to patient size (this includes techniques or standardized protocols for targeted exams where dose is matched to indication/reason for exam; i.e. extremities or head) *Use of iterative reconstruction technique DLP: 1114 mGy-cm. FINDINGS: CT scan of the head: There is no evidence of acute intracranial hemorrhage or territorial infarction. No abnormal mass-effect or midline shift is seen. Jhaveri to white matter differentiation is well preserved. No extra-axial fluid collections are identified. The ventricles and sulci are minimally enlarged. There is no abnormal attenuation within the brain parenchyma. Calcification of the carotid siphons is seen. The osseous structures and soft tissues are normal. The mastoid air cells and visualized portions of the paranasal sinuses are well-aerated. There is a convex right nasal septal deviation with prominent bony spur seen projecting into the right nasal passages at the level of the middle turbinate. CT scan of the cervical spine: Normal alignment is seen with no evidence of acute fracture or dislocation. Craniocervical junction and atlantoaxial articulations are intact. Prevertebral soft tissues are normal in thickness. There is relative preservation of the disc space height. Minimal vertebral spondylosis is seen diffusely throughout the cervical spine. The included soft tissues of the neck and lung apices are unremarkable. CT/CT head/brain wo IV con IMPRESSION: CT SCAN OF THE HEAD: No acute intracranial pathology. CT SCAN OF THE CERVICAL SPINE: No evidence of cervical spine fracture or malalignment. Electronically signed by: Jigna López MD 11/11/2024 09:05 PM [facility] [place]
--- NOTE | ~2024-11-11 | XR_ITS ---
EXAMINATION: LEFT SHOULDER, LEFT HUMERUS, RIGHT KNEE CLINICAL INFORMATION: Fall with shoulder, arm and knee pain COMPARISON: Right knee 04/12/2022 left shoulder 05/07/2020 TECHNIQUE: 3 views left shoulder, 2 views left humerus, 2 views right knee FINDINGS: Left shoulder or left humerus Some minimal degenerative changes are present at the glenohumeral joint. No fractures, dislocations or bony destructive lesions. No rotator cuff calcifications. The humerus otherwise appears unremarkable without evidence of a fracture. Right knee: Right total knee prosthesis is present. The prosthesis appears in good position. No evidence of a traumatic injury. XR/XR humerus LT IMPRESSION: 1. No evidence of an acute traumatic injury. 2. Right total knee prosthesis appears in good position. 3. Minimal degenerative changes left shoulder. Electronically signed by: Ronny Bejarano MD 11/11/2024 08:01 PM [facility]
--- NOTE | ~2024-11-11 | XR_ITS ---
EXAMINATION: LEFT SHOULDER, LEFT HUMERUS, RIGHT KNEE CLINICAL INFORMATION: Fall with shoulder, arm and knee pain COMPARISON: Right knee 04/12/2022 left shoulder 05/07/2020 TECHNIQUE: 3 views left shoulder, 2 views left humerus, 2 views right knee FINDINGS: Left shoulder or left humerus Some minimal degenerative changes are present at the glenohumeral joint. No fractures, dislocations or bony destructive lesions. No rotator cuff calcifications. The humerus otherwise appears unremarkable without evidence of a fracture. Right knee: Right total knee prosthesis is present. The prosthesis appears in good position. No evidence of a traumatic injury. XR/XR knee RT 2V IMPRESSION: 1. No evidence of an acute traumatic injury. 2. Right total knee prosthesis appears in good position. 3. Minimal degenerative changes left shoulder. Electronically signed by: Ronny Bejarano MD 11/11/2024 08:01 PM [facility]
--- NOTE | ~2024-11-11 | CT_ITS ---
EXAMINATION: CT OF THE HEAD WITHOUT CONTRAST CT OF THE CERVICAL SPINE WITHOUT CONTRAST CLINICAL INFORMATION: Fall.. COMPARISON: Cervical spine films dated 08/22/2022. TECHNIQUE: Contiguous axial imaging was performed from the skullbase to vertex without intravenous administration of contrast. Coronal reformations of the head were obtained. Contiguous axial imaging was then performed from the skull base down to the thoracic inlet. Coronal and sagittal reformations of the cervical spine were obtained. This CT examination was performed using dose optimization techniques as appropriate, variously including the following: *Automated exposure control *Adjustment of mA and/or kV according to patient size (this includes techniques or standardized protocols for targeted exams where dose is matched to indication/reason for exam; i.e. extremities or head) *Use of iterative reconstruction technique DLP: 1114 mGy-cm. FINDINGS: CT scan of the head: There is no evidence of acute intracranial hemorrhage or territorial infarction. No abnormal mass-effect or midline shift is seen. Jhaveri to white matter differentiation is well preserved. No extra-axial fluid collections are identified. The ventricles and sulci are minimally enlarged. There is no abnormal attenuation within the brain parenchyma. Calcification of the carotid siphons is seen. The osseous structures and soft tissues are normal. The mastoid air cells and visualized portions of the paranasal sinuses are well-aerated. There is a convex right nasal septal deviation with prominent bony spur seen projecting into the right nasal passages at the level of the middle turbinate. CT scan of the cervical spine: Normal alignment is seen with no evidence of acute fracture or dislocation. Craniocervical junction and atlantoaxial articulations are intact. Prevertebral soft tissues are normal in thickness. There is relative preservation of the disc space height. Minimal vertebral spondylosis is seen diffusely throughout the cervical spine. The included soft tissues of the neck and lung apices are unremarkable. CT/CT cervical spine wo IV con IMPRESSION: CT SCAN OF THE HEAD: No acute intracranial pathology. CT SCAN OF THE CERVICAL SPINE: No evidence of cervical spine fracture or malalignment. Electronically signed by: Jigna López MD 11/11/2024 09:05 PM [facility]
--- NOTE | ~2024-11-11 | XR_ITS ---
EXAMINATION: LEFT SHOULDER, LEFT HUMERUS, RIGHT KNEE CLINICAL INFORMATION: Fall with shoulder, arm and knee pain COMPARISON: Right knee 04/12/2022 left shoulder 05/07/2020 TECHNIQUE: 3 views left shoulder, 2 views left humerus, 2 views right knee FINDINGS: Left shoulder or left humerus Some minimal degenerative changes are present at the glenohumeral joint. No fractures, dislocations or bony destructive lesions. No rotator cuff calcifications. The humerus otherwise appears unremarkable without evidence of a fracture. Right knee: Right total knee prosthesis is present. The prosthesis appears in good position. No evidence of a traumatic injury. XR/XR shoulder LT min 2V IMPRESSION: 1. No evidence of an acute traumatic injury. 2. Right total knee prosthesis appears in good position. 3. Minimal degenerative changes left shoulder. Electronically signed by: Ronny Bejarano MD 11/11/2024 08:01 PM [facility]
[2024-11-11 18:38] VITALS: BP 134/88; PULSE 77; RESP 18; TEMP 36.7; O2SAT 98; BMI 32.3
--- NOTE | 2024-11-11 19:02 | ECG_ITS ---
Test Reason : FALL Blood Pressure : / mmHG Vent. Rate : 068 BPM Atrial Rate : 068 BPM P-R Int : 198 ms QRS Dur : 098 ms QT Int : 398 ms P-R-T Axes : 041 -38 011 degrees QTc Int : 423 ms Normal sinus rhythm Left axis deviation Abnormal ECG When compared with ECG of 05-FEB-2022 14:52, Questionable change in QRS axis ST no longer depressed in Lateral leads T wave inversion no longer evident in Lateral leads Referred By: Gabby Sauer Electronically Signed By:Chas Chauhan
--- NOTE | 2024-11-11 19:07 | ED_ITS ---
HPI - Fall General Chief Complaint: Fall Stated Complaint: WITNESSED FALL, SHOULDER PAIN, NO THINNERS/HS Time Seen by Provider: 11/11/24 18:36 Source: patient, family (Son), EMS and lead nuclear medicine technologist Mode of arrival: EMS Limitations: no limitations History of Present Illness ED Provider: DR. Sauer HPI Narrative: 69-year-old female brought in by ambulance for evaluation after she sustained a mechanical fall, patient was trying to get out of bed tripped on objects on the floor landing on her left side, sustained a head injury without LOC, complaining of severe left shoulder/arm pain, right knee pain. No CP, no SOB, no abdominal pain. Related Data Home Medications ?Medication ?Instructions ?Recorded ?Confirmed cholecalciferol (vitamin D3) 25 25 mcg PO DAILY 01/04/22 03/01/22 mcg (1,000 unit) capsule (Vitamin D3) levothyroxine 112 mcg tablet 112 mcg PO DAILY 01/04/22 03/01/22 (Synthroid) hydrochlorothiazide 12.5 mg tablet 18.75 mg PO DAILY 01/12/22 03/01/22 Previous Rx's ?Medication ?Instructions ?Recorded acetaminophen 325 mg tablet 650 mg (2 x 325 mg) PO Q6H PRN 01/19/22 Pain, Mild (Pain Scale 1-3) 30 days #240 tabs aspirin 325 mg tablet 325 mg PO BID 42 days #84 tabs 01/19/22 docusate sodium 100 mg capsule 100 mg PO BID 30 days #60 caps 01/19/22 diphenhydramine HCl 25 mg capsule 25 mg PO QID PRN allergy symptoms 02/01/22 (Benadryl) #30 caps hydrocortisone 2.5 % topical cream 1 appl topical QID PRN rash #30 02/01/22 grams hydroxyzine HCl 25 mg tablet 25 mg PO BEDTIME 14 days #14 tabs 02/01/22 prednisone 20 mg tablet 40 mg (2 x 20 mg) PO DAILY #8 tabs 02/01/22 diphenhydramine HCl 25 mg capsule 25 mg PO Q6H PRN allergic reaction 02/05/22 (Benadryl) #20 caps famotidine 20 mg tablet (Pepcid) 20 mg PO BID #20 tabs 02/05/22 diphenhydramine HCl 25 mg capsule 25 mg PO Q8H 5 days #15 caps 05/06/22 (Benadryl) epinephrine 0.3 mg/0.3 mL 0.3 mg (0.3 mL) IM ONCE PRN 03/23/22 injection, auto-injector (EpiPen) extreme reaction #1 ea famotidine 20 mg tablet (Pepcid) 20 mg PO BID 5 days #10 tabs 03/23/22 prednisone 20 mg tablet 40 mg (2 x 20 mg) PO DAILY #10 tabs 03/23/22 celecoxib 200 mg capsule 200 mg PO DAILY #30 caps 02/27/23 doxycycline hyclate 100 mg tablet 100 mg PO Q12H 7 days #14 tabs 01/10/24 prednisone 20 mg tablet 40 mg (2 x 20 mg) PO DAILY 5 days 01/10/24 #10 tabs Allergies Allergy/AdvReac Type Severity Reaction Status Date / Time No Known Allergies Allergy Verified 11/11/24 18:40 Review of Systems 2 Review of Systems: All other systems are reviewed and are negative Constitutional: Reports as per HPI and Reports no additional constitutional complaints Eyes: Reports as per HPI and Reports no additional eye complaints Reports system reviewed and no additional complaints, except as documented Cardiovascular: Reports as per HPI and Reports no additional cardiovascular complaints Respiratory: Reports as per HPI and Reports no additional respiratory complaints Gastrointestinal: Reports as per HPI and Reports no additional gastrointestinal complaints Genitourinary: Reports no additional female genitourinary complaints Musculoskeletal: Reports no additional musculoskeletal complaints Skin/Breast: Reports system reviewed and no additional complaints, except as docu Psychiatric: Reports no additional psychiatric complaints Endocrine: Reports no additional endocrine complaints Hematologic/Lymphatic: Reports no additional hematologic/lymphatic complaints Allergic/Immunologic: Reports no additional allergic/immunologic complaints Reports system reviewed and no additional complaints, except as documented and Reports Abnormal speech present [facility] Past Medical History Medical History H/O: HTN (hypertension) COVID-19 vaccine series completed Elevated cholesterol HTN (hypertension) Hypothyroid Osteoarthritis Chronic constipation Colon adenomas Surgical History Hx laparoscopic cholecystectomy Hx of cataract surgery History of total left knee replacement H/O colonoscopy Family History Family History Sister Cancer Social History Social History Household Members: Family Housing: Apartment Are you a primary district manager primary care sales to a significant other at home: No Do you presently have visiting nurse or other home services: Yes (son educational administration teacher) Alcohol intake: never Patient Tobacco Use Status: Never used Tobacco Advance Directives: Yes Advance Directives on File: Yes Advance Directives Date on File: 01/22/22 Do you have a plan to hurt others: No Plan service: No Current occupational status: disabled Physical Exam 2 Vital Signs: Vital Signs: Last Vital Signs Temp 97.9 F 11/11/24 20:31 Pulse 68 11/11/24 20:31 Resp 18 11/11/24 20:31 BP 134/78 11/11/24 20:31 Pulse Ox 96 11/11/24 20:31 O2 Del Method Room Air 11/11/24 20:31 BMI result Body Mass Index 32.3 Vital signs have been reviewed and appear to be correct. Blood pressure elevated. Heart rate normal. Respiratory rate normal. Temperature normal. Oxygen saturation normal. Appearance: Alert. Oriented X3. No acute distress. Head: Normal external exam. Normocephalic. Atraumatic. No Arora signs noted. No raccoon eyes noted Eyes: PERRLA. EOMI. Conjunctiva and sclera normal. Eyelids normal. ENT: TM's Normal. Pharynx normal. Uvula midline. Moist mucous membranes. No trismus noted. No drooling noted. No muffled voice noted. Neck: Normal inspection. Neck supple. FROM. No adenopathy. Thyroid Normal. No meningeal signs. No neck mass noted. CVS: Normal heart rate and rhythm. Heart sound normal. No murmurs noted. Pulses normal throughout. Respiratory: No respiratory distress. Painless inspiration. Breath sounds normal. No wheezes/rales/rhonchi noted. Chest nontender. No accessory muscle usage noted or decreased air movement noted. Abdomen: Soft and nontender. Bowel sounds normal in all 4 quadrants. No distention noted. No organomegaly noted. No visible injury noted. Back: No CVA tenderness. Full range of motion noted. Skin: Skin warm and dry. Normal skin color. Normal skin turgor. No rashes/lesions/lacerations noted. Extremities: No lower extremity edema. Extremities exhibit normal range of motion. Extremities nontender. Neuro: Oriented X 3. Cranial nerve exam: II-XII are grossly intact No motor deficit. No sensory deficit. Reflexes normal. Course Reevaluation(s) Reevaluation #1: S/p mechanical fall with left shoulder severe pain, physical exam/shoulder x-ray revealed no fracture or dislocation, GCS of 15 with normal neuro exam and unremarkable head CT. Will reassure the patient use NSAIDs/Tylenol if needed for pain at home. Time: 20:28 Medications Administered Discontinued Medications Generic Name Dose Route Start Last Admin Trade Name Freq PRN Reason Stop Dose Admin Hydromorphone HCl 1 mg 11/11/24 19:06 11/11/24 20:12 Hydromorphone Hcl 1 Mg/Ml Syringe IVPUSH 11/11/24 19:07 1 mg ONCE ONE Administration Protocol Ketorolac Tromethamine 15 mg 11/11/24 19:06 11/11/24 20:12 Ketorolac Tromethamine 15 Mg/Ml Vial IVPUSH 11/11/24 19:07 15 mg ONCE ONE Administration Medical Decision Making Differential Diagnosis Differential Diagnoses: The differential diagnosis associated with the presentation includes (Left shoulder fracture, left shoulder dislocation, left humerus fracture, right knee fracture, intracranial bleed, cervical spine injury, electrolyte derangement, severe anemia, ACS.) Admission/Observation Consideration of admission/observation: Escalation of care including admission/observation considered Lab Data MDM Lab Attestation statement: I reviewed the patient's lab results. 11/11/24 19:58 11/11/24 19:58 Labs: Lab Results 11/11/24 Range/Units 19:58 WBC 9.6 (4.8-10.8) X10*3/uL RBC 3.98 L (4.20-5.50) X10*6/uL Hgb 11.9 L (12.0-16.0) g/dl Hct 36.5 L (37.0-47.0) % MCV 91.7 (80.0-98.0) fL MCH 29.9 (27.0-33.0) pg MCHC 32.6 (31.0-35.0) g/dl RDW 14.6 (11.0-16.0) % Plt Count 291 (160-400) X10*3/uL MPV 8.4 L (9.4-12.3) fL Immature Gran % (Auto) 0.5 H (0.0-0.4) % Neut % (Auto) 75.2 H (45-73) % Lymph % (Auto) 14.8 L (20-40) % [place] % (Auto) 7.1 (2-11) % Eos % (Auto) 1.6 (0-4) % Baso % (Auto) 0.8 (0-2) % Lymph # (Auto) 1.4 (1.2-4.9) X10*3/uL [place] # (Auto) 0.7 (0.1-1.2) X10*3/uL Eos # (Auto) 0.2 (0.0-0.4) X10*3/uL Baso # (Auto) 0.1 (0.0-0.2) X10*3/uL Abs Immat Gran (auto) 0.05 H (0.00-0.03) X10*3/uL Absolute Neuts (auto) 7.2 (2.0-8.3) x10*3/uL Absolute Nucleated RBC 0.000 (0.0-0.012) X10*3/uL Nucleated RBC % (auto) 0.0 (0.0-0.2) /100WBC Sodium 142 (135-145) mmol/L Potassium 3.8 (3.3-5.1) mmol/L Chloride 105 (96-108) mmol/L Carbon Dioxide 29 (22-29) mmol/L Anion Gap 12 (12-20) BUN 22 H (9-16) mg/dL Creatinine 1.27 (0.5-1.4) mg/dL Estim Creat Clear Calc 46.1 Estimated GFR 41 Random Glucose 106 (60-115) mg/dL Calcium 9.3 D (8.4-10.2) mg/dL Total Bilirubin 0.5 (0.0-1.0) mg/dL Direct Bilirubin 0.2 (0.0-0.5) mg/dL AST 26 (5-31) U/L ALT 20 (0-31) U/L Alkaline Phosphatase 86 (39-117) U/L Troponin I High Sens < 2.7 (<3.5-17.0) ng/L Total Protein 7.4 (6.5-8.0) g/dL Albumin 3.8 (3.5-5.0) g/dL Lipase 35 (8-78) U/L Independent Interpretation I performed an independent interpretation of an: Plain X-Ray (Left shoulder/left humerus/right knee x-ray: No acute fracture) and CT Scan (CT head/cervical spine: No acute intracranial bleed or cervical spine injury.) Radiology Impression Discussion of test interpretation with radiology: I have reviewed the radiologist's reading. Discharge Plan Discharge Clinical Impression: Contusion of left shoulder, Contusion of arm, left, Closed head injury Patient Disposition: Home, Self-Care Instructions: Contusion in Adults (ED) Additional Instructions: Take Tylenol 500 mg or ibuprofen 200 mg tablet every 6 hours if needed for pain ([id number]). Prescriptions: No Action celecoxib 200 mg capsule 200 mg PO DAILY Qty: 30 0RF diphenhydramine HCl [Benadryl] 25 mg capsule 25 mg PO QID PRN (Reason: allergy symptoms) Qty: 30 0RF hydrocortisone 2.5 % cream 1 appl topical QID PRN (Reason: rash) Qty: 30 0RF prednisone 20 mg tablet 40 mg PO DAILY Qty: 8 0RF levothyroxine [Synthroid] 112 mcg Tablet 112 mcg PO DAILY cholecalciferol (vitamin D3) [Vitamin D3] 25 mcg (1,000 unit) Capsule 25 mcg PO DAILY hydrochlorothiazide 12.5 mg tablet 18.75 mg PO DAILY Rx Instructions: 1.5 TABS acetaminophen 325 mg Tablet 650 mg PO Q6H PRN (Reason: Pain, Mild (Pain Scale 1-3)) 30 Days Qty: 240 0RF aspirin 325 mg Tablet 325 mg PO BID 42 Days Qty: 84 0RF docusate sodium 100 mg Capsule 100 mg PO BID 30 Days Qty: 60 0RF famotidine [Pepcid] 20 mg tablet 20 mg PO BID Qty: 20 0RF diphenhydramine HCl [Benadryl] 25 mg capsule 25 mg PO Q6H PRN (Reason: allergic reaction) Qty: 20 0RF diphenhydramine HCl [Benadryl] 25 mg capsule 25 mg PO Q8H 5 Days Qty: 15 0RF prednisone 20 mg tablet 40 mg PO DAILY Qty: 10 0RF famotidine [Pepcid] 20 mg tablet 20 mg PO BID 5 Days Qty: 10 0RF epinephrine [EpiPen] 0.3 mg/0.3 mL auto-injector 0.3 mg IM ONCE PRN (Reason: extreme reaction) Qty: 1 0RF Rx Instructions: for 2 doses prednisone 20 mg tablet 40 mg PO DAILY 5 Days Qty: 10 0RF doxycycline hyclate 100 mg tablet 100 mg PO Q12H 7 Days Qty: 14 0RF hydroxyzine HCl 25 mg tablet 25 mg PO BEDTIME 14 Days Qty: 14 0RF Print Language: Georgian
[2024-11-11 20:01] LABS: MANUAL DIFF FLAG NO
[2024-11-11 20:08] LABS: Basophils Absolute Auto 0.1 X10*3/uL (0.0-0.2); Basophils Percent Auto 0.8 % (0-2); Eosinophils Absolute Auto 0.2 X10*3/uL (0.0-0.4); Eosinophils Percent Auto 1.6 % (0-4); Hematocrit 36.5 % (37.0-47.0); Hemoglobin 11.9 g/dl (12.0-16.0); Imm Gran Abs Auto 0.05 X10*3/uL (0.00-0.03); Imm Gran Pct Auto 0.5 % (0.0-0.4); Lymphocytes Absolute Auto 1.4 X10*3/uL (1.2-4.9); Lymphocytes Percent Auto 14.8 % (20-40); Mean Corpuscular HGB Conc 32.6 g/dl (31.0-35.0); Mean Corpuscular Hemoglobin 29.9 pg (27.0-33.0); Mean Corpuscular Volume 91.7 fL (80.0-98.0); Mean Platelet Volume 8.4 fL (9.4-12.3); Monocytes Absolute Auto 0.7 X10*3/uL (0.1-1.2); Monocytes Percent Auto 7.1 % (2-11); Neutrophils Absolute Auto 7.2 x10*3/uL (2.0-8.3); Neutrophils Percent Auto 75.2 % (45-73); Platelet Count 291 X10*3/uL (160-400); Red Blood Count 3.98 X10*6/uL (4.20-5.50); Red Cell Distribution Width 14.6 % (11.0-16.0); White Blood Count 9.6 X10*3/uL (4.8-10.8)
[2024-11-11] MEDS: HYDROmorphone HCl 1 MG/ML SYRINGE IVPUSH (20:12)
[2024-11-11] MEDS: Ketorolac Tromethamine 15 MG/ML VIAL IVPUSH (20:12)
[2024-11-11 20:23] LABS: Alanine Aminotransferase 20 U/L (0-31); Albumin Level 3.8 g/dL (3.5-5.0); Alkaline Phosphatase 86 U/L (39-117); Anion Gap 12 (12-20); Aspartate Amino Transferase 26 U/L (5-31); Bilirubin Direct 0.2 mg/dL (0.0-0.5); Bilirubin Total 0.5 mg/dL (0.0-1.0); Blood Urea Nitrogen 22 mg/dL (9-16); Calcium 9.3 mg/dL (8.4-10.2); Carbon Dioxide 29 mmol/L (22-29); Chloride 105 mmol/L (96-108); Creatinine Clr Calc Pharmacy 46.1; Estimated Glomerular Filt Rate 41; Glucose Random 106 mg/dL (60-115); Lipase 35 U/L (8-78); Potassium 3.8 mmol/L (3.3-5.1); Sodium 142 mmol/L (135-145); Total Protein 7.4 g/dL (6.5-8.0)
[2024-11-11 20:31] VITALS: BP 134/78; PULSE 68; RESP 18; TEMP 36.6; O2SAT 96
[2024-11-11 20:37] LABS: Troponin-I High Sensitivity < 2.7 ng/L (<3.5-17.0)
[2024-11-11 21:59] VITALS: BP 116/72; PULSE 61; RESP 16; TEMP 36.5; O2SAT 95
[2024-11-11 22:23] VITALS: BP 116/72; PULSE 61; RESP 16; TEMP 36.5; O2SAT 95
== END 2024-11-11 22:20 | disposition home or self-care (01) ==
PROVIDERS: Emergency Provider Emergency Medicine
DX: S40.012A Contusion of left shoulder, initial encounter (principal); S50.02XA Contusion of left elbow, initial encounter; S09.90XA Unspecified injury of head, initial encounter; R94.31 Abnormal electrocardiogram [ECG] [EKG]; M25.512 Pain in left shoulder; M25.561 Pain in right knee; W06.XXXA Fall from bed, initial encounter; Y93.89 Activity, other specified; Y92.003 Bedroom of unspecified non-institutional (private) residence as the place of occurrence of the external cause; Y99.8 Other external cause status; Z79.899 Other long term (current) drug therapy
CPT/HCPCS: 36415; 70450; 72125; 73030; 73060; 73560; 80048; 80076; 83690; 84484; 85025; 93005; 96374; 96375; 99284; 99285; J1171; J1885

== ENCOUNTER → 2024-11-11 19:02 | Outpatient (BNV) | payer OTHER, SELFPAY | PROVIDERS: Emergency Provider Emergency Medicine; Visit Provider Internal Medicine Cardiovascular Disease | DX: R94.31 Abnormal electrocardiogram [ECG] [EKG] (principal) | CPT/HCPCS: 93010 ==

== ENCOUNTER 2024-11-19 14:19 | Outpatient (REF) | payer OTHER, SELFPAY ==
[2024-11-19 16:00] LABS: MANUAL DIFF FLAG NO
[2024-11-19 16:09] LABS: Basophils Absolute Auto 0.1 X10*3/uL (0.0-0.2); Basophils Percent Auto 0.9 % (0-2); Eosinophils Absolute Auto 0.1 X10*3/uL (0.0-0.4); Eosinophils Percent Auto 1.9 % (0-4); Hemoglobin 12.4 g/dl (12.0-16.0); Imm Gran Abs Auto 0.02 X10*3/uL (0.00-0.03); Imm Gran Pct Auto 0.3 % (0.0-0.4); Lymphocytes Absolute Auto 1.7 X10*3/uL (1.2-4.9); Mean Corpuscular HGB Conc 32.6 g/dl (31.0-35.0); Mean Corpuscular Hemoglobin 29.9 pg (27.0-33.0); Mean Corpuscular Volume 91.6 fL (80.0-98.0); Mean Platelet Volume 8.7 fL (9.4-12.3); Monocytes Absolute Auto 0.5 X10*3/uL (0.1-1.2); Monocytes Percent Auto 7.2 % (2-11); Neutrophils Percent Auto 62.7 % (45-73); Platelet Count 308 X10*3/uL (160-400); Red Blood Count 4.15 X10*6/uL (4.20-5.50); Red Cell Distribution Width 14.6 % (11.0-16.0); White Blood Count 6.4 X10*3/uL (4.8-10.8)
[2024-11-19 16:25] LABS: Estimated Average Glucose 120 mg/dL; Hemoglobin A1C 131.8199 umol/L; Hemoglobin A1c % 5.8 % (<6.0); Total Hemoglobin (HGBA1C) 3264.6134 umol/L
[2024-11-19 16:39] LABS: Alanine Aminotransferase 15 U/L (0-31); Albumin Level 3.9 g/dL (3.5-5.0); Anion Gap 13 (12-20); Aspartate Amino Transferase 28 U/L (5-31); Bilirubin Total 0.7 mg/dL (0.0-1.0); Blood Urea Nitrogen 17 mg/dL (9-16); Calcium 9.6 mg/dL (8.4-10.2); Carbon Dioxide 29 mmol/L (22-29); Chloride 104 mmol/L (96-108); Cholesterol 155 mg/dL (<200); Estimated Glomerular Filt Rate > 60; Glucose Random 98 mg/dL (60-115); HDL Cholesterol 66 mg/dL (>40); LDL Cholesterol Calculated 77 mg/dL (<100); Potassium 3.7 mmol/L (3.3-5.1); Sodium 142 mmol/L (135-145); Total Protein 7.7 g/dL (6.5-8.0); Triglycerides 62 mg/dL (<150)
[2024-11-19 16:49] LABS: TSH reflex Free T4 0.73 uIU/mL (0.32-4.0)
[2024-11-19 16:51] LABS: Alkaline Phosphatase 80 U/L (39-117)
== END 2024-11-19 14:20 | disposition home or self-care (01) ==
LOC: HO.HHCL 14:19
PROVIDERS: Visit Provider Internal Medicine
DX: R73.03 Prediabetes (principal); E03.9 Hypothyroidism, unspecified
CPT/HCPCS: 36415; 80053; 80061; 83036; 84443; 85025

== ENCOUNTER 2024-12-17 18:47 | Emergency (ER) | payer OTHER, SELFPAY ==
--- NOTE | ~2024-12-17 | XR_ITS ---
CLINICAL HISTORY: pain 2 view chest x-ray Comparison: 01/10/2024 Findings: No consolidation or effusion. Heart size is normal. No acute fracture. IMPRESSION: 1. No acute findings. This document has been electronically signed by: Nehemiah Carcamo MD on 12/17/2024 19:26:39
--- NOTE | 2024-12-17 18:51 | ECG_ITS ---
Test Reason : CHEST PAIN Blood Pressure : */* mmHG Vent. Rate : 78 BPM Atrial Rate : 78 BPM P-R Int : 176 ms QRS Dur : 96 ms QT Int : 380 ms P-R-T Axes : 28 -56 20 degrees QTcB Int : 433 ms Normal sinus rhythm Left anterior fascicular block Minimal voltage criteria for LVH, may be normal variant ( [place] product ) Abnormal ECG When compared with ECG of 11-Nov-2024 19:40, No significant change was found Referred By: Clive Guaman Electronically Signed By: ELLEN PRATHER
[2024-12-17 19:15] LABS: MANUAL DIFF FLAG NO
[2024-12-17 19:17] VITALS: BP 149/73; PULSE 83; RESP 20; TEMP 35.9; O2SAT 97; BMI 35.9
[2024-12-17 19:17] LABS: Basophils Absolute Auto 0.1 X10*3/uL (0.0-0.2); Basophils Percent Auto 0.9 % (0-2); Eosinophils Absolute Auto 0.5 X10*3/uL (0.0-0.4); Eosinophils Percent Auto 6.6 % (0-4); Hematocrit 40.6 % (37.0-47.0); Hemoglobin 13.5 g/dl (12.0-16.0); Imm Gran Abs Auto 0.02 X10*3/uL (0.00-0.03); Imm Gran Pct Auto 0.3 % (0.0-0.4); Lymphocytes Absolute Auto 2.1 X10*3/uL (1.2-4.9); Lymphocytes Percent Auto 27.4 % (20-40); Mean Corpuscular HGB Conc 33.3 g/dl (31.0-35.0); Mean Corpuscular Hemoglobin 30.1 pg (27.0-33.0); Mean Corpuscular Volume 90.6 fL (80.0-98.0); Mean Platelet Volume 8.3 fL (9.4-12.3); Monocytes Absolute Auto 0.7 X10*3/uL (0.1-1.2); Neutrophils Absolute Auto 4.3 x10*3/uL (2.0-8.3); Neutrophils Percent Auto 55.8 % (45-73); Platelet Count 293 X10*3/uL (160-400); Red Blood Count 4.48 X10*6/uL (4.20-5.50); Red Cell Distribution Width 13.7 % (11.0-16.0); White Blood Count 7.8 X10*3/uL (4.8-10.8)
[2024-12-17 19:19] LABS: Appearance Urine Cloudy; Color Urine Yellow; Glucose Urine UA Negative (Negative); Leukocyte Esterase Urine Small (1+) (Negative); Nitrite Urine Negative (Negative); PH 6.5 (5.0-9.0); UMIC TRIGGER UACC YES; Urine Blood Negative (Negative); Urine Ketones Trace mg/dL (Negative); Urine Protein Negative (Neg-Trace)
[2024-12-17 19:23] LABS: INTERNATIONAL NORM RATIO 0.9 (0.9-1.1); Prothrombin Time 10.6 SEC (10.9-12.4)
[2024-12-17 19:29] LABS: Bacteria Urine 4+ (None Seen); RBC Urine 0-2 /HPF (0-2); Squamous Epithelial Cell Urine >20 /HPF (0-2); UACC Culture Trigger YES
[2024-12-17 19:37] LABS: Alanine Aminotransferase 22 U/L (0-31); Anion Gap 14 (12-20); Aspartate Amino Transferase 26 U/L (5-31); Bilirubin Total 0.5 mg/dL (0.0-1.0); Blood Urea Nitrogen 16 mg/dL (9-16); Calcium 9.5 mg/dL (8.4-10.2); Carbon Dioxide 26 mmol/L (22-29); Chloride 103 mmol/L (96-108); Creatinine Clr Calc Pharmacy 69.4; Estimated Glomerular Filt Rate > 60; Glucose Random 100 mg/dL (60-115); Lipase 23 U/L (8-78); Potassium 3.6 mmol/L (3.3-5.1); Sodium 139 mmol/L (135-145); Total Protein 8.3 g/dL (6.5-8.0)
[2024-12-17 19:40] LABS: Troponin-I High Sensitivity < 2.7 ng/L (<3.5-17.0)
[2024-12-17 20:10] LABS: Influenza A PCR NEGATIVE (Negative); Influenza B PCR NEGATIVE (Negative); Resp Syncy Virus RNA Qual PCR NEGATIVE (Negative); SARS COV2 PCR INHOUSE NEGATIVE (Negative)
[2024-12-17 20:27] LABS: Alkaline Phosphatase 97 U/L (39-117)
[2024-12-17 22:00] VITALS: O2SAT 97
[2024-12-17 22:04] VITALS: BP 148/91; PULSE 84; RESP 25; TEMP 36.7; O2SAT 96
--- NOTE | 2024-12-18 00:41 | PC.NURSE ---
waiting for ED provider. family at bedside. no distress.
--- NOTE | 2024-12-18 01:33 | ED.GENADULT ---
HPI - General Adult General Chief complaint: Upper Respiratory Symptoms Stated complaint: Chest Pains Time Seen by Provider: 12/18/24 01:32 Source: patient and family Mode of arrival: ambulatory Limitations: no limitations History of Present Illness ED Provider: HPI narrative: Patient has been coughing for last 4 days with body aches dizziness cough is mostly dry patient does get similar symptoms every year no other family member sick Related Data Home Medications ?Medication ?Instructions ?Recorded ?Confirmed cholecalciferol (vitamin D3) 25 25 mcg PO DAILY 01/04/22 03/01/22 mcg (1,000 unit) capsule (Vitamin D3) levothyroxine 112 mcg tablet 112 mcg PO DAILY 01/04/22 03/01/22 (Synthroid) hydrochlorothiazide 12.5 mg tablet 18.75 mg PO DAILY 01/12/22 03/01/22 Previous Rx's ?Medication ?Instructions ?Recorded acetaminophen 325 mg tablet 650 mg (2 x 325 mg) PO Q6H PRN 01/19/22 Pain, Mild (Pain Scale 1-3) 30 days #240 tabs aspirin 325 mg tablet 325 mg PO BID 42 days #84 tabs 01/19/22 docusate sodium 100 mg capsule 100 mg PO BID 30 days #60 caps 01/19/22 diphenhydramine HCl 25 mg capsule 25 mg PO QID PRN allergy symptoms 02/01/22 (Benadryl) #30 caps hydrocortisone 2.5 % topical cream 1 appl topical QID PRN rash #30 02/01/22 grams hydroxyzine HCl 25 mg tablet 25 mg PO BEDTIME 14 days #14 tabs 02/01/22 prednisone 20 mg tablet 40 mg (2 x 20 mg) PO DAILY #8 tabs 02/01/22 diphenhydramine HCl 25 mg capsule 25 mg PO Q6H PRN allergic reaction 02/05/22 (Benadryl) #20 caps famotidine 20 mg tablet (Pepcid) 20 mg PO BID #20 tabs 02/05/22 diphenhydramine HCl 25 mg capsule 25 mg PO Q8H 5 days #15 caps 03/23/22 (Benadryl) epinephrine 0.3 mg/0.3 mL 0.3 mg (0.3 mL) IM ONCE PRN 03/23/22 injection, auto-injector (EpiPen) extreme reaction #1 ea famotidine 20 mg tablet (Pepcid) 20 mg PO BID 5 days #10 tabs 03/23/22 prednisone 20 mg tablet 40 mg (2 x 20 mg) PO DAILY #10 tabs 03/23/22 celecoxib 200 mg capsule 200 mg PO DAILY #30 caps 02/27/23 doxycycline hyclate 100 mg tablet 100 mg PO Q12H 7 days #14 tabs 01/10/24 prednisone 20 mg tablet 40 mg (2 x 20 mg) PO DAILY 5 days 01/10/24 #10 tabs albuterol sulfate 90 mcg/actuation 2 puff inhalation Q6H PRN 12/18/24 aerosol inhaler shortness of breath or wheezing #8.5 grams amoxicillin 875 mg-potassium 1 tab PO BID #20 tabs 12/18/24 clavulanate 125 mg tablet benzonatate 200 mg capsule 200 mg PO TID PRN cough #30 caps 12/18/24 prednisone 20 mg tablet 40 mg (2 x 20 mg) PO DAILY #10 tabs 12/18/24 Allergies Allergy/AdvReac Type Severity Reaction Status Date / Time No Known Allergies Allergy Verified 12/17/24 19:18 Review of Systems Review of Systems: Yes all other systems are reviewed and are negative PMFSH Past Medical History Medical History H/O: HTN (hypertension) COVID-19 vaccine series completed Elevated cholesterol HTN (hypertension) Hypothyroid Osteoarthritis Chronic constipation Colon adenomas Surgical History Hx laparoscopic cholecystectomy Hx of cataract surgery History of total left knee replacement H/O colonoscopy Family History Family History Sister Cancer Social History Social History Household Members: Family Housing: Apartment Are you a primary group care worker to a significant other at home: No Do you presently have visiting nurse or other home services: Yes (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 Oriented X3. No acute distress. Eyes: No pallor or icterus ENT: Pharynx normal. Oral Mucosa moist Neck: Normal inspection. Neck supple. CVS: Normal heart rate and rhythm. Pulses normal. Respiratory: No respiratory distress. Equal air entry bilateral, no wheezing/rales/rhonchi prolonged expiration with frequent dry cough Abdomen: Soft and nontender. Bowel sounds are present, no mass palpable, no CVA tenderness Skin: Skin warm and dry. Normal skin color. Normal skin turgor. Extremities: No lower extremity edema. No calf tenderness Neuro: Oriented X 3. No motor deficit. Medications Administered Discontinued Medications Generic Name Dose Route Start Last Admin Trade Name Freq PRN Reason Stop Dose Admin Albuterol Sulfate 2 puff 12/18/24 01:44 12/18/24 02:33 Albuterol Sulfate 90 Mcg 8 Gm Inhaler INHALE 12/18/24 01:45 2 puff ONCE ONE Administration Amoxicillin/Clavulanate Potassium 875 mg 12/18/24 01:44 12/18/24 01:56 Amoxicillin/Potassium Clav 875 Mg Tablet PO 12/18/24 01:45 875 mg ONCE ONE Administration Guaifenesin/Codeine Phosphate 10 ml 12/18/24 01:45 12/18/24 01:56 Guaifen/Codeine Sf 200/20/10ml 10 Ml Liquid PO 12/18/24 01:46 10 ml ONCE ONE Administration Prednisone 40 mg 12/18/24 01:44 12/18/24 01:56 Prednisone 20 Mg Tablet PO 12/18/24 01:45 40 mg ONCE ONE Administration Medical Decision Making Medical Decision Making MDM Narrative: Patient has acute bronchitis chest x-ray negative for pneumonia COVID flu negative labs were stable will prescribe inhaler and antibiotic for acute bronchitis Lab Data [facility] Lab Attestation statement: I reviewed the patient's lab results. 12/17/24 19:07 12/17/24 19:07 Labs: Lab Results 01/30/25 Range/Units 19:07 WBC 7.8 (4.8-10.8) X10*3/uL RBC 4.48 (4.20-5.50) X10*6/uL Hgb 13.5 (12.0-16.0) g/dl Hct 40.6 (37.0-47.0) % MCV 90.6 (80.0-98.0) fL MCH 30.1 (27.0-33.0) pg MCHC 33.3 (31.0-35.0) g/dl RDW 13.7 (11.0-16.0) % Plt Count 293 (160-400) X10*3/uL MPV 8.3 L (9.4-12.3) fL Immature Gran % (Auto) 0.3 (0.0-0.4) % Neut % (Auto) 55.8 (45-73) % Lymph % (Auto) 27.4 (20-40) % [place] % (Auto) 9.0 (2-11) % Eos % (Auto) 6.6 H (0-4) % Baso % (Auto) 0.9 (0-2) % Lymph # (Auto) 2.1 (1.2-4.9) X10*3/uL [place] # (Auto) 0.7 (0.1-1.2) X10*3/uL Eos # (Auto) 0.5 H (0.0-0.4) X10*3/uL Baso # (Auto) 0.1 (0.0-0.2) X10*3/uL Abs Immat Gran (auto) 0.02 (0.00-0.03) X10*3/uL Absolute Neuts (auto) 4.3 (2.0-8.3) x10*3/uL Absolute Nucleated RBC 0.000 (0.0-0.012) X10*3/uL Nucleated RBC % (auto) 0.0 (0.0-0.2) /100WBC PT 10.6 L (10.9-12.4) SEC INR 0.9 (0.9-1.1) Sodium 139 (135-145) mmol/L Potassium 3.6 (3.3-5.1) mmol/L Chloride 103 (96-108) mmol/L Carbon Dioxide 26 (22-29) mmol/L Anion Gap 14 (12-20) BUN 16 (9-16) mg/dL Creatinine 0.74 (0.5-1.4) mg/dL Estim Creat Clear Calc 69.4 Estimated GFR > 60 Random Glucose 100 (60-115) mg/dL Calcium 9.5 (8.4-10.2) mg/dL Total Bilirubin 0.5 (0.0-1.0) mg/dL AST 26 (5-31) U/L ALT 22 (0-31) U/L Alkaline Phosphatase 97 (39-117) U/L Troponin I High Sens < 2.7 (<3.5-17.0) ng/L Total Protein 8.3 H (6.5-8.0) g/dL Albumin 4.0 (3.5-5.0) g/dL Lipase 23 (8-78) U/L Urine Color Yellow Urine Appearance Cloudy Urine pH 6.5 (5.0-9.0) Ur Specific [place] 1.020 (1.005-1.025) Urine Protein Negative (Neg-Trace) mg/dL Urine Glucose (UA) Negative (Negative) mg/dL Urine Ketones Trace (Negative) mg/dL Urine Blood Negative (Negative) Urine Nitrite Negative (Negative) Ur Leukocyte Esterase Small (1+) H (Negative) Urine RBC 0-2 (0-2) /HPF Urine WBC 11-20 H (0-5) /HPF Ur Squamous Epith Cells >20 (0-2) /HPF Urine Bacteria 4+ (None Seen) Hyaline Casts 3-5 (0-2) /LPF Influenza Type A (PCR) NEGATIVE (Negative) Influenza Type B (PCR) NEGATIVE (Negative) RSV RNA Qual (PCR) NEGATIVE (Negative) SARS-CoV-2 RNA (RT-PCR) NEGATIVE (Negative) Independent Interpretation I performed an independent interpretation of an: Plain X-Ray Radiology Impression Discussion of test interpretation with radiology: I have reviewed the radiologist's reading. Radiologist Impression: NAD Discharge Plan Discharge Clinical Impression: Bronchitis Patient Disposition: Home, Self-Care Instructions: Acute Bronchitis (ED) Additional Instructions: Take medications and inhaler as prescribed Follow with your PCP if not better Prescriptions: New benzonatate 200 mg capsule 200 mg PO TID PRN (Reason: cough) Qty: 30 0RF amoxicillin-pot clavulanate 875-125 mg tablet 1 tab PO BID Qty: 20 0RF prednisone 20 mg tablet 40 mg PO DAILY Qty: 10 0RF albuterol sulfate 90 mcg/actuation HFA aerosol inhaler 2 puff inhalation Q6H PRN (Reason: shortness of breath or wheezing) Qty: 8.5 0RF No Action celecoxib 200 mg capsule 200 mg PO DAILY Qty: 30 0RF diphenhydramine HCl [Benadryl] 25 mg capsule 25 mg PO QID PRN (Reason: allergy symptoms) Qty: 30 0RF hydrocortisone 2.5 % cream 1 appl topical QID PRN (Reason: rash) Qty: 30 0RF prednisone 20 mg tablet 40 mg PO DAILY Qty: 8 0RF levothyroxine [Synthroid] 112 mcg Tablet 112 mcg PO DAILY cholecalciferol (vitamin D3) [Vitamin D3] 25 mcg (1,000 unit) Capsule 25 mcg PO DAILY hydrochlorothiazide 12.5 mg tablet 18.75 mg PO DAILY Rx Instructions: 1.5 TABS acetaminophen 325 mg Tablet 650 mg PO Q6H PRN (Reason: Pain, Mild (Pain Scale 1-3)) 30 Days Qty: 240 0RF aspirin 325 mg Tablet 325 mg PO BID 42 Days Qty: 84 0RF docusate sodium 100 mg Capsule 100 mg PO BID 30 Days Qty: 60 0RF famotidine [Pepcid] 20 mg tablet 20 mg PO BID Qty: 20 0RF diphenhydramine HCl [Benadryl] 25 mg capsule 25 mg PO Q6H PRN (Reason: allergic reaction) Qty: 20 0RF diphenhydramine HCl [Benadryl] 25 mg capsule 25 mg PO Q8H 5 Days Qty: 15 0RF prednisone 20 mg tablet 40 mg PO DAILY Qty: 10 0RF famotidine [Pepcid] 20 mg tablet 20 mg PO BID 5 Days Qty: 10 0RF epinephrine [EpiPen] 0.3 mg/0.3 mL auto-injector 0.3 mg IM ONCE PRN (Reason: extreme reaction) Qty: 1 0RF Rx Instructions: for 2 doses prednisone 20 mg tablet 40 mg PO DAILY 5 Days Qty: 10 0RF doxycycline hyclate 100 mg tablet 100 mg PO Q12H 7 Days Qty: 14 0RF hydroxyzine HCl 25 mg tablet 25 mg PO BEDTIME 14 Days Qty: 14 0RF Interventions: ED Discharge Assessment Last Done: 12/18/24 02:32 Discharge Date/Time: 12/18/24 02:46 Print Language: Congolese
[2024-12-18] MEDS: guaiFEN/Codeine SF 200/20/10ML 10 ML LIQUID PO (01:56)
[2024-12-18] MEDS: Amoxicillin/Potassium Clav 875 MG TABLET PO (01:56)
[2024-12-18] MEDS: predniSONE 20 MG TABLET 40 MG PO (01:56)
[2024-12-18 02:27] VITALS: BP 151/92; PULSE 68; RESP 16; TEMP 36.6; O2SAT 96
[2024-12-18 02:32] VITALS: BP 151/92; PULSE 68; RESP 16; TEMP 36.6; O2SAT 96
[2024-12-18] MEDS: Albuterol Sulfate 90 MCG 8 GM INHALER 2 PUFF INHALE (02:33)
== END 2024-12-18 02:46 | disposition home or self-care (01) ==
PROVIDERS: Physician Assistant; Emergency Provider Internal Medicine; PCP Internal Medicine
DX: J20.9 Acute bronchitis, unspecified (principal); I44.4 Left anterior fascicular block; R05.9 Cough, unspecified; R42 Dizziness and giddiness; R79.1 Abnormal coagulation profile; I10 Essential (primary) hypertension; E78.5 Hyperlipidemia, unspecified; E03.9 Hypothyroidism, unspecified; Z03.818 Encounter for observation for suspected exposure to other biological agents ruled out; Z79.899 Other long term (current) drug therapy; Z79.82 Long term (current) use of aspirin
CPT/HCPCS: 0241U; 36415; 71046; 80053; 81001; 83690; 84484; 85025; 85610; 87086; 93005; 99284; 99285

== ENCOUNTER → 2024-12-17 18:51 | Outpatient (BNV) | payer OTHER, SELFPAY | PROVIDERS: Emergency Provider Internal Medicine; PCP Internal Medicine; Visit Provider Internal Medicine | DX: I44.4 Left anterior fascicular block (principal); I42.2 Other hypertrophic cardiomyopathy | CPT/HCPCS: 93010 ==

== ENCOUNTER → 2024-12-17 18:52 | Outpatient (BNV) | payer OTHER, SELFPAY | PROVIDERS: PCP Internal Medicine; Visit Provider Specialist | DX: R07.9 Chest pain, unspecified (principal) | CPT/HCPCS: 71046 ==

== ENCOUNTER 2025-02-02 14:48 | Outpatient (REF) | payer OTHER, SELFPAY ==
--- NOTE | 2025-02-02 14:54 | PFT_ITS ---
Flows: FEV1: 106 % of predicted at 2.07 L FVC: 99 % of predicted at 2.47 L FEV1/FVC: 84 % Bronchodilator response: Present in small to medium airways only Volumes: Total lung capacity: 83 % of predicted at 3.71 L Residual volume: 71 % of predicted at 1.27 L Slow vital capacity: 93 % of predicted at 2.44 L Expiratory reserve volume: 22 % of predicted at 0.14 L Diffusion capacity: Normal Impression: No obstructive or restrictive ventilatory defect. Bronchodilator response is present in small to medium airways only. Decreased expiratory reserve volume suggests extrathoracic restriction likely secondary to abdominal obesity. MTDD
[2025-02-02 15:27] VITALS: PULSE 63
--- OUTSIDE RECORDS SUMMARY | 2025-02-02 17:36 | XMS_ITS | Data Portability ---
Author Organization [employer] Address [address] [place] [id number] Care Team Providers Care Skein Bleacher Name Role Phone [facility] Referring Provider [phone] Assessment Encounter Date Assessment Date Assessment LastModified by Organization Details LastModified Time 07/26/2022 07/26/2022 service called for COBIAN found 67 sam with hx COBIAN c/o bilateral COBIAN >1 wk no new neurodeficit no new light/sound sensitivity VS significant for afebrile, BP slightly elevated Very unlikely COBIAN related to BP More likely typical tension COBIAN -improved to IM tordol return to primary team notify service if no improvement [email or web address] Not available 07/26/2022 23:45:52 Plan of Treatment Reminders Order Date Submit Date Provider Last Modified By Organization Details Last Modified Time Details Appointments None record ed. Lab None record ed. Referral None record ed. Procedures None record ed. Surgeries None record ed. Imaging None record ed. Medication Orders None record ed. Patient TargetsNo targets recorded. Patient InstructionsNo instructions recorded. Reason for Referral None Reported. Medical Equipment None Reported. Medications Name Sig Start Date Stop Date Status Note LastModified by Organization Details LastModified Time celecoxib 200 mg capsule TAKE 1 CAPSULE ORALLY DAILY active Not Available Not Available No t Available cyclobenzapri ne 10 mg tablet TAKE 1 TABLET BY MOUTH THREE TIMES A DAY active Not Available Not Available No t Available tizanidine 2 mg tablet TAKE 2 TABLETS (4 MG) BY MOUTH EVERY 8 (EIGHT) HOURS IF NEEDED FOR MUSCLE SPASMS. active Not Available Not Available No t Available cetirizine 10 mg tablet TAKE 1 TABLET BY MOUTH EVERYDAY AT BEDTIME active Not Available Not Available N ot Available ibuprofen 800 mg tablet TAKE 1 TABLET (800 MG) BY MOUTH EVERY 8 (EIGHT) HOURS IF NEEDED FOR MILD PAIN FOR UP TO 20 DAYS. active Not Available Not Available No t Available acetaminophen ER 650 mg tablet,extend ed release TAKE 1 TABLET (650 MG) BY MOUTH EVERY 8 (EIGHT) HOURS IF NEEDED FOR MILD PAIN. active Not Available Not Available N ot Available betamethasone valerate 0.1 % topical cream APPLY TOPICALLY IF NEEDED IN THE MORNING AND AT BEDTIME (DRYNESS). active Not Available Not Available N ot Available clotrimazole- betamethasone 1 %-0.05 % topical cream APPLY TOPICALLY 2 TIMES DAILY FOR 28 DAYS. active Not Available Not Available No t Available hydrochloroth iazide 25 mg tablet TAKE 1 TABLET BY MOUTH EVERY DAY IN THE MORNING active Not Available Not Available No t Available fluocinonide 0.05 % topical cream active Not Available Not Availabl e Not Available clotrimazole 1 % topical cream APPLY TO AFFECTED AREA TWICE A DAY IN THE MORNING AND IN THE EVENING active Not Available Not Available No t Available levothyroxine 112 mcg tablet TAKE 1 TABLET BY MOUTH EVERY DAY active Not Available Not Available No t Available amoxicillin 875 mg-potassium clavulanate 125 mg tablet TAKE 1 TABLET BY MOUTH TWICE A DAY FOR 10 DAYS active Not Available Not Available No t Available Vitamin D3 25 mcg (1,000 unit) capsule TAKE 1 CAPSULE BY MOUTH EVERY DAY active Not Available Not Available No t Available diclofenac 1 % topical gel APPLY 2 GRAMS TO AFFECTED AREA 3 TIMES A DAY active Not Available Not Available No t Available Vitals Date Recorded Oxygen saturation Oxygen saturation in Arterial blood by Pulse oximetry Respiratory rate Body height Heart rate Body temperature Body weight Respiratory rate Heart rate Body temperature Body height Oxygen saturation Oxygen saturation in Arterial blood by Pulse oximetry Body weight Systolic blood pressure Diastolic blood pressure Systolic blood pressure Diastolic blood pressure Provider Name and Address Organization Details Last Updated DateTime 2 98 % 98 % 18 /min 154.94 cm 75 /min 98 [degF] 19471.7 04 g 18 /min 75 /min 98 [degF] 154.94 cm 98 % 98 % 98833.7 04 g 138 mm[Hg] 86 mm[Hg] 138 mm[Hg] 86 mm[Hg] Not Available [employer] 2 17:54:54 Social History None recorded. Functional Status None recorded. Mental Status None recorded. Family History Nothing Reported. Medical History No medical history recorded. Gynecological HistoryNo gynecological history recorded. Obstetrics History GPAL:G 0 P 0 0 0 0 Past Encounters Encounter ID Performer Location Encounter Start Date Encounter Closed Date Diagnosis/Indication Diagnosis SNOMED-CT Code Diagnosis ICD10 Code Diagnosis Note [id number] Richard Álvarez MD [address] [phone] 07/26/2022 17:33:04 08/10/2022 13:06:41 Tension-type headache 132736518 G44.209 Health Concerns Section Related Observation LastModified by Organization [place] LastModified Time None Recorded Concern Status LastModified by Organization Details LastModified Time None Recorded Advance Directives Directive None Recorded Payers Encounter Date Sequence Insurance Name Policy Number Policy Vargas Covered Member ID Vargas Member ID Guarantor Name 07/26/2022 1 [facility] - DOS PRIOR TO 2023 - DUAL ELIGIBLE (MEDICARE REPLACEMENT/ADV ANTAGE - HMO) Roseline Nguyen [id number] Roseline Nguyen Notes Date Note Type Note Provider Name and Address Organization Details Recorded Time 07/26/2022 text/html HPI: ALLERGIC TO HYDROCODONE & OXYCODONE Patient with history of cervicalalgia. Reports severe headache with duration of 3 weeks now with pain in brain. No neuro deficit identified at time of call. .................. .................. .................. .................. .................. .................. .................. ............... CRC Nursing Assessment: Comments: CRC RN DID NOT NEED FURTHER INFO .................. .................. .................. .................. .................. .................. .................. ............... Film Reader Note: Sent to a call for a pt complaining of a headache. [facility] arrives on scene, pt is found sitting upright in chair. Pt is alert and oriented. Airway is patent. Pt speaks Vietnamese. Family serves as practice assistant. Pt complains of a headache radiating from upper back, shoulders, neck to head. Pt states pain is worse in the morning. Pt has been taking Motrin with little relief. Pt has a history of headaches, but the headaches this past week have been worse. Family has been attempting to schedule an appt with PCP, but they sent [facility]. Pt denies dizziness, photophobia, cp, sob, n/v/d, abd pain, fever, or loc. BP:138/86, P:75, RR:18, SpO2:98% RA, T:98.0; Lung sounds: clear bilaterally; Abd: soft, non-tender, no distention; Skin: pink, warm, dry; [facility] orders Ketorolac 30mg IM. Ketorolac administered without incident. Pt advised to follow up with PCP. Red flags discussed. Pt/family have no further questions. .................. .................. .................. .................. .................. .................. .................. ............... Disposition: Kanika Álvarez MD [address] [facility], [place], [address], [employer] 07/26/2022 23:46:10 OBGyn Episode No OBEpisode recorded.
== END 2025-02-02 14:49 | disposition home or self-care (01) ==
LOC: HO.RESP 14:48
PROVIDERS: PCP Internal Medicine; Visit Provider Internal Medicine
DX: J40 Bronchitis, not specified as acute or chronic (principal)
CPT/HCPCS: 94010; 94640; 94727; 94729

== ENCOUNTER → 2025-02-02 14:54 | Outpatient (BNV) | payer OTHER, SELFPAY | PROVIDERS: PCP Internal Medicine; Visit Provider Internal Medicine Pulmonary Disease | DX: J40 Bronchitis, not specified as acute or chronic (principal) | CPT/HCPCS: 94060; 94727; 94729 ==

== ENCOUNTER 2025-02-15 15:08 | Outpatient (RCR) | payer OTHER, SELFPAY | END 2025-03-05 10:47 | disposition home or self-care (01) | LOC: HO.PT 15:08 | PROVIDERS: PCP Internal Medicine; Visit Provider Internal Medicine | DX: M25.512 Pain in left shoulder (principal) | CPT/HCPCS: 97110; 97140; 97161; 97530 ==

== ENCOUNTER 2025-07-15 15:17 | Outpatient (REF) | payer OTHER, SELFPAY ==
--- OUTSIDE RECORDS SUMMARY | 2025-07-15 15:30 | XMS_ITS | Encounter Summary ---
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 Name Role Phone Ana Cristina Zhang MD Primary Care Provide r Encounter Details Date Type Department Care Team ([facility] st Contact Info) Description 07/15/2025 3:30 PM EDT Office Visit [facility] [address] [place], [place] [phone] Ana Cristina Zhang MD [address], [place] [phone] Colon cancer screening (Primary Dx); Prediabetes; Screening for colon cancer; Hypertension, unspecified type; Dietary counseling; Exercise counseling; Class 1 obesity due to excess calories with serious comorbidity and body mass index (BMI) of 34.0 to 34.9 in adult Social History Tobacco Use Types Packs/Day Years Used Date Smoking Tobacco: Never Passive Smoke Exposure: Never Smokeless Tobacco: Never Alcohol Use Standard Drinks/Week Comments Never 0 (1 standard drink = 0.6 oz pur e alcohol) Depression Answer Date Recorded Patient Health Questionnaire-9 Score 0 07/15/2025 Patient Health Questionnaire-9 Score 0 07/15/2025 Last PHQ-9: Questionnaire Data Not on file 0 07/15/2025 Housing Stability Answer Date Recorded What is your housing situation today? I have devorah moore 07/08/[address] you li ve. Do you have problems with any of the following? None of the above 07/08/2025 Food Insecurity Answer Date Recorded Within the past 12 months, y ou worried that your food would run out before you got money to buy more: Never True 07/08/2025 Within the past 12 months,th e food you bought just didn't last and you didn't have enough money to get more: Never True Transportation Answer Date Recorded In the past 12 months, has l ack of transportation kept you from medical appts, meetings, work or from getting things needed for daily living? No 07/08/2025 Utilities Answer Date Recorded In the past 12 months, has t he electric, gas, oil or water company threatened to shut off services in your home? No 07/08/2025 Depression Answer Date Recorded Patient Health Questionnaire-2 Score 0 07/15/2025 Internet Access Answer Date Recorded Internet Access Q1 Yes 07/08/2025 Internet Access Q2 Not on file 07/08/2025 Comments Unknown Sex and Gender Information Value Date Recorded Sex Assigned at Female 09/17/2022 10:14 AM EDT Legal Sex Female 10:14 AM EDT Gender Identity Female 09/17/2022 10:14 AM EDT Sexual Orientation Choose not to disclose 2021 10:14 AM EDT documented as of this encounter Last Filed Vital Signs Vital Sign Reading Time Taken Comments Blood Pressure 130/80 07/15/2025 2:53 PM EDT Pulse 70 07/15/2025 2:53 PM EDT Temperature 36.3 C (97.3 F) 07/15/2025 2:53 PM EDT Respiratory Rate 20 07/15/2025 2:53 PM EDT Oxygen Saturation - - Inhaled Oxygen Concentration - - Weight 89.4 kg (197 lb 3.2 oz) 07/15/2025 2:53 P M EDT Height 160 cm (5' 3 ) 07/15/2025 2:53 PM EDT Body Mass Index 34.93 07/15/2025 2:53 PM EDT documented in this encounter Functional Status * Over the past 2 weeks, how often have you been bothered by any of the following problems? Question Answer Date of Assessment Author Patient Health Questionnaire-2 Score 0 06/19 3:03 PM EDT Lorena Vazquez MA * Little interest or pleasure in doing things Answer Date of Assessment Author Not at all 07/15/2025 3:03 PM EDT Lorena Vazquez MA * Feeling down, depressed, or hopeless Answer Date of Assessment Author Not at all 07/15/2025 3:03 PM EDT Lorena Vazquez MA * Trouble falling or staying asleep, or sleeping too much Answer Date of Assessment Author Not at all 07/15/2025 3:03 PM EDT Lorena Vazquez MA * Feeling tired or having little energy Answer Date of Assessment Author Not at all 07/15/2025 3:03 PM EDT Lorena Vazquez MA * Poor appetite or overeating Answer Date of Assessment Author Not at all 07/15/2025 3:03 PM EDT Lorena Vazquez MA * Feeling bad about yourself - or that you are a failure or have let yourself or your family down Answer Date of Assessment Author Not at all 07/15/2025 3:03 PM EDT Lorena Vazquez MA * Trouble concentrating on things, such as reading the newspaper or watching television Answer Date of Assessment Author Not at all 07/15/2025 3:03 PM EDT Lorena Vazquez MA * Moving or speaking so slowly that other people could have noticed? Or the opposite - being so fidgety or restless that you have been moving around a lot more than usual. Answer Date of Assessment Author Not at all 07/15/2025 3:03 PM EDT Lorena Vazquez MA * Thoughts that you would be better off or hurting yourself in some way Answer Date of Assessment Author Not at all 07/15/2025 3:03 PM EDT Lorena Vazquez MA * Patient Health Questionnaire-9 Score Answer Date of Assessment Author 0 07/15/2025 3:03 PM EDT Lorena Vazquez MA * Over the last 2 weeks, how often have you been bothered by any of the following problems? Question Answer Date of Assessment Author Feeling nervous, anxious, or on edge 0 06/19 3:01 PM EDT Lorena Vazquez MA Not being able to stop or co ntrol worrying 0 07/15/2025 3:01 PM EDT Lorena Vazquez M A Worrying too much about diff erent things 0 07/15/2025 3:01 PM EDT Lorena Vazquez M A Trouble relaxing 0 07/15/2025 3:01 PM EDT Lorena Norwood MA Being so restless that it is hard to sit still 0 07/15/2025 3:01 PM EDT Lorena Vazquez M A Becoming easily annoyed or irritable 0 06/19 3:01 PM EDT Lorena Vazquez MA Feeling afraid as if somethi ng awful might happen 0 07/15/2025 3:01 PM EDT George Lorena Blaine Hedrick KALEN-7 Total Score 0 07/15/2025 3:01 PM EDT Lorena Vazquez MA documented as of this encounter Plan of Treatment Upcoming Encounters Date Type Department Care Team (Late st Contact Info) Description 10/11/2025 3:30 PM EST Office Visit [facility] [address] [place] [address] Ana Cristina Zhang MD [address] [place] [address] Scheduled Orders Name Type Priority Associated Diagnoses Orde r Schedule Cologuard colon cancer screening Lab Routine Screening for colon cancer Ordered: 07/15/2025 documented as of this encounter Procedures Procedure Name Priority Date/Time Associated Diagnosis Comments POCT GLYCATED HEMOGLOBIN, TOTAL Routine 07/15/2025 2:59 PM EDT Prediabetes POCT GLUCOSE Routine 07/15/2025 2:58 PM EDT Prediabetes documented in this encounter Results * (ABNORMAL) POCT HGB A1C (07/15/2025 2:59 PM EDT) Hemoglobin A1C 5.8(A) 4.0 - 5.7 % QC Media Lot # [id number] Lot# Expiration Date ,919,[id number] Blood 07/15/2025 2:59 PM EDT us Ana Cristina Jasso MD POINT OF CARE TEST ENTER/EDIT ORDERABLES Edited Result - Final * POCT Glucose (07/15/2025 2:58 PM EDT) Glucose Blood, POC 101 60 - 200 mg/dL Comment:fasting QC Media Lot # [id number] Lot# Expiration Date [id number] Blood Capillary blood specimen / Unknown 07/15/2025 2:58 PM EDT Ana Cristina Jasso MD POINT OF CARE TEST EN TER/EDIT ORDERABLES Final Result documented in this encounter Visit Diagnoses Diagnosis Colon cancer screening- Primary Special screening for malignant neoplasms, colon Prediabetes Other abnormal glucose Screening for colon cancer Special screening for malignant neoplasms, colon Hypertension, unspecified type Dietary counseling Dietary surveillance and counseling Exercise counseling Class 1 obesity due to excess calories with serious comorbidity and body mass index (BMI) of 34.0 to 34.9 in adult documented in this encounter Additional Health Concerns Assessment Noted Time PHQ-9 Depression Total Score: 0 07/15/20 25 3:03 PM EDT documented as of this encounter Care Teams Immersion Metal Cleaner Relationship Specialty Start Date End Date Ana Cristina Zhang MD [address] [place] [id number] PCP - General Family Medicine 07/30/18 documented as of this encounter
--- OUTSIDE RECORDS SUMMARY | 2025-07-15 15:51 | XMS_ITS | Clinical Summary ---
Author Organization [employer] Address [address] [facility] [address] [place] [address] Care Team Providers Care Quality Technician Fiberglass Name Role Phone Ana Cristina Zhang MD Primary Care Provide r Allergies Active Allergy Reactions Criticality Noted Date Comments Hydrocodone Angioedema High 03/02/2022 Oxycodone Angioedema 03/02/2022 Medications levothyroxine (Synthroid, Levoxyl) 112 MCG tablet 09/19/20 23 Active cholecalciferol (Vitamin D-3) 50 MCG (1999) capsuleIndication s:Osteopenia of multiple sites TAKE 1 CAPSULE (50 MCG) BY MOUTH IN THE MORNING 90 capsule 1 10/09/20 23 Active Spacer/Aero-Holdi ng Chambers (AeroChamber MV) inhalerIndication s:Acute URI Use as instructed 1 each 2 01/07/20 24 Active clotrimazole (Lotrimin) 1 % creamIndications: Intertrigo Apply topically 2 times daily. 60 g 1 05/19/20 24 Active fluticasone (Flonase) 50 MCG/ACT nasal sprayIndications: Seasonal allergies SPRAY 1 SPRAY INTO EACH NOSTRIL IN THE MORNING 48 mL 07/01/20 24 Active losartan-hydroCHL OROthiazide (Hyzaar) 50-12.5 MG tabletIndications :Hypertension, unspecified type TAKE 1 TABLET BY MOUTH EVERY DAY 90 tablet 3 11/04/20 24 Active levothyroxine (Synthroid, Levoxyl) 112 MCG tablet TAKE 1 TABLET BY MOUTH EVERY DAY 90 tablet 3 11/04/20 24 Active cyclobenzaprine (Flexeril) 10 MG tabletIndications :Acute pain of left shoulder Take 1 tablet (10 mg) by mouth 3 times daily for 10 days. 30 tablet 11/19/19 25 Active Blood Pressure Monitoring (Blood Pressure Cuff) miscIndications:E ssential hypertension 1 each Once daily. 1 each 11/19/19 25 Active cetirizine (ZyrTEC) 10 MG tabletIndications :Seasonal allergies TAKE 1 TABLET BY MOUTH EVERYDAY AT BEDTIME 90 tablet 12/10/19 25 Active halobetasol (UltraVATE) 0.05 % ointmentIndicatio ns:Psoriasis Apply topically 2 times daily. For 2 weeks 100 g 3 04/14/20 25 Active calcipotriene (Dovonex) 0.005 % ointmentIndicatio ns:Psoriasis Apply topically 2 times daily. For 2 weeks and alternate with Halobetasol 60 g 3 04/14/20 25 Active atorvastatin (Lipitor) 20 MG tabletIndications :Essential hypertension Take 1 tablet (20 mg) by mouth in the morning. 90 tablet 3 04/14/20 25 Active albuterol 108 (90 Base) MCG/ACT inhalerIndication s:Mild intermittent asthma with status asthmaticus Inhale 2 puffs every 6 (six) hours if needed for wheezing. 18 g 11 04/14/20 25 026 Active acetaminophen (Tylenol 8 Hour) 650 MG ER tabletIndications :Pain TAKE 1 TABLET (650 MG) BY MOUTH EVERY 8 (EIGHT) HOURS IF NEEDED FOR MILD PAIN. 60 tablet 05/25/20 25 Active cyclobenzaprine (Flexeril) 10 MG tabletIndications :Acute pain of left shoulder TAKE 1/2 TABLET (5 MG) BY MOUTH AT BEDTIME. 30 tablet 05/25/20 25 Active Diclofenac Sodium 1 % gelIndications:Ch ronic left shoulder pain APPLY TO AFFECTED AREA EVERY 12 HOURS IF NEEDED 100 g 1 05/25/20 25 Active RSV Pre-Fusion F A&B Vac Rcmb (Abrysvo) 120 MCG/0.5ML reconstituted solutionIndicatio ns:Prediabetes Inject 0.5 mL (120 mcg) into the muscle 1 (one) time for 1 dose. 0.5 mL 07/15/20 25 025 Active clotrimazole-beta methasone (Lotrisone) creamIndications: Intertrigo APPLY TOPICALLY 2 TIMES DAILY FOR 28 DAYS. 45 g 1 05/25/20 25 025 Active Problems Problem Noted Date Diagnosed Date Mild intermittent asthma 04/14/2025 Other fatigue 04/14/2025 Bronchitis 12/29/2024 Assessment & Plan (12/29/2024 1:00 PM EST): Seems to be improving but has residual bronchospasm. I went over the correct application of albuterol inhaler, she will do 2 puffs que 4 hours today and then continue que 6 hours x 1 week, then PRN. Order PFTs as pt has no Hx of asthma and presents with recurrent bronchitis every year. FU with PCP. Prediabetes 08/28/2024 Assessment & Plan (11/19/2024 2:05 PM EST): Today extensive discussion was done about life style modifications I advise healthy diet (low calorie) and cardiovascular exercise Assessment & Plan (08/28/2024 10:01 AM EDT): Today extensive discussion was done about life style modifications I advise healthy diet (low calorie) and cardiovascular exercise Viral upper respiratory tract infection 08/28/20 Assessment & Plan (08/28/2024 10:49 AM EDT): Drink plenty of fluids and rest Sore throat 03/26/2024 Assessment & Plan (03/26/2024 11:13 AM EDT): Rapid strep at office Folliculitis 12/27/2023 Seasonal allergies 09/27/2023 Colon cancer screening 07/12/2023 Osteopenia of multiple sites 07/12/2023 Acute otitis media 06/28/2023 Assessment & Plan (07/01/2023 4:37 PM EDT): DDx: otitis media, pharyngitis Treating empirically with augmentin due to signs/symptoms Currently afebrile. Counseled supportive measures including salt water gargles, cool drinks or ice/popsicles, humidifier, honey for sore throat, fluids, rest. Change toothbrush after 24h on antibiotic treatment. Continue to alternate Motrin/Tylenol q4h PRN. Should RTC PRN if symptoms worsen or fail to improve in 4 days. ED precautions reviewed. Neck pain 05/01/2023 Cutaneous hypersensitivity 05/01/2023 Chronic left shoulder pain 05/01/2023 Encounter for screening and preventative care Assessment & Plan (05/01/2023 10:31 AM EDT): Please refer to HPI Menopausal and perimenopausal disorder Psoriasis 05/01/2023 Polyarthralgia 05/01/2023 Intertrigo 05/01/2023 Essential hypertension 12/17/2022 Assessment & Plan (04/14/2025 4:45 PM EDT): I advised: - Aerobic exercise to reduce BP. Initial goal of 30 min walk 3-5x/week. Increase as tolerated. - low-sodium diet (goal: <2g/day) and heart healthy diet such as DASH to reduce BP and prevent ASCVD. - Home BP monitoring 1-2 x day with goal of <140/90. - Seek immediate medical attention for chest pain, palpitations, SOB, syncope, or sudden changes in mental status. - Do not change or discontinue current prescriptions without first consulting health care provider Assessment & Plan (12/29/2024 12:20 PM EST): Borderline controlled, could be related to recent Prednisone use. FU with PCP and continue same medications. Assessment & Plan (11/19/2024 4:28 PM EST): Blood pressure elevated likely because of pain I prescribed BP machine I instructed to log BP and report back C/w same medication regimen and low Na diet Assessment & Plan (05/19/2024 12:19 PM EDT): - Aerobic exercise to reduce BP. Initial goal of 30 min walk 3-5x/week. Increase as tolerated. - low-sodium diet (goal: <2g/day) and heart healthy diet such as DASH to reduce BP and prevent ASCVD. - Home BP monitoring 1-2 x day with goal of <140/90. - Seek immediate medical attention for chest pain, palpitations, SOB, syncope, or sudden changes in mental status. - Do not change or discontinue current prescriptions without first consulting health care provider Assessment & Plan (03/26/2024 11:12 AM EDT): - Aerobic exercise to reduce BP. Initial goal of 30 min walk 3-5x/week. Increase as tolerated. - low-sodium diet (goal: <2g/day) and heart healthy diet such as DASH to reduce BP and prevent ASCVD. - Home BP monitoring 1-2 x day with goal of <140/90. - Seek immediate medical attention for chest pain, palpitations, SOB, syncope, or sudden changes in mental status. - Do not change or discontinue current prescriptions without first consulting health care provider Assessment & Plan (12/27/2023 12:18 PM EST): Maintenance: BMP: up to date Lipid Panel: up to date ASCVD Risk: on atorvastatin 20mg daily - Aerobic exercise to reduce BP. Initial goal of 30 min walk 3-5x/week. Increase as tolerated. - low-sodium diet (goal: <2g/day) and heart healthy diet such as DASH to reduce BP and prevent ASCVD. - Home BP monitoring 1-2 x day with goal of <140/90. - Seek immediate medical attention for chest pain, palpitations, SOB, syncope, or sudden changes in mental status. - Do not change or discontinue current prescriptions without first consulting health care provider Assessment & Plan (09/27/2023 10:33 AM EST): Maintenance: BMP: up to date Lipid Panel: up to shanti e ASCVD Risk:I started patient on atorvastatin 20mg daily - Aerobic exercise to reduce BP. Initial goal of 30 min walk 3-5x/week. Increase as tolerated. - low-sodium diet (goal: <2g/day) and heart healthy diet such as DASH to reduce BP and prevent ASCVD. - Home BP monitoring 1-2 x day with goal of <140/90. - Seek immediate medical attention for chest pain, palpitations, SOB, syncope, or sudden changes in mental status. - Do not change or discontinue current prescriptions without first consulting health care provider Assessment & Plan (07/12/2023 2:20 PM EDT): - Aerobic exercise to reduce BP. Initial goal of 30 min walk 3-5x/week. Increase as tolerated. - low-sodium diet (goal: <2g/day) and heart healthy diet such as DASH to reduce BP and prevent ASCVD. - Home BP monitoring 1-2 x day with goal of <140/90. - Seek immediate medical attention for chest pain, palpitations, SOB, syncope, or sudden changes in mental status. - Do not change or discontinue current prescriptions without first consulting health care provider Assessment & Plan (05/01/2023 10:34 AM EDT): - Aerobic exercise to reduce BP. Initial goal of 30 min walk 3-5x/week. Increase as tolerated. - low-sodium diet (goal: <2g/day) and heart healthy diet such as DASH to reduce BP and prevent ASCVD. - Home BP monitoring 1-2 x day with goal of <140/90. - Seek immediate medical attention for chest pain, palpitations, SOB, syncope, or sudden changes in mental status. - Do not change or discontinue current prescriptions without first consulting health care provider Assessment & Plan (12/17/2022 8:09 PM EST): She's out of hydrochlorothiazide. Refill sent to pharmacy today Angioedema 12/17/2022 Vaginal wall prolapse 12/17/2022 Candidal intertrigo 12/17/2022 Assessment & Plan (12/17/2022 3:14 PM EST): On lower abd fold. Use clotrimazole cream bid x 1w Rash 12/17/2022 Assessment & Plan (12/17/2022 3:15 PM EST): She has a more widespread small desquamative rash that is reportedly chronic. RO psoriasis, fu with PCP Acute pain of left shoulder 12/17/2022 Assessment & Plan (01/13/2025 11:44 AM EST): Continue with acetaminophen as needed, continue with diclofenac gel twice a day as needed, and I will refill her Flexeril 10 mg at bedtime if needed I advised patient not to miss her sessions with PT Assessment & Plan (11/19/2024 4:29 PM EST): PT referral Acetaminophen 130mg Q 8hrs PRN Flexeril 10mg at bed time Diclofenac gel BID PRN Assessment & Plan (12/17/2022 3:14 PM EST): It seems to be suprascapular sprain. Use tylenol + Tizanidine Bid x 1w then prn only Avoid heat to affected area as it seems to be burnt by previous heat pad. Reconsult prn History of left knee replacement 02/18/2018 Hyperlipidemia 06/07/2015 Hypothyroidism 09/16/2012 Assessment & Plan (03/26/2024 11:12 AM EDT): TSH will be check with labs Osteoarthritis of knee 09/16/2012 Vitamin D deficiency 09/16/2012 Hypertension 09/16/2012 Assessment & Plan (08/28/2024 10:55 AM EDT): Maintenance: BMP: up to date Lipid Panel: up to date ASCVD Risk: 17% on atorvastatin 20mg daily -BP today high I discontinue hydrochlorothiazide and start her on hyzaar 12.5/50mg daily RTC nurse visit 2 weeks if BP not at goal plan is to increase the dose of this medication - Aerobic exercise to reduce BP. Initial goal of 30 min walk 3-5x/week. Increase as tolerated. - low-sodium diet (goal: <2g/day) and heart healthy diet such as DASH to reduce BP and prevent ASCVD. - Home BP monitoring 1-2 x day with goal of <140/90. - Seek immediate medical attention for chest pain, palpitations, SOB, syncope, or sudden changes in mental status. - Do not change or discontinue current prescriptions without first consulting health care provider Assessment & Plan (06/15/2024 3:49 PM EDT): -BP elevated in clinic today -pt denies symptoms, med compliance encouraged and advised daily home monitoring -follow-up with PCP Resolved Problems Problem Noted Date Diagnosed Date Resolved Date Class 2 severe obesity due t o excess calories with serious comorbidity in adult 09/27/20232024 Assessment & Plan (05/19/2024 12:19 PM EDT): Today extensive discussion was done about life style modifications I advise healthy diet (low calorie) and cardiovascular exercise Assessment & Plan (09/27/2023 10:34 AM EST): Today extensive discussion was done about life style modifications I advise healthy diet (low calorie) and cardiovascular exercise Encounters Date Type Department Care Team Description 07/15/2025 3:30 PM EDT Office Visit [address] [address] Ana Cristina Zhang MD Colon cancer screening (Primary Dx); Prediabetes; Screening for colon cancer; Hypertension, unspecified type; Dietary counseling; Exercise counseling; Class 1 obesity due to excess calories with serious comorbidity and body mass index (BMI) of 34.0 to 34.9 in adult 07/15/2025 Travel 07/14/[address] [address] Ana Cristina Zhang MD chart prep 07/08/2025 Patient Outreach [address] [address] Ana Cristina Zhang MD 05/24/[address] [address] Ana Cristina Zhang MD Polyarthralgia; Pain; Intertrigo; Acute pain of left shoulder; Chronic left shoulder pain 05/11/[address] [address] Ana Cristina Zhang MD Nurse Triage 05/05/[address] [address] Ana Cristina Zhang MD 04/14/2025 3:00 PM EDT Office Visit [address] [address] Ana Cristina Zhang MD Psoriasis; Essential hypertension; Intertrigo; Mild intermittent asthma with status asthmaticus; Chronic left shoulder pain; Other fatigue; Colon cancer screening 04/14/2025 Travel from Last 3 Months Immunizations Immunization Administration Dates Next Due Influenza High-dose Quadriva lent Preservative Free 09/27/2023,08/21/2022,09/28/2021,12/12 Influenza injectable quadriv alent IIV4 with preservative 09/26/2016,11/21/2015 Influenza injectable quadriv alent preservative free 10/17/2018,08/27/2017 Influenza, High Dose Seasona l, Preservative Free 08/28/2024,01/05/2020 Influenza, IIV3, injectable 08/03/2014 Influenza, Split (incl. bisi fied surface antigen) 09/21/2013,09/16/2012 MMR 09/28/2021,01/07/1998 Pfizer Covid-19 Vaccine 12+ 08/28/2024, 4 Pneumococcal Conjugate PCV 13 10/17/2018 Pneumococcal Polysaccharide PPSV23 09/28/2021 TD (adult), 2 Lf tetanus tox oid, preservative free, adsorbed 12/18/2005,07/11/1993 Td (adult), 5 Lf tetanus tox oid, preservative free, adsorbed 06/13/2013 Tdap 07/05/2023,06/13/2013,09/16/2012 Zoster, Recombinant 07/05/2023,05/02/2023 Zoster, live 08/03/2014 Social History Tobacco Use Types Packs/Day Years Used Date Smoking Tobacco: Never Passive Smoke Exposure: Never Smokeless Tobacco: Never Tobacco Cessation:Counseling Given: Not Answered Alcohol Use Standard Drinks/Week Comments Never 0 [...] not to disclose 2021 10:14 AM EDT Last Filed Vital Signs Vital Sign Reading Time Taken Comments Blood Pressure 130/80 07/15/2025 2:53 PM EDT Pulse 70 07/15/2025 2:53 PM EDT Temperature 36.3 C (97.3 F) 07/15/2025 2:53 PM EDT Respiratory Rate 20 07/15/2025 2:53 PM EDT Oxygen Saturation 97% 12/29/2024 11:48 AM EST Inhaled Oxygen Concentration - - Weight 89.4 kg (197 lb 3.2 oz) 07/15/2025 2:53 P M EDT Height 160 cm (5' 3 ) 07/15/2025 2:53 PM EDT Body Mass Index 34.93 07/15/2025 2:53 PM EDT Plan of Treatment Upcoming Encounters Date Type Department Care Team (Late st Contact Info) Description 10/11/2025 3:30 PM EST Office Visit [facility] [address], [place] [phone] Ana Cristina Zhang MD [address] [place], [place] [phone] Health Maintenance Due Date Last Done Comments CT Colonography 1955 FIT DNA/Cologuard 1955 FIT 1955 FOBT 1955 Sigmoidoscopy 1955 Hepatitis C Screening 1971 RSV Patients and Patients Aged 60 years or older (1 - Risk 60-74 years 1-dose series) 2013 Colonoscopy 02/17/2025 02/17/2021 Colorectal Cancer Screening 02/17/2025 COVID-19 Vaccine ( season) 2025 08/28/2024, 12/27/2023, 04/06/2021, Additional history exists Influenza Vaccine (#1) 2025 , 09/27/2023, 08/21/2022, Additional history exists Mammogram 10/12/2025 10/12/2024, 09/18, 09/20/2023, Additional history exists Diabetes: Hemoglobin A1C 10/15/2025 025, 11/19/2024, 03/26/2024, Additional history exists SDOH Screening 07/08/2026 07/08/2025 Alcohol/Substance Use Screening 07/15/2026 07/15/2025 Depression Screening 07/15/2026 07/15/2025, 07/15/20 Tobacco Screening 07/15/2026 07/15/2025 Lipid Panel 11/19/2029 11/19/2024, 05/0 07/2024, 05/01/2023, Additional history exists DTaP/Tdap/Td Vaccines (5 - Td or Tdap) 07/05/2033 07/05/2023, 06/13/2013, 06/13/2013, Additional history exists Pneumococcal Vaccine: 50+ Years Completed 09/28/2021, 10/17/2018 Zoster Vaccines Completed 07/05/2023, 04/18, 08/03/2014 HIB Vaccines Aged Out No longer eligi ble based on patient's age to complete this topic HPV Vaccines Aged Out No longer eligi ble based on patient's age to complete this topic Hepatitis A Vaccines Aged Out No long er eligible based on patient's age to complete this topic Hepatitis B Vaccines Aged Out No long er eligible based on patient's age to complete this topic IPV Vaccines Aged Out No longer eligi ble based on patient's age to complete this topic Meningococcal B Vaccine Aged Out No l onger eligible based on patient's age to complete this topic Meningococcal Vaccine Aged Out No michele pilar eligible based on patient's age to complete this topic RSV under 20 months Aged Out No longe r eligible based on patient's age to complete this topic Rotavirus Vaccines Aged Out No longer eligible based on patient's age to complete this topic Procedures Procedure Name Priority Date/Time Associated Diagnosis Comments POCT GLYCATED HEMOGLOBIN, TOTAL Routine 07/15/2025 2:59 PM EDT Prediabetes POCT GLUCOSE Routine 07/15/2025 2:58 PM EDT Prediabetes LIPID PANEL, STANDARD Routine 11/19/2024 2:22 PM EST Prediabetes BI US BREAST LIMITED LEFT Routine 10/12/2024 8:30 AM EST HM COLONOSCOPY Routine 02/17/2021 from Last 3 Months or Most Recently Relevant to Health Maintenance Results * (ABNORMAL) POCT HGB A1C (07/15/2025 2:59 PM EDT) Hemoglobin A1C 5.8(A) 4.0 - 5.7 % QC Media Lot # [id number] Lot# Expiration Date [id number] Blood 07/15/2025 2:59 PM EDT Ana Cristina Jasso MD POINT OF CARE TEST ENTER/EDIT ORDERABLES Edited Result - Final * POCT Glucose (07/15/2025 2:58 PM EDT) Glucose Blood, POC 101 60 - 200 mg/dL Comment:fasting QC Media Lot # [id number] Lot# Expiration Date [id number] Blood Capillary blood specimen / Unknown 07/15/2025 2:58 PM EDT Ana Cristina Jasso MD POINT OF CARE TEST EN TER/EDIT ORDERABLES Final Result * Lipid Panel, Standard (11/19/2024 2:22 PM EST) Triglycerides 62 <150 mg/dL [facility] Comment:Desirable Triglyceri de: less than 150 mg/dLBorderline High Triglyceride 150-199 mg/dLHigh Triglyceride: 200-499 mg/dLVery High Triglyceride: greater than or equal to 5OO mg/dL Cholesterol 155 <200 mg/dL [facility] Comment:Desirable Cholestero l: less than 200 mg/dLBorderline High Cholesterol: 200-239 mg/dLHigh Cholesterol: greater than 239 mg/dL LDL Cholesterol Calculated 77 <100 mg/dL [facility] Comment:Desirable LDL: less than 100 mg/dLNear Optimal/Above Optimal LDL: 110- 129 mg/dLBorderline High LDL: 130-159 mg/dLHigh LDL: 160-189 mg/dLVery High LDL: greater than or equal to 190 mg/dL HDL Cholesterol 66 >40 mg/dL [facility] Comment:Desirable HDL: great er than 40 mg/dL Note: This HDL assay may give artificially low results in patients with liver disease. Blood Venous blood specimen / Unknown 11/19/2024 2:22 PM EST 11/19/2024 3:58 PM EST us Ana Cristina Jasso MD LAB BLOOD ORDERABLES Final Result [facility] [address] [place] [address] [phone] * BI US Breast Limited Left (10/12/2024 8:30 AM EST) Anatomical Region Laterality Modality Breast Left Ultrasound 10/12/2024 8:30 AM EST Narrative 10/12/2024 8:45 AM EST [facility] [address] [place] [address] Ultrasound Report Signed Patient: Roseline Nguyen I MR#: [id number] : 1955 Acct:[id number] Age/Sex: 69 / F ADM Date: 10/12/24 Loc: HO.MAMMO Attending Dr: Ana Cristina Jasso MD Ordering Physician: Ana Cristina Zhang MD Date of Service: 10/12/24 Procedure(s): US breast LT limited mamm only Accession Number(s): [id number] cc: Ana Cristina Zhang MD EXAMINATION: MM DIAGNOSTIC DIGITAL BREAST TOMOSYNTHESIS, LEFT US BREAST LIMITED, LEFT MAMMOGRAPHY: CLINICAL INFORMATION: Diagnostic Exam: Evaluate focal asymmetry anterior one third of the left breast, lower inner aspect. COMPARISON: Mammography: 09/29/2024, and available priors. TECHNIQUE: Digital breast tomosynthesis is performed in both the craniocaudal and mediolateral oblique views along with computer-aided detection (CAD). Synthesized 2D images are generated from the tomosynthesis. FINDINGS: There are scattered areas of fibroglandular density (ACR BI-RADS breast composition Category b). The focal asymmetry in the lower, inner left breast, anterior one third, appears to represent a normal glandular island, with no definitive persistent mass, architectural distortion, or suspicious calcifications. We will evaluate this region with ultrasound. In review of prior mammograms, this area appears similar dating back to 2019. Secretory calcifications again noted, benign. ULTRASOUND: CLINICAL INFORMATION: Evaluate focal asymmetry anterior one third of the left breast, lower inner aspect. COMPARISON: None relevant. TECHNIQUE: Targeted sonographic evaluation was performed using a high frequency linear transducer. Selected archived documentation. FINDINGS: LEFT BREAST: There is a mixture of fatty and fibroglandular tissue. No suspicious mass is seen. There is no pathologic acoustic shadowing. There is no cystic abnormality. There is no correlate on ultrasound to the index mammographic abnormality, which appears to represent an island of normal tissue. US/US breast LT limited mamm only IMPRESSION: 1. There are no persistent findings suspicious for malignancy in the left breast. 2. Benign findings noted. 3. Recommend the patient return to routine annual screening mammography in one year. OVERALL ASSESSMENT: Mammography: BI-RADS 2 - Benign Findings Ultrasound: BI-RADS 2 - Benign Findings RECOMMENDATION: 1 year F/U This patient's information was entered into a reminder system with a target due date for their next mammogram. 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 [address] Ultrasound Report Signed Patient: Roseline Nguyen IMR#: [id number] : 1955cct:[id number] Age/Sex: 69 / FADM Date: 10/12/24 Loc: HO.MAMMO Attending Dr: Ana Cristina Jasso MD Ordering Physician: Ana Cristina Zhang MD Date of Service: 10/12/24 Procedure(s): US breast LT limited mamm only Accession Number(s): [id number] cc: Ana Cristina Zhang MD EXAMINATION: MM DIAGNOSTIC DIGITAL BREAST TOMOSYNTHESIS, LEFT US BREAST LIMITED, LEFT MAMMOGRAPHY: CLINICAL INFORMATION: Diagnostic Exam: Evaluate focal asymmetry anterior one third of the left breast, lower inner aspect. COMPARISON: Mammography: 09/29/2024, and available priors. TECHNIQUE: Digital breast tomosynthesis is performed in both the craniocaudal and mediolateral oblique views along with computer-aided detection (CAD). Synthesized 2D images are generated from the tomosynthesis. FINDINGS: There are scattered areas of fibroglandular density (ACR BI-RADS breast composition Category b). The focal asymmetry in the lower, inner left breast, anterior one third, appears to represent a normal glandular island, with no definitive persistent mass, architectural distortion, or suspicious calcifications. We will evaluate this region with ultrasound. In review of prior mammograms, this area appears similar dating back to 2019. Secretory calcifications again noted, benign. ULTRASOUND: CLINICAL INFORMATION: Evaluate focal asymmetry anterior one third of the left breast, lower inner aspect. COMPARISON: None relevant. TECHNIQUE: Targeted sonographic evaluation was performed using a high frequency linear transducer. Selected archived documentation. FINDINGS: LEFT BREAST: There is a mixture of fatty and fibroglandular tissue. No suspicious mass is seen. There is no pathologic acoustic shadowing. There is no cystic abnormality. There is no correlate on ultrasound to the index mammographic abnormality, which appears to represent an island of normal tissue. US/US breast LT limited mamm only IMPRESSION: 1. There are no persistent findings suspicious for malignancy in the left breast. 2. Benign findings noted. 3. Recommend the patient return to routine annual screening mammography in one year. OVERALL ASSESSMENT: Mammography: BI-RADS 2 - Benign Findings Ultrasound: BI-RADS 2 - Benign Findings RECOMMENDATION: 1 year F/U This patient's information was entered into a reminder system with a target due date for their next mammogram. Electronically signed by: John Ward MD 10/12/2024 08:41 AM EST Dictated By: John Ward MD Signed By: <Electronically signed by John Ward MD in OV> 10/12/24 0841 DD/ 0830 TD/TT: 10/12/24 0834 Assistant Grocery Store Manager: Ana Cristina Jasso MD IMG US PROCEDURES Fin al Result * Colonoscopy (02/17/2021) Colonoscopy Normal Normal Narrative Hazel Ulrich - 02/17/2021 Recommended 4 year follow up due to multiple adenomas Historical Provider HEALTH MAINTENANCE Final Result from Last 3 Months or Most Recently [id number] [facility] RESIDENTIAL OPTIONS (O D-SNP) KADEN DAVID [phone] Care Teams Quality Technician Fiberglass Relationship Specialty Start Date End Date Ana Cristina Zhang MD [address] [place] [phone] PCP - General Family Medicine 07/30/18
--- OUTSIDE RECORDS SUMMARY | 2025-07-15 15:51 | XMS_ITS | Encounter Summary ---
Author Organization [employer] Address 75 [facility] 7t [place] [address] Care Team Providers Care Lard Renderer Name Role Phone Ana Cristina Zhang MD Primary Care Provide r Reason for Visit * Reason Comments Med Refill Encounter Details Date Type Department Care Team (Late st Contact Info) Description 12/16/2024 Refill [facility] [address] [place], [place] [phone] [facility] [address] [place], [place] [phone] Acute URI Social History Tobacco Use Types Packs/Day Years Used Date Smoking Tobacco: Never Passive Smoke Exposure: Never Smokeless Tobacco: Never Alcohol Use Standard Drinks/Week Comments Never 0 (1 standard drink = 0.6 oz pur e alcohol) Depression Answer Date Recorded Patient Health Questionnaire-9 Score 0 05/19/2024 Patient Health Questionnaire-9 Score 0 05/19/2024 Last PHQ-9: Questionnaire Data Not on file 0 05/19/2024 Housing Stability Answer Date Recorded What is your housing situation today? I have devorah moore 05/08/[address] you li ve. Do you have problems with any of the following? None of the above 05/08/2024 Food Insecurity Answer Date Recorded Within the past 12 months, y ou worried that your food would run out before you got money to buy more: Never True 05/08/2024 Within the past 12 months,th e food you bought just didn't last and you didn't have enough money to get more: Never True Transportation Answer Date Recorded In the past 12 months, has l ack of transportation kept you from medical appts, meetings, work or from getting things needed for daily living? No 05/08/2024 Utilities Answer Date Recorded In the past 12 months, has t he electric, gas, oil or water company threatened to shut off services in your home? No 05/08/2024 Depression Answer Date Recorded Patient Health Questionnaire-2 Score 0 05/19/2024 Internet Access Answer Date Recorded Internet Access Q1 No 07/17/2024 Internet Access Q2 I do not want or need it 06/20 Comments Unknown Sex and Gender Information Value Date Recorded Sex Assigned at Female 09/17/2022 10:14 AM EDT Legal Sex Female 10:14 AM EDT Gender Identity Female 09/17/2022 10:14 AM EDT Sexual Orientation Choose not to disclose 2021 10:14 AM EDT documented as of this encounter Plan of Treatment Upcoming Encounters Date Type Department Care Team (Late st Contact Info) Description 10/11/2025 3:30 PM EST Office Visit [facility] [address] [place] [address] Ana Cristina Zhang MD [address] [place] [address] documented as of this encounter Visit Diagnoses Diagnosis Acute URI Acute upper respiratory infections of unspecified site documented in this encounter Additional Health Concerns Assessment Noted Time PHQ-9 Depression Total Score: 0 05/19/20 24 9:47 AM EDT documented as of this encounter Care Teams Lard Renderer Relationship Specialty Start Date End Date Ana Cristina Zhang MD [address] [place] [address] PCP - General Family Medicine 07/30/18 documented as of this encounter
--- OUTSIDE RECORDS SUMMARY | 2025-07-15 15:51 | XMS_ITS | Encounter Summary ---
Author Organization [employer] Address 75 [facility] 7t [place] [address] Care Team Providers Care Senior Visual Designer Name Role Phone Ana Cristina Zhang MD Primary Care Provide r Reason for Visit * Reason Comments Med Refill Encounter Details Date Type Department Care Team ([facility] st Contact Info) Description 12/16/2024 Refill [facility] [address] [place] [address] Ana Cristina Zhang MD [address] [place] [address] Acute pain of left shoulder; Pain Social History Tobacco Use Types Packs/Day Years [...] Description 10/11/2025 3:30 PM EST Office Visit [facility] [address] [place] [address] Ana Cristina Zhang MD [address] [place] [address] documented as of this encounter Visit Diagnoses Diagnosis Acute pain of left shoulder Pain Generalized pain documented in this encounter Additional Health Concerns Assessment Noted Time PHQ-9 Depression Total Score: 0 05/19/20 24 9:47 AM EDT documented as of this encounter Care Teams Senior Visual Designer Relationship Specialty Start Date End Date Ana Cristina Zhang MD [address] [place] [phone] PCP - General Family Medicine 07/30/18 documented as of this encounter
--- OUTSIDE RECORDS SUMMARY | 2025-07-15 15:51 | XMS_ITS | Encounter Summary ---
Author Organization [employer] Address 75 [facility] 7t [place] [address] Care Team Providers Care Wind Energy Engineer Name Role Phone Ana Cristina Zhang MD Primary Care Provide r Encounter Details Date Type Department Care Team (Latest Contact Info) Description 07/15/2025 Travel Social History Tobacco Use Types Packs/Day Years [...] AM EDT documented as of this encounter Functional Status * Over the [...] might happen 0 07/15/2025 3:01 PM EDT Lorena Vazquez M A KALEN-7 Total Score 0 07/15/2025 3:01 PM EDT Lorena Vazquez [place] documented as of this encounter Plan of Treatment Upcoming Encounters Date Type Department Care Team (Late st Contact Info) Description 10/11/2025 3:30 PM EST Office Visit [facility] 230 [place] [address] Ana Cristina Zhang MD [address] [place] [address] documented as of this encounter Visit Diagnoses Not on filedocumented in this encounter Additional Health Concerns Assessment Noted Time PHQ-9 Depression Total Score: 0 07/15/20 25 3:03 PM EDT documented as of this encounter Care Teams Wind Energy Engineer Relationship Specialty Start Date End Date Ana Cristina Zhang MD [address] [place] [address] PCP - General Family Medicine 07/30/18 documented as of this encounter
--- OUTSIDE RECORDS SUMMARY | 2025-07-15 15:51 | XMS_ITS | Encounter Summary ---
Author Organization [employer] Address [address] [place] [address] 7[place] [address] Care Team Providers Care Shear Scrapman Name Role Phone Ana Cristina Zhang MD Primary Care Provide r Reason for Visit * Reason Comments Med Refill Encounter Details Date Type Department Care Team (Late Contact Info) Description 03/19/2023 Refill [facility] [address] [place] [address] [facility] 230 [place] [address] Pain Social History Tobacco Use Types Packs/Day Years Used Date Smoking Tobacco: Never Smokeless Tobacco: Never Comments Unknown Sex and Gender Information Value [...] Description 10/11/2025 3:30 PM EST Office Visit [facility] [address] [place] [address] Ana Cristina Zhang MD [address] [place] [address] documented as of this encounter Visit Diagnoses Diagnosis Pain Generalized pain documented in this encounter Care Teams Shear Scrapman Relationship Specialty Start Date End Date Ana Cristina Zhang MD [address] [place] [phone] PCP - General Family Medicine 07/30/18 documented as of this encounter
--- OUTSIDE RECORDS SUMMARY | 2025-07-15 15:51 | XMS_ITS | Encounter Summary ---
Author Organization [employer] Address 75 [facility] 7t [place] [address] Care Team Providers Care Mortgage Closer Name Role Phone Ana Cristina Zhang MD Primary Care Provide r Reason for Visit * Reason Comments Med Refill Encounter Details Date Type Department Care Team ([facility] st Contact Info) Description 09/28/2023 Refill [facility] [place] [facility] 230 [place] [address] Ana Cristina Zhang MD 230 [place] [address] Psoriasis Social History Tobacco Use Types Packs/Day Years Used Date Smoking Tobacco: Never Passive Smoke Exposure: Never Smokeless Tobacco: Never Alcohol Use Standard Drinks/Week Comments Never 0 (1 standard drink = 0.6 oz pur e alcohol) Depression Answer Date Recorded Patient Health Questionnaire-9 Score 1 07/12/2023 Housing Stability Answer Date Recorded What is your housing situation today? I have devorahpolo moore 09/12/[address] you li ve. Do you have problems with any of the following? None of the above 09/12/2023 Food Insecurity Answer Date Recorded Within the past 12 months, y ou worried that your food would run out before you got money to buy more: Never True 09/12/2023 Within the past 12 months,th e food you bought just didn't last and you didn't have enough money to get more: Never True Transportation Answer Date Recorded In the past 12 months, has l ack of transportation kept you from medical appts, meetings, work or from getting things needed for daily living? No 09/12/2023 Utilities Answer Date Recorded In the past 12 months, has t he electric, gas, oil or water company threatened to shut off services in your home? No 09/12/2023 Depression Answer Date Recorded Patient Health Questionnaire-2 Score 1 07/12/2023 Comments Unknown Sex and Gender Information Value [...] Description 10/11/2025 3:30 PM EST Office Visit [facility] [place] [facility] [address] [place] [address] Ana Cristina Zhang MD [address] [place] [address] documented as of this encounter Visit Diagnoses Diagnosis Psoriasis Other psoriasis documented in this encounter Additional Health Concerns Assessment Noted Time PHQ-9 Depression Total Score: 1 07/12/20 23 1:45 PM EDT documented as of this encounter Care Teams Mortgage Closer Relationship Specialty Start Date End Date Ana Cristina Zhang MD [address] [place] [phone] PCP - General Family Medicine 07/30/18 documented as of this encounter
--- OUTSIDE RECORDS SUMMARY | 2025-07-15 15:51 | XMS_ITS | Encounter Summary ---
Author Organization [employer] Address 75 [facility] 7t [place] [address] Care Team Providers Care Food Service Utility Worker Name Role Phone Ana Cristina Zhang MD Primary Care Provide r Reason for Visit * Reason Comments Med Refill Encounter Details Date Type Department Care Team ([facility] st Contact Info) Description 12/27/2023 Refill [facility] [address] [place] [address] Ana Cristina Zhang MD [address] [place] [address] Seasonal allergies Social History Tobacco Use Types Packs/Day Years Used Date Smoking Tobacco: Never Passive Smoke Exposure: Never Smokeless Tobacco: Never Alcohol Use Standard Drinks/Week Comments Never 0 (1 standard drink = 0.6 oz pur e alcohol) Depression Answer Date Recorded Patient Health Questionnaire-9 Score 1 07/12/2023 Housing Stability Answer Date Recorded What is your housing situation today? I have devorah moore 09/12/[address] you [...] Description 10/11/2025 3:30 PM EST Office Visit [facility] [address] [place] [address] Ana Cristina Zhang MD [address] [place] [address] documented as of this encounter Visit Diagnoses Diagnosis Seasonal allergies Allergic rhinitis, cause unspecified documented in this encounter Additional Health Concerns Assessment Noted Time PHQ-9 Depression Total Score: 1 07/12/20 23 1:45 PM EDT documented as of this encounter Care Teams Food Service Utility Worker Relationship Specialty Start Date End Date Ana Cristina Zhang MD [address] [place] [phone] PCP - General Family Medicine 07/30/18 documented as of this encounter
--- OUTSIDE RECORDS SUMMARY | 2025-07-15 15:51 | XMS_ITS | Encounter Summary ---
Author Organization [employer] Address 75 [facility] 7t [place] [address] Care Team Providers Care Mechanism Assembler Name Role Phone Ana Cristina Zhang MD Primary Care Provide r Reason for Visit * Reason Onset Date Comments REYNALDO RODRIGUES 03/16/2024 Encounter Details Date Type Department Care Team ([facility] st Contact Info) Description 03/16/2024 Telephone [facility] [address] [place] [address] Ana Cristina Zhang MD [address] [place] [address] FYI OINTLUANN Social History Tobacco Use Types Packs/Day Years [...] AM EDT documented as of this encounter Miscellaneous Notes * Telephone Encounter - Stella Gonsalez - 03/16/2024 11:42 AM EDT Tc from daughter calling stating pharmacy doesn't receive the script for halobetasol (UltraVATE) 0.05 % ointment however automotive service writer call pharmacy and they stated they just have to order medication and will be on the pharmacy in the next 2 days. documented in this encounter Plan of Treatment Upcoming Encounters Date Type Department Care Team (Late st Contact Info) Description 10/11/2025 3:30 PM EST Office Visit [facility] [address] [place] [address] Ana Cristina Zhang MD [address] [place] [address] documented as of this encounter Visit Diagnoses Not on filedocumented in this encounter Additional Health Concerns Assessment Noted Time PHQ-9 Depression Total Score: 1 07/12/20 23 1:45 PM EDT documented as of this encounter Care Teams Mechanism Assembler Relationship Specialty Start Date End Date Ana Cristina Zhang MD [address] [place] [address] PCP - General Family Medicine 07/30/18 documented as of this encounter
--- OUTSIDE RECORDS SUMMARY | 2025-07-15 15:51 | XMS_ITS | Encounter Summary ---
Author Organization [employer] Address [address] [facility] 7[address] [place] [address] Care Team Providers Care Slot Ambassador Name Role Phone Ana Cristina Zhang MD Primary Care Provide r Reason for Visit * Reason Onset Date Comments chart prep 07/14/2025 Encounter Details Date Type Department Care Team ([facility] st Contact Info) Description 07/14/2025 Telephone [facility] [address] [place] [address] Ana Cristina Zhang MD [address] [place], [place] [phone] chart prep Social History Tobacco Use Types Packs/Day Years [...] encounter Miscellaneous Notes * Telephone Encounter - Bisi Merchant MA - 07/14/2025 10:38 AM EDT Chart Prep Labs: not done Images: not applicable Referrals: not applicable Vaccines due: Covid, Flu, and RSV Screenings: colonoscopy Overdue care gaps: A1c, Glucose, SBIRT, PHQ-9, and KALEN-7 documented in this encounter Plan of Treatment Upcoming Encounters Date Type Department Care Team (Late st Contact Info) Description 10/11/2025 3:30 PM EST Office Visit [facility] [address] [place] [address] Ana Cristina Zhang MD [address] [place] [address] documented as of this encounter Visit Diagnoses Not on filedocumented in this encounter Additional Health Concerns Assessment Noted Time PHQ-9 Depression Total Score: 0 05/19/20 9:47 AM EDT documented as of this encounter Care Teams Slot Ambassador Relationship Specialty Start Date End Date Ana Cristina Zhang MD [address] [place] [address] PCP - General Family Medicine 07/30/18 documented as of this encounter
--- OUTSIDE RECORDS SUMMARY | 2025-07-15 15:51 | XMS_ITS | Encounter Summary ---
Author Organization [employer] Address 75 [facility] 7t [place] [address] Care Team Providers Care Box Shook Patcher Name Role Phone Ana Cristina Zhang MD Primary Care Provide r Encounter Details Date Type Department Care Team ([facility] st Contact Info) Description 09/20/2023 Orders Only [facility] [address] [place], [place] [phone] Elen Guardado LPN Social History Tobacco Use Types Packs/Day Years [...] 3:30 PM EST Office Visit [facility] [address] [place] [address] Ana Cristina Zhang MD [address] [place], [place] [phone] documented as of this encounter Procedures Procedure Name Priority Date/Time Associated Diagnosis Comments BI MAMMOGRAM SCREENING TOMOSYNTHESIS BILATERAL Routine 09/20/2023 11:26 AM EDT documented in this encounter Results * BI Mammogram Screening Tomosynthesis Bilateral (09/20/2023 11:26 AM EDT) Anatomical Region Laterality Modality Breast Bilateral Mammography 09/20/2023 11:2 6 AM EDT Narrative 10/11/2023 12:23 PM EST [address] [place] [address] Mammography Report Signed Patient: Roseline Nguyen I MR#: [id number] : 1955 Acct:[id number] Age/Sex: 68 / F ADM Date: 09/20/23 Loc: HO.MAMMO Attending Dr: Ana Cristina Jasso MD Ordering Physician: Ana Cristina Zhang MD Results: 2Benign Findings Date of Service: 09/20/23 Follow Up: 1 Year From Orig inal Mammogram Procedure(s): MM tomosynthesis screening BI Accession Number(s): [id number] cc: Ana Cristina Zhang MD EXAMINATION: MM SCREENING DIGITAL BREAST TOMOSYNTHESIS, BILATERAL CLINICAL INFORMATION: Screening. Asymptomatic. COMPARISON: Mammography: This study is compared with prior exams dating back to 2017. TECHNIQUE: Digital breast tomosynthesis is performed in both the craniocaudal and mediolateral oblique views along with computer-aided detection (CAD). Synthesized 2D images are generated from the tomosynthesis. FINDINGS: The breasts are almost entirely fatty (ACR BI-RADS breast composition Category a). There are no significant masses, abnormal calcifications, or other abnormalities. Unchanged, bilateral benign calcifications are present in each breast. MM/MM tomosynthesis screening BI IMPRESSION: No mammographic evidence of malignancy. ASSESSMENT: BI-RADS BI-RADS 2 - Benign Findings RECOMMENDATION: Routine annual mammography screening. 1 year F/U This examination should not preclude the clinical evaluation of a suspicious palpable abnormality. This patient's information was entered into a reminder system with a target due date for their next mammogram. Dictated By: Cece Dickson MD Signed By: <Electronically signed by Cece Dickson MD in OV> 10/11/23 1219 DD/ 1126 TD/TT: Event Decorator And Designer: Procedure Note Donotuseinterpreter, Image - [facility]/11/2023 [facility] [address] [place] [address] Mammography Report Signed Patient: Roseline Nguyen IMR#: [id number] : [id number]:[id number] Age/Sex: 68 / FADM Date: 09/20/23 Loc: HO.MAMMO Attending Dr: Ana Cristina Jasso MD Ordering Physician: Ana Cristina Zhang MDResults: 2Benign Findings Date of Service: 09/20/23Follow Up: 1 Year From [facility]a Mammogram Procedure(s): MM tomosynthesis screening BI Accession Number(s): [id number] cc: Ana Cristina Zhang MD EXAMINATION: MM SCREENING DIGITAL BREAST TOMOSYNTHESIS, BILATERAL CLINICAL INFORMATION: Screening. Asymptomatic. COMPARISON: Mammography: This study is compared with prior exams dating back to 2017. TECHNIQUE: Digital breast tomosynthesis is performed in both the craniocaudal and mediolateral oblique views along with computer-aided detection (CAD). Synthesized 2D images are generated from the tomosynthesis. FINDINGS: The breasts are almost entirely fatty (ACR BI-RADS breast composition Category a). There are no significant masses, abnormal calcifications, or other abnormalities. Unchanged, bilateral benign calcifications are present in each breast. MM/MM tomosynthesis screening BI IMPRESSION: No mammographic evidence of malignancy. ASSESSMENT: BI-RADS BI-RADS 2 - Benign Findings RECOMMENDATION: Routine annual mammography screening. 1 year F/U This examination should not preclude the clinical evaluation of a suspicious palpable abnormality. This patient's information was entered into a reminder system with a target due date for their next mammogram. Dictated By: Cece Dickson MD Signed By: <Electronically signed by Cece Dickson MD in OV> 10/11/23 1219 DD/ 1126 TD/TT: Event Decorator And Designer: us Ana Cristina Jasso MD IMG BI PROCEDURES Fin al Result documented in this encounter Visit Diagnoses Not on filedocumented in this encounter Additional Health Concerns Assessment Noted Time PHQ-9 Depression Total Score: 1 07/12/20 23 1:45 PM EDT documented as of this encounter Care Teams Box Shook Patcher Relationship Specialty Start Date End Date Ana Cristina Zhang MD [address] [place] [address] PCP - General Family Medicine 07/30/18 documented as of this encounter
--- OUTSIDE RECORDS SUMMARY | 2025-07-15 15:51 | XMS_ITS | Encounter Summary ---
Author Organization [employer] Address [address] [place] [address] 7t [place] [address] Care Team Providers Care Machine Clothing Worker Name Role Phone Ana Cristina Zhang MD Primary Care Provide r Reason for Visit * Reason Comments Med Refill Encounter Details Date Type Department Care Team ([facility] Contact Info) Description 03/24/2023 Refill [facility] [address] [place] [address] Ana Cristina Zhang MD [address] [place] [address] Pain Social History Tobacco Use Types Packs/Day [...] Encounters Date Type Department Care Team (Late Contact Info) Description 10/11/2025 3:30 PM EST Office Visit [facility] [address] [place] [phone] Ana Cristina Zhang MD [address] [place] [address] [phone] documented as of this encounter Visit Diagnoses Diagnosis Pain Generalized pain documented in this encounter Care Teams Machine Clothing Worker Relationship Specialty Start Date End Date Ana Cristina Zhang MD [address] [place] [phone] PCP - General Family Medicine 07/30/18 documented as of this encounter
--- OUTSIDE RECORDS SUMMARY | 2025-07-15 15:51 | XMS_ITS | Encounter Summary ---
Author Organization [employer] Address [address] [place] [address] 7t [place] [address] Care Team Providers Care Fire Extinguisher Charger Name Role Phone Ana Cristina Zhang MD Primary Care Provide r Encounter Details Date Type Department Care Team (Latest Contact Info) Description 04/20/2019 Abstract [facility] CONVERSIONS Dental, Provider, DDS Social History Tobacco Use Types Packs/Day Years Used Date Smoking Tobacco: Never Assessed Comments Unknown Sex and Gender Information Value [...] Description 10/11/2025 3:30 PM EST Office Visit [facility] MED[facility]INE [address] [place] [address] Ana Cristina Zhang MD [address] [place] [address] documented as of this encounter Visit Diagnoses Not on filedocumented in this encounter Care Teams Fire Extinguisher Charger Relationship Specialty Start Date End Date Ana Cristina Zhang MD [address] [place] [address] PCP - General Family Medicine 07/30/18 documented as of this encounter
--- OUTSIDE RECORDS SUMMARY | 2025-07-15 15:51 | XMS_ITS | Encounter Summary ---
Author Organization [employer] Address [address] [facility] [address] [place] [address] Care Team Providers Care Hammer Smith Name Role Phone Ana Cristina Zhang MD Primary Care Provide r Encounter Details Date Type Department Care Team ([facility] st Contact Info) Description 08/28/2023 Abstract [facility] [address] [place] [address] Ana Cristina Zhang MD [address] [place], [place] [phone] Social History Tobacco Use Types Packs/Day Years Used Date Smoking Tobacco: Never Passive Smoke Exposure: Never Smokeless Tobacco: Never Alcohol Use Standard Drinks/Week Comments Never 0 (1 standard drink = 0.6 oz pur e alcohol) Depression Answer Date Recorded Patient Health Questionnaire-9 Score 1 07/12/2023 Housing Stability Answer Date Recorded What is your housing situation today? I have devorahpolo moore 08/25/[address] you li ve. Do you have problems with any of the following? None of the above 08/25/2023 Food Insecurity Answer Date Recorded Within the past 12 months, y ou worried that your food would run out before you got money to buy more: Never True 08/25/2023 Within the past 12 months,th e food you bought just didn't last and you didn't have enough money to get more: Never True 06/2023 Transportation Answer Date Recorded In the past 12 months, has l ack of transportation kept you from medical appts, meetings, work or from getting things needed for daily living? No 08/25/2023 Utilities Answer Date Recorded In the past 12 months, has t he [employer], [employer], oil or water [employer] threatened to shut off services in your home? No 08/25/2023 Depression Answer Date Recorded Patient Health Questionnaire-2 [...] 3:30 PM EST Office Visit [facility] [address] [place], [place] [phone] Ana Cristina Zhang MD [address] [place], [place] [phone] documented as of this encounter Procedures Procedure Name Priority Date/Time Associated Diagnosis Comments HM COLONOSCOPY Routine 02/17/2021 documented in this encounter Results * Hm Colonoscopy (02/17/2021) Colonoscopy Normal Normal Narrative Hazel Ulrich - 02/17/2021 Recommended 4 year follow up due to multiple adenomas us Historical Provider HEALTH MAINTENANCE Final Result documented in this encounter Visit Diagnoses Not on filedocumented in this encounter Additional Health Concerns Assessment Noted Time PHQ-9 Depression Total Score: 1 07/12/20 23 1:45 PM EDT documented as of this encounter Care Teams Hammer Smith Relationship Specialty Start Date End Date Ana Cristina Zhang MD [address] [place] [address] PCP - General Family Medicine 07/30/18 documented as of this encounter
== END 2025-07-15 15:18 | disposition home or self-care (01) ==
LOC: HO.HHCL 15:17
PROVIDERS: PCP Internal Medicine; Visit Provider Internal Medicine
DX: R53.83 Other fatigue (principal)
CPT/HCPCS: 36415; 84443

== ENCOUNTER 2025-11-09 15:13 | Outpatient (REF) | payer OTHER, SELFPAY ==
--- OUTSIDE RECORDS SUMMARY | 2025-11-09 16:28 | XMS_ITS | Data Portability ---
Author Organization [employer] [facility] [facility] Address [address] [place] [address] Care Team Providers Care Pasteurizing Machine Operator Name Role Phone [facility] Referring Provider [phone] Assessment Encounter Date Assessment Date Assessment LastModified [...] t Available Vitals Date Recorded Oxygen saturation Respiratory rate Body height Heart rate Body temperature Body weight Respiratory rate Heart rate Body temperature Body height Oxygen saturation Body weight Provider Name and Address Organization Details Last Updated DateTime 2 98 % 18 /min 154.94 cm 75 /min 98 [degF] 37621.7 04 g 18 /min 75 /min 98 [degF] 154.94 cm 98 % 65465.7 04 g Not Available [facility] - production 2 17:54:54 Date Recorded Systolic And Diastolic Systolic And Diastolic Provider Name and Address Organization Details Last Updated DateTime 07/26/2022 138/86 mm[Hg] 138/86 mm[Hg] Not Available [facility] 07/26/2022 17:54:54 Social History None recorded. Functional Status None recorded. Mental Status None recorded. Family History Nothing Reported. Medical History No medical history recorded. Gynecological HistoryNo gynecological history recorded. Obstetrics History GPAL:G 0 P 0 0 0 0 Past Encounters Encounter ID Performer Location Encounter Start Date Encounter Closed Date Diagnosis/Indication Diagnosis SNOMED-CT Code Diagnosis ICD10 Code Diagnosis IMO Codes Diagnosis Note [id number] Richard Álvarez MD [address] [address] 07/26/2022 17:33:04 08/10/2022 13:06:41 Tension-type headache 232679168 G44.209 Health Concerns Section Related Observation LastModified by Organization Detai ls LastModified Time None Recorded Concern Status LastModified by Organization Details LastModified Time None Recorded Advance Directives Directive None Recorded Payers Insurance Date Sequence Insurance Name Policy Number Policy Vargas Covered Member ID Vargas Member ID Guarantor Name 01/21/2024 1 [facility] - DOS PRIOR TO 2023 - DUAL ELIGIBLE (MEDICARE REPLACEMENT/ADV ANTAGE - HMO) Roseline Nguyen [id number] Roseline Nguyen 01/30/2024 1 [facility] - DOS ON OR AFTER 2023 - DUAL ELIGIBLE - PRISON OPTIONS AND ONE CARE (MEDICARE REPLACEMENT/ADV ANTAGE - HMO) Roseline Nguyen [id number] Roseline Nguyen Notes Date Note Type Note [...] .................. .................. .................. .................. .................. .................. ............... Flue Lining Dipper Note: Sent to a call for a pt complaining of a headache. [facility] arrives on scene, pt is found sitting upright in chair. Pt is alert and oriented. Airway is patent. Pt speaks Sammarinese. Family serves as acoustical carpenter. Pt complains of a headache radiating from [...] non-tender, no distention; Skin: pink, warm, dry; [facility] orders Ketorolac 30mg IM. Ketorolac administered without incident. Pt advised to follow up with PCP. Red flags discussed. Pt/family have no further questions. .................. .................. .................. .................. .................. .................. .................. ............... Disposition: Kanika Álvarez MD [address] [facility],[address], [place], [address], [facility] - KEYLA GRACE 07/26/2022 23:46:10 OBGyn Episode No OBEpisode recorded.
--- OUTSIDE RECORDS SUMMARY | 2025-11-09 16:28 | XMS_ITS | Clinical Summary ---
Author Organization [employer] Address [address] [facility] [address] [place] [address] Care Team Providers Care Blow Molding Machine Operator Name Role Phone Ana Cristina Zhang MD Primary Care Provide r Allergies Active Allergy Reactions Criticality Noted Date Comments Hydrocodone Angioedema High 03/02/2022 Oxycodone Angioedema 03/02/2022 Medications levothyroxine (Synthroid, Levoxyl) 112 MCG tablet 023 Active cholecalciferol (Vitamin D-3) 50 MCG (1999) capsuleIndicatio ns:Osteopenia of multiple sites TAKE 1 CAPSULE (50 MCG) BY MOUTH IN THE MORNING 90 capsule 1 023 Active Spacer/Aero-Hold ing Chambers (AeroChamber MV) inhalerIndicatio ns:Acute URI Use as instructed 1 each 2 024 Active clotrimazole (Lotrimin) 1 % creamIndications :Intertrigo Apply topically 2 times daily. 60 g 1 024 Active losartan-hydroCH LOROthiazide (Hyzaar) 50-12.5 MG tabletIndication s:Hypertension, unspecified type TAKE 1 TABLET BY MOUTH EVERY DAY 90 tablet 3 024 Active levothyroxine (Synthroid, Levoxyl) 112 MCG tablet TAKE 1 TABLET BY MOUTH EVERY DAY 90 tablet 3 024 Active Blood Pressure Monitoring (Blood Pressure Cuff) miscIndications: Essential hypertension 1 each Once daily. 1 each 025 Active halobetasol (UltraVATE) 0.05 % ointmentIndicati ons:Psoriasis Apply topically 2 times daily. For 2 weeks 100 g 3 025 Active calcipotriene (Dovonex) 0.005 % ointmentIndicati ons:Psoriasis Apply topically 2 times daily. For 2 weeks and alternate with Halobetasol 60 g 3 025 Active atorvastatin (Lipitor) 20 MG tabletIndication s:Essential hypertension Take 1 tablet (20 mg) by mouth in the morning. 90 tablet 3 025 Active albuterol 108 (90 Base) MCG/ACT inhalerIndicatio ns:Mild intermittent asthma with status asthmaticus Inhale 2 puffs every 6 (six) hours if needed for wheezing. 18 g 11 025 2025 Active cyclobenzaprine (Flexeril) 10 MG tabletIndication s:Acute pain of left shoulder TAKE 1/2 TABLET (5 MG) BY MOUTH AT BEDTIME. 30 tablet 025 Active acetaminophen (Tylenol 8 Hour) 650 MG ER tabletIndication s:Pain TAKE 1 TABLET (650 MG) BY MOUTH EVERY 8 (EIGHT) HOURS IF NEEDED FOR MILD PAIN. 60 tablet 025 Active Diclofenac Sodium 1 % gelIndications:C hronic left shoulder pain Apply 1 Application topically every 12 (twelve) hours if needed (apply on affected area). 100 g 2 025 Active fluticasone (Flonase) 50 MCG/ACT nasal sprayIndications :Seasonal allergies Administer 1 spray into each nostril 2 times daily. Shake gently. Before first use, prime pump. After use, clean tip and replace cap. 48 mL 1 025 Active cetirizine (ZyrTEC) 10 MG tabletIndication s:Seasonal allergies Take 1 tablet (10 mg) by mouth at bedtime. 90 tablet 025 Active cyclobenzaprine (Flexeril) 10 MG tabletIndication s:Chronic left shoulder pain Take 1 tablet (10 mg) by mouth 3 times daily. 30 tablet 2 025 2024 Active fluticasone (Flonase) 50 MCG/ACT nasal sprayIndications :Seasonal allergies SPRAY 1 SPRAY INTO EACH NOSTRIL IN THE MORNING 48 mL 024 2024 Discontinued(R eorder (will not trigger notification to Pharmacy)) cyclobenzaprine (Flexeril) 10 MG tabletIndication s:Acute pain of left shoulder Take 1 tablet (10 mg) by mouth 3 times daily for 10 days. 30 tablet 025 2024 Discontinued(R eorder (will not trigger notification to Pharmacy)) cetirizine (ZyrTEC) 10 MG tabletIndication s:Seasonal allergies TAKE 1 TABLET BY MOUTH EVERYDAY AT BEDTIME 90 tablet 025 2024 Discontinued(R eorder (will not trigger notification to Pharmacy)) Diclofenac Sodium 1 % gelIndications:C hronic left shoulder pain APPLY TO AFFECTED AREA EVERY 12 HOURS IF NEEDED 100 g 1 025 2024 Discontinued(R eorder (will not trigger notification to Pharmacy)) clotrimazole-bet amethasone (Lotrisone) creamIndications :Candidal intertrigo Apply topically 2 times daily for 28 days. 45 g 1 025 2024 RSV Pre-Fusion F A&B Vac Rcmb (Abrysvo) 120 MCG/0.5ML reconstituted solutionIndicati ons:Seasonal allergies Inject 0.5 mL (120 mcg) into the muscle 1 (one) time for 1 dose. 0.5 mL 2024 Active Problems Problem Noted Date Diagnosed Date Class 2 severe obesity due t o excess calories with serious comorbidity and body mass index (BMI) of 37.0 to 37.9 in adult 10/11/2025 Acquired hypothyroidism 07/15/2025 Assessment & Plan (07/15/2025 4:10 PM EDT): TSH will be checked patient will be contacted with results Mild intermittent asthma 04/14/2025 Other fatigue 04/14/2025 [...] with PCP. Prediabetes 08/28/2024 Assessment & Plan (07/15/2025 4:09 PM EDT): Counseling about healthy diet and exercise done today Assessment & Plan (11/19/2024 2:05 PM EST): [...] deficiency 09/16/2012 Hypertension 09/16/2012 Assessment & Plan (07/15/2025 4:09 PM EDT): I advised: - Aerobic exercise [...] consulting health care provider Assessment & Plan (08/28/2024 10:55 AM EDT): [...] Encounters Date Type Department Care Team Description 10/11/2025 3:30 PM EST Office Visit [facility] [address] [place] [phone] Ana Cristina Zhang MD Chronic left shoulder pain; Seasonal allergies; Candidal intertrigo; Essential hypertension; Class 2 severe obesity due to excess calories with serious comorbidity and body mass index (BMI) of 37.0 to 37.9 in adult; Encounter for immunization 10/11/2025 Travel 10/08/2025 Telephone [facility] [address] [place] [phone] Ana Cristina Zhang MD chart prep 10/04/2025 Patient Outreach [address] [address] Ana Cristina Zhang MD Pre-visit Planning ([facility] screening completed on 07/08/2025) from Last 3 Months Immunizations Immunization Administration Dates Next Due Influenza High-dose Quadriva lent Preservative Free 09/27/2023,08/21/2022,09/28/2021,12/12 Influenza injectable quadriv alent IIV4 with preservative 09/26/2016,11/21/2015 Influenza injectable quadriv alent preservative free 10/17/2018,08/27/2017 Influenza, High Dose Seasona l, Preservative Free 10/11/2025,08/28/2024,01/05/2020 Influenza, IIV3, injectable 08/03/2014 Influenza, Split (incl. bisi fied surface antigen) 09/21/2013,09/16/2012 MMR 09/28/2021,01/07/1998 Pfizer Covid-19 Vaccine 12+ 10/11/2025,,12/27/2023 Pneumococcal Conjugate PCV 13 10/17/2018 Pneumococcal Polysaccharide [...] Sign Reading Time Taken Comments Blood Pressure 130/84 10/11/2025 3:30 PM EST Pulse 77 10/11/2025 3:30 PM EST Temperature 34.5 C (94.1 F) 10/11/2025 3:30 PM EST Respiratory Rate 18 10/11/2025 3:30 PM EST Oxygen Saturation 97% 10/11/2025 3:30 PM EST Inhaled Oxygen Concentration - - Weight 90.5 kg (199 lb 9.6 oz) 10/11/2025 3:30 P M EST Height 154.9 cm (5' 1 ) 10/11/2025 3:30 PM EST Body Mass Index 37.71 10/11/2025 3:30 PM EST Plan of Treatment Upcoming Encounters Date Type Department Care Team (Late st Contact Info) Description 01/12/2026 3:00 PM EST Office Visit [facility] [address] [place] [address] Ana Cristina Zhang MD [address] [place] [address] Health Maintenance Due Date Last Done Comments CT Colonography 1955 FIT 1955 Sigmoidoscopy 1955 Hepatitis C Screening 1971 RSV Patients and Patients Aged 60 years or older (1 - Risk 50-74 years 1-dose series) 2003 Colonoscopy 02/17/2025 02/17/2021 Colorectal Cancer Screening 10/05/2025 Mammogram 10/12/2025 10/12/2024, 09/18, 09/20/2023, Additional history exists Diabetes: Hemoglobin A1C 10/15/2025 025, 11/19/2024, 03/26/2024, Additional history exists COVID-19 Vaccine ( season) 2026 10/11/2025, 08/28/2024, 12/27/2023, Additional history exists SDOH Screening 07/08/2026 07/08/2025 Alcohol/Substance Use Screening 07/15/2026 07/15/2025 Depression Screening 07/15/2026 07/15/2025, 07/15/20 FOBT 10/04/2026 10/04/2025 Tobacco Screening 10/11/2026 10/11/2025 FIT DNA/Cologuard 10/04/2028 10/04/2025 Lipid Panel 11/19/2029 11/19/2024, 0507/2024, 05/01/2023, Additional history exists DTaP/Tdap/Td Vaccines (5 - Td or Tdap) 07/05/2033 07/05/2023, 06/13/2013, 06/13/2013, Additional history exists Pneumococcal Vaccine: 50+ Years Completed 09/28/2021, 10/17/2018 Zoster Vaccines Completed 07/05/2023, 04/18, 08/03/2014 Influenza Vaccine Completed 10/11/2025, , 09/27/2023, Additional history exists HIB Vaccines Aged Out No longer eligi [...] Procedure Name Priority Date/Time Associated Diagnosis Comments LAB COLOGUARD COLON CANCER SCREEN Routine 10/04/2025 10:14 AM EST Screening for colon cancer POCT GLYCATED HEMOGLOBIN, TOTAL Routine 07/15/2025 2:59 PM EDT Prediabetes LIPID PANEL, STANDARD Routine 11/19/2024 2:22 PM EST Prediabetes BI US BREAST LIMITED LEFT Routine 10/12/2024 8:30 AM EST HM COLONOSCOPY Routine 02/17/2021 from Last 3 Months or Most Recently Relevant to Health Maintenance Results * Cologuard?? colon cancer screening (10/04/2025 10:14 AM EST) Pathologist [facility] Cologuard Result Negative Negative 10/09/20 7:43 PM EST [facility] (CLIA #:[id number]) Comment: The Cologuard (TM) test was performed on this specimen. NEGATIVE TEST RESULT. A negative Cologuard result indicates a low likelihood that a colorectal cancer (CRC) or advanced adenoma (adenomatous polyps with more advanced pre-malignant features) is present. The chance that a person with a negative Cologuard test has a colorectal cancer is less than 1 in 1500 (negative predictive value >99.9%) or has an advanced adenoma is less than 5.3% (negative predictive value 94.7%). These data are based on a prospective cross-sectional study of 10,000 individuals at average risk for colorectal cancer who were screened with both Cologuard and colonoscopy. (Jocelyne Seymour al, N Engl J Med 2014;370(14):1286- 1297) The normal value (reference range) for this assay is negative. COLOGUARD RE-SCREENING RECOMMENDATION: Periodic colorectal cancer screening is an important part of preventive healthcare for asymptomatic individuals at average risk for colorectal cancer. Following a negative Cologuard result, the [place] Cancer Society and U.S. Multi-Society Task Force screening guidelines recommend a Cologuard re-screening interval of 3 years. References: [place] [employer] Guideline for Colorectal Cancer Screening: https://www.cancer.org/cancer/qpbbu-vtydie-bhvsvk/uzyzbulvr-ngfxmszhm-dovovzr/ac s-rec ommendations.html.; Herbie DK, Alma CR, Milind RubiK, Colorectal Cancer Screening: Recommendations for Physicians and Patients from the U.S. Multi-Society Task Force on Colorectal Cancer Screening , Am J Gastroenterology 2017; 112:5863-1444. TEST DESCRIPTION: Composite algorithmic analysis of stool DNA-biomarkers with hemoglobin immunoassay. Quantitative values of individual biomarkers are not reportable and are not associated with individual biomarker result reference ranges. Cologuard is intended for colorectal cancer screening of adults of either sex, 45 years or older, who are at average-risk for colorectal cancer (CRC). Cologuard has been approved for use by the U.S. FDA. The performance of Cologuard was established in a cross sectional study of average-risk adults aged 50-84. Cologuard performance in patients ages 45 to 49 years was estimated by sub-group analysis of near-age groups. Colonoscopies performed for a positive result may find as the most clinically significant lesion: colorectal cancer [4.0%], advanced adenoma (including sessile serrated polyps greater than or equal to 1cm diameter) [20%] or non- advanced adenoma [31%]; or no colorectal neoplasia [45%]. These estimates are derived from a prospective cross-sectional screening study of 10,000 individuals at average risk for colorectal cancer who were screened with both Cologuard and colonoscopy. (Jocelyne Seymour al, N Engl J Med 2014;370(14):3705-0944.) Cologuard may produce a false negative or false positive result (no colorectal cancer or precancerous polyp present at colonoscopy follow up). A negative Cologuard test result does not guarantee the absence of CRC or advanced adenoma (pre-cancer). The current Cologuard screening interval is every 3 years. ([place] [employer] Society and U.S. Multi-Society Task Force). Cologuard performance data in a 10,000 patient pivotal study using colonoscopy as the reference method can be accessed at the following location: www.Shopear.Ondango/results. Additional description of the Cologuard test process, warnings and precautions can be found at www.[employer]ovi Technologies[employer].com. Stool specimen (specimen) 10/04/2025 10:14 AM EST 10/05/2025 1:59 PM EST us Ana Cristina Jasso MD LAB MOLECULAR DIAGNOS TICS ORDERABLES Final Result [facility] (CLIA #:[id number]) [address] [place] [address], * (ABNORMAL) POCT HGB A1C (07/15/2025 2:59 PM EDT) Hemoglobin A1C 5.8(A) 4.0 - 5.7 % QC Media Lot # [id number] Lot# Expiration Date 122 Blood 07/15/2025 2:59 PM EDT us Ana Cristina Jasso MD POINT OF CARE TEST ENTER/EDIT ORDERABLES Edited Result - Final * Lipid Panel, Standard (11/19/2024 2:22 PM EST) Triglycerides 62 <150 mg/dL [facility] Comment:Desirable Triglyceri de: less than 150 mg/dLBorderline High Triglyceride 150-199 mg/dLHigh Triglyceride: 200-499 mg/dLVery High Triglyceride: greater than or equal to 5OO mg/dL Cholesterol 155 <200 mg/dL [facility] Comment:Desirable Cholestero l: less than 200 mg/dLBorderline High Cholesterol: 200-239 mg/dLHigh Cholesterol: greater than 239 mg/dL LDL Cholesterol Calculated 77 <100 mg/dL [facility] Comment:Desirable LDL: less than 100 mg/dLNear Optimal/Above Optimal LDL: 110- 129 mg/dLBorderline High LDL: 130-159 mg/dLHigh LDL: 160-189 mg/dLVery High LDL: greater than or equal to 190 mg/dL HDL Cholesterol 66 >40 mg/dL [facility] Comment:Desirable HDL: great er than 40 mg/dL Note: This HDL assay may give artificially low results in patients with liver disease. Blood Venous blood specimen / Unknown 11/19/2024 2:22 PM EST 11/19/2024 3:58 PM EST us Ana Cristina Jasso MD LAB BLOOD ORDERABLES Final Result [facility] [address] [place] [address] [phone] * BI US Breast Limited Left (10/12/2024 8:30 AM EST) Anatomical Region Laterality Modality Breast Left Ultrasound 10/12/2024 8:30 AM EST Narrative 10/12/2024 8:45 AM EST [address] [place] [address] Ultrasound Report Signed Patient: Roseline Nguyen I MR#: [id number] : 1955 Acct:[id number] Age/Sex: 69 / F ADM Date: 10/12/24 Loc: HO.MAMMO Attending Dr: Ana Cristina Jasso MD Ordering Physician: Ana Cristina Zhang MD Date of Service: 10/12/24 Procedure(s): US breast LT limited mamm only Accession Number(s): [id number] cc: Ana Cristina Zhang MD EXAMINATION: MM [...] 10/12/24 0841 DD/ 0830 TD/TT: 10/12/24 0834 Pad Assembler: Procedure Note Donotuseinterpreter, Image - [facility] [address] [place] [address] Ultrasound Report Signed Patient: Roseline Nguyen IMR#: [id number] : 3Acct:[id number] Age/Sex: 69 / FADM Date: 10/12/24 Loc: HO.MAMMO Attending Dr: Ana Cristina Jasso MD Ordering Physician: Ana Cristina Zhang MD Date of Service: 10/12/24 Procedure(s): US breast LT limited mamm only Accession Number(s): [id number] cc: Ana Cristina Zhang MD EXAMINATION: MM [...] 10/12/24 0841 DD/ 0830 TD/TT: 10/12/24 0834 Pad Assembler: Ana Cristina Jasso MD IMG US PROCEDURES Fin al Result * Colonoscopy (02/17/2021) Colonoscopy Normal Normal Narrative Hazel Ulrich - 02/17/2021 Recommended 4 year follow up due to multiple adenomas us Historical Provider HEALTH MAINTENANCE Final Result from Last 3 Months or Most Recently Relevant to Health Maintenance Insurance [facility] [facility] [employer] (HMO D-SNP) KADEN DAVID [id number] Care Teams Blow Molding Machine Operator Relationship Specialty Start Date End Date Ana Cristina Zhang MD [address] [place] [phone] PCP - General Family Medicine 07/30/18
--- OUTSIDE RECORDS SUMMARY | 2025-11-09 16:29 | XMS_ITS | Encounter Summary ---
Author Organization [employer] Address [address] [place] [address] [address] [place] [address] Care Team Providers Care Mixer Runner Name Role Phone Ana Cristina Zhang MD Primary Care Provide r Reason for Visit * Reason Comments Med Refill Encounter Details Date Type Department Care Team (Late Contact Info) Description 03/19/2023 Refill [facility] [address] [place] [phone] [facility] [address] [place] [address] Pain Social History Tobacco Use Types Packs/Day [...] Description 01/12/2026 3:00 PM EST Office Visit [facility] [address] [place] [phone] Ana Cristina Zhang MD [address] [place] [phone] documented as of this encounter Visit Diagnoses Diagnosis Pain Generalized pain documented in this encounter Care Teams Mixer Runner Relationship Specialty Start Date End Date Ana Cristina Zhang MD [address] [place] [phone] PCP - General Family Medicine 07/30/18 documented as of this encounter
--- OUTSIDE RECORDS SUMMARY | 2025-11-09 16:29 | XMS_ITS | Encounter Summary ---
Author Organization [employer] Address [address] [facility] 7t [place] [address] Care Team Providers Care Global Supply Chain Director Name Role Phone Ana Cristina Zhang MD Primary Care Provide r Reason for Visit * Reason Comments Med Refill Encounter Details Date Type Department Care Team (Late st Contact Info) Description 12/16/2024 Refill [facility] [address] [place], [place] [phone] [facility] [address] [place], [place] [phone] Acute URI Social History Tobacco Use Types [...] Description 01/12/2026 3:00 PM EST Office Visit [facility] [address] [place] [address] Ana Cristina Zhang MD [address] [place] [address] documented as of this encounter Visit Diagnoses Diagnosis Acute URI Acute upper respiratory infections of unspecified site documented in this encounter Additional Health Concerns Assessment Noted Time PHQ-9 Depression Total Score: 0 05/19/20 24 9:47 AM EDT documented as of this encounter Care Teams Global Supply Chain Director Relationship Specialty Start Date End Date Ana Cristina Zhang MD [address] [place] [address] PCP - General Family Medicine 07/30/18 documented as of this encounter
--- OUTSIDE RECORDS SUMMARY | 2025-11-09 16:29 | XMS_ITS | Encounter Summary ---
Author Organization [employer] Address [address] [place] [address] 7[place] [address] Care Team Providers Care Mounter Sousaphones Name Role Phone Ana Cristina Zhang MD Primary Care Provide r Reason for Visit * Reason Comments Med Refill Encounter Details Date Type Department Care Team ([facility] Contact Info) Description 03/24/2023 Refill [facility] [address] [place] [phone] Ana Cristina Zhang MD [address] [place] [phone] Pain Social History Tobacco Use Types Packs/Day [...] Department Care Team (Late Contact Info) Description 01/12/2026 3:00 PM EST Office Visit [facility] [address] [place] [phone] Ana Cristina Zhang MD [address] [place] [address] [phone] documented as of this encounter Visit Diagnoses Diagnosis Pain Generalized pain documented in this encounter Care Teams Mounter Sousaphones Relationship Specialty Start Date End Date Ana Cristina Zhang MD [address] [place] [phone] PCP - General Family Medicine 07/30/18 documented as of this encounter
--- OUTSIDE RECORDS SUMMARY | 2025-11-09 16:29 | XMS_ITS | Encounter Summary ---
Author Organization [employer] Address [address] [facility] 7t [place] [address] Care Team Providers Care Big Data Engineer Name Role Phone Ana Cristina Zhang MD Primary Care Provide r Reason for Visit * Reason Comments Med Refill Encounter Details Date Type Department Care Team ([facility] st Contact Info) Description 12/27/2023 Refill [facility] [address] [place] [address] Ana Cristina Zhang MD 230 [place] [address] Seasonal allergies Social History Tobacco Use Types [...] Description 01/12/2026 3:00 PM EST Office Visit [facility] [address] [place] [phone] Ana Cristina Zhang MD [address] [place] [phone] documented as of this encounter Visit Diagnoses Diagnosis Seasonal allergies Allergic rhinitis, cause unspecified documented in this encounter Additional Health Concerns Assessment Noted Time PHQ-9 Depression Total Score: 1 07/12/20 23 1:45 PM EDT documented as of this encounter Care Teams Big Data Engineer Relationship Specialty Start Date End Date Ana Cristina Zhang MD [address] [place] [phone] PCP - General Family Medicine 07/30/18 documented as of this encounter
--- OUTSIDE RECORDS SUMMARY | 2025-11-09 16:29 | XMS_ITS | Encounter Summary ---
Author Organization [employer] Address 75 [facility] 7t [place] [address] Care Team Providers Care Welding Setter Name Role Phone Ana Cristina Zhang MD Primary Care Provide r Reason for Visit * Reason Comments Med Refill Encounter Details Date Type Department Care Team ([facility] st Contact Info) Description 12/16/2024 Refill [facility] [address] [place] [address] Ana Cristina Zhang MD 230 [place] [address] Acute pain of left shoulder; Pain Social [...] Description 01/12/2026 3:00 PM EST Office Visit [facility] [address] [place] [address] Ana Cristina Zhang MD 230 [place] [address] documented as of this encounter Visit Diagnoses Diagnosis Acute pain of left shoulder Pain Generalized pain documented in this encounter Additional Health Concerns Assessment Noted Time PHQ-9 Depression Total Score: 0 05/19/20 24 9:47 AM EDT documented as of this encounter Care Teams Welding Setter Relationship Specialty Start Date End Date Ana Cristina Zhang MD [address] [place] [phone] PCP - General Family Medicine 07/30/18 documented as of this encounter
--- OUTSIDE RECORDS SUMMARY | 2025-11-09 16:29 | XMS_ITS | Encounter Summary ---
Author Organization [employer] Address 75 [facility] 7t [place] [address] Care Team Providers Care Merchandise Executive Name Role Phone Ana Cristina Zhang MD Primary Care Provide r Reason for Visit * Reason Comments Med Refill Encounter Details Date Type Department Care Team ([facility] st Contact Info) Description 09/28/2023 Refill [facility] 230 [place] [address] Ana Cristina Zhang MD 230 [place] [address] Psoriasis Social History Tobacco Use Types Packs/Day [...] Description 01/12/2026 3:00 PM EST Office Visit [facility] [address] [place] [phone] Ana Cristina Zhang MD [address] [place] [phone] documented as of this encounter Visit Diagnoses Diagnosis Psoriasis Other psoriasis documented in this encounter Additional Health Concerns Assessment Noted Time PHQ-9 Depression Total Score: 1 07/12/20 23 1:45 PM EDT documented as of this encounter Care Teams Merchandise Executive Relationship Specialty Start Date End Date Ana Cristina Zhang MD [address] [place] [phone] PCP - General Family Medicine 07/30/18 documented as of this encounter
--- OUTSIDE RECORDS SUMMARY | 2025-11-09 16:29 | XMS_ITS | Encounter Summary ---
Author Organization [employer] Address 75 [facility] 7t [place] [address] Care Team Providers Care Electric Bath Attendant Name Role Phone Ana Cristina Zhang MD Primary Care Provide r Encounter Details Date Type Department Care Team ([facility] st Contact Info) Description 09/20/2023 Orders Only [facility] [address] [place], [place] [phone] Elen Guardado LPN Social History Tobacco Use [...] Description 01/12/2026 3:00 PM EST Office Visit [facility] 230 [place] [address] Ana Cristina Zhang MD [address] [place], [place] [phone] documented as of this encounter Procedures Procedure Name Priority Date/Time Associated Diagnosis Comments BI MAMMOGRAM SCREENING TOMOSYNTHESIS BILATERAL Routine 09/20/2023 11:26 AM EDT documented in this encounter Results * BI Mammogram Screening Tomosynthesis Bilateral (09/20/2023 11:26 AM EDT) Anatomical Region Laterality Modality Breast Bilateral Mammography 09/20/2023 11:2 6 AM EDT Narrative 10/11/2023 12:23 PM EST [address] [place] [address] Mammography Report Signed Patient: Roseline Nguyen I MR#: [id number] : 1955 Acct:[id number] Age/Sex: 68 / F ADM Date: 09/20/23 Loc: HO.MAMMO Attending Dr: Ana Cristina Jasso MD Ordering Physician: Ana Cristina Zhang MD Results: 2Benign Findings Date of Service: 09/20/23 Follow Up: 1 Year From Orig inal Mammogram Procedure(s): MM tomosynthesis screening BI Accession Number(s): [id number] cc: Ana Cristina Zhang MD EXAMINATION: MM [...] in OV> 10/11/23 1219 DD/ 1126 TD/TT: Scientific Laboratory Supervisor: Procedure Note Donotuseinterpreter, Image - 10/11/2023 [facility] [address] [place] [address] Mammography Report Signed Patient: Roseline Nguyen IMR#: [id number] : [id number]:[id number] Age/Sex: 68 / FADM Date: 09/20/23 Loc: HO.MAMMO Attending Dr: Ana Cristina Jasso MD Ordering Physician: Ana Cristina Zhang MDResults: 2Benign Findings Date of Service: 09/20/23Follow Up: 1 Year From [facility] ina Mammogram Procedure(s): MM tomosynthesis screening BI Accession Number(s): [id number] cc: Ana Cristina Zhang MD EXAMINATION: MM [...] in OV> 10/11/23 1219 DD/ 1126 TD/TT: Scientific Laboratory Supervisor: us Ana Cristina Jasso MD IMG BI PROCEDURES Fin al Result documented in this encounter Visit Diagnoses Not on filedocumented in this encounter Additional Health Concerns Assessment Noted Time PHQ-9 Depression Total Score: 1 07/12/20 23 1:45 PM EDT documented as of this encounter Care Teams Electric Bath Attendant Relationship Specialty Start Date End Date Ana Cristina Zhang MD [address] [place] [phone] PCP - General Family Medicine 07/30/18 documented as of this encounter
--- OUTSIDE RECORDS SUMMARY | 2025-11-09 16:29 | XMS_ITS | Encounter Summary ---
Author Organization [employer] Address [address] [place] [address] 7t [place] [address] Care Team Providers Care Clinical Documentation Improvement Specialist Name Role Phone Ana Cristina Zhang MD Primary Care Provide r Encounter Details Date Type Department Care Team (Latest Contact Info) Description 04/20/2019 Abstract [facility] CONVERSIONS Dental, Provider, DDS Social History Tobacco [...] Description 01/12/2026 3:00 PM EST Office Visit [facility] [address] [place] [address] Ana Cristina Zhang MD [address] [place] [address] documented as of this encounter Visit Diagnoses Not on filedocumented in this encounter Care Teams Clinical Documentation Improvement Specialist Relationship Specialty Start Date End Date Ana Cristina Zhang MD [address] [place] [phone] PCP - General Family Medicine 07/30/18 documented as of this encounter
--- OUTSIDE RECORDS SUMMARY | 2025-11-09 16:29 | XMS_ITS | Encounter Summary ---
Author Organization [employer] Address [address] [facility] 7t [place] [address] Care Team Providers Care Client Server Developer Name Role Phone Ana Cristina Zhang MD Primary Care Provide r Encounter Details Date Type Department Care Team ([facility] st Contact Info) Description 08/28/2023 Abstract [facility] [address] [place] [address] Ana Cristina Zhang MD [address] [place], [place] [phone] Social History Tobacco Use Types Packs/Day Years [...] the past 12 months, has t he [employer], oil or water [employer] threatened to shut off services in your [...] Description 01/12/2026 3:00 PM EST Office Visit [facility] [address] [place], [place] [phone] Ana Cristina Zhang MD [address] [place], [place] [phone] documented as of this encounter Procedures Procedure [...] documented as of this encounter Care Teams Client Server Developer Relationship Specialty Start Date End Date Ana Cristina Zhang MD [address] [place] [address] PCP - General Family Medicine 07/30/18 documented as of this encounter
--- OUTSIDE RECORDS SUMMARY | 2025-11-09 16:29 | XMS_ITS | Encounter Summary ---
Author Organization [employer] Address [address] [facility] 7t [place] [address] Care Team Providers Care Photolettering Machine Operator Name Role Phone Ana Cristina Zhang MD Primary Care Provide r Reason for Visit * Reason Onset Date Comments REYNALDO RODRIGUES 03/16/2024 Encounter Details Date Type Department Care Team ([facility] st Contact Info) Description 03/16/2024 Telephone [facility] [address] [place] [address] Ana Cristina Zhang MD [address] [place] [address] FYI OINTLUANN Social History Tobacco Use Types [...] for halobetasol (UltraVATE) 0.05 % ointment however sql report writer call pharmacy and they stated they just have to order medication and will be on the pharmacy in the next 2 days. documented in this encounter Plan of Treatment Upcoming Encounters Date Type Department Care Team (Late st Contact Info) Description 01/12/2026 3:00 PM EST Office Visit [facility] [address] [place] [address] Ana Cristina Zhang MD [address] [place] [address] documented as of this encounter Visit Diagnoses Not on filedocumented in this encounter Additional Health Concerns Assessment Noted Time PHQ-9 Depression Total Score: 1 07/12/20 23 1:45 PM EDT documented as of this encounter Care Teams Photolettering Machine Operator Relationship Specialty Start Date End Date Ana Cristina Zhang MD [address] [place] [address] PCP - General Family Medicine 07/30/18 documented as of this encounter
== END 2025-11-09 15:14 ==
LOC: HO.MAMMO 15:13
PROVIDERS: PCP Internal Medicine; Visit Provider Internal Medicine
DX: Z12.31 Encounter for screening mammogram for malignant neoplasm of breast (principal)
CPT/HCPCS: 77063; 77067

== ENCOUNTER → 2025-11-09 15:30 | Outpatient (BNV) | payer OTHER, SELFPAY | PROVIDERS: PCP Internal Medicine; Visit Provider Radiology Body Imaging | DX: Z12.31 Encounter for screening mammogram for malignant neoplasm of breast (principal) | CPT/HCPCS: 77063; 77067 ==